=== PATIENT | male | born 1950 | race Caucasian/White ===

== ENCOUNTER → 2023-06-09 10:28 | Outpatient (REF) | payer MEDICARE, BC, SELFPAY | LOC: RAD 10:28 | PROVIDERS: ATTENDING PHYSICIAN Nurse Practitioner; FAMILY PHYSICIAN Registered Nurse | DX: K70.31 Alcoholic cirrhosis of liver with ascites (principal) | CPT/HCPCS: 76700 ==

== ENCOUNTER 2023-07-01 16:01 | Emergency (ER) | payer MEDICARE, BC, SELFPAY ==
[2023-07-01 16:13] VITALS: BP 121/65
[2023-07-01 16:34] LABS: % Basophils 0.5 % (0-2); % Eosinophils 6.1 % (0-6); % Immature Granulocytes 0.5 % (0-0.5); % Lymphocytes 11.8 % (20.5-51.1); % Monocytes 4.4 % (1.7-9.3); % Neutrophils 76.7 % (42.2-75.2); Absolute Basophils 0.1 10^3/uL (0-0.2); Absolute Eosinophils 0.7 10^3/uL (0-0.7); Absolute Immature Granulocytes 0.1 10^3/uL (0-0.05); Absolute Lymphocytes 1.4 10^3/uL (1.2-3.4); Absolute Monocytes 0.5 10^3/uL (0.1-0.6); Absolute Neutrophils 8.8 10^3/uL (1.4-6.5); Hematocrit 45.2 % (39.0-52.0); Hemoglobin 15.7 g/dL (13.0-18.0); Mean Corp Hgb Conc. 34.7 g/dL (33.0-37.0); Mean Corpuscular Volume 92.2 fL (80.0-94.0); Mean Platelet Volume 9.1 fL (7.4-10.4); Nucleated Red Blood Cells % 0 % (-); Platelet Count 207 10^3/uL (130-400); Red Cell Dist. Width 12.4 % (11.5-14.5); White Blood Cell Count 11.5 10^3/uL (4.8-10.8)
[2023-07-01 16:49] LABS: ALT (SGPT) 17 U/L (0-50); AST (SGOT) 28 U/L (17-59); Albumin 4.2 g/dl (3.5-5.0); Alkaline Phosphatase 70 U/L (38-126); Calcium 9.5 mg/dl (8.4-10.2); Carbon Dioxide 22 mmol/L (22-30); Chloride 106 mmol/L (98-107); Glucose 104 mg/dl (70-99); Lipase 62 U/L (23-300); Potassium 4.1 mmol/L (3.5-5.1); Sodium 135 mmol/L (135-145); Total Bilirubin 0.9 mg/dl (0.2-1.3); Total Protein 6.9 g/dl (6.3-8.2); eGFR > 60.00
[2023-07-01 17:00] LABS: Troponin I < 0.012 ng/ml
--- NOTE | 2023-07-01 17:45 | EDRN ---
[facility] in room w/pt.
[2023-07-01 17:50] VITALS: BP 120/82
[2023-07-01 17:53] LABS: Blood Urea Nitrogen 9 mg/dl (9-20)
[2023-07-01 18:00] VITALS: BP 119/71
[2023-07-01] MEDS: MAALOX 40 PO (18:14)
[2023-07-01] MEDS: PEPCID 20 MG IV (18:14)
--- NOTE | 2023-07-01 19:53 | ED.GENMED ---
History of Present Illness
General
Chief Complaint: Chest Problem
Source: patient, spouse and family
Exam Limitations: none
Time Seen by Provider: 07/01/23 17:35
Nursing documentation reviewed up to this point in time: agreed with
Travel History
Have you had any contact with someone who has COVID-19?: No
Do you have any symptoms of coronavirus? Fever > 100 degrees, chills, cough, shortness of breath, sore throat, loss of taste or smell, muscle aches, or headache?: No
History of Present Illness
History of Present Illness:
73-year-old male with past medical history of hypertension gallstones liver disease presenting to the emergency department today with concerns of burning to the central chest made worse specifically with swallowing and different foods also an itchy
rash to the left upper extremity starting yesterday. He claims that he does have a long history of GERD but this feels somewhat worse. Specifically worse with eating and drinking but improves when not eating and drinking. Denies shortness of
breath denies vomiting denies changes in bowel movements. Also noticed a itchy rash to the left upper extremity starting yesterday's gradually worsening today. Denies any known exposures.
Past History
Past History
ED Past Medical History: Cancer (Skin), GERD and Other (PE, Cirrhosis of the liver years ago, )
ED Past Surgical History: Orthopedic (Ravinder knee replacements Spinal fusion and laminectomy) and Other (MOHS surgery, Umbilical hernia, Angioplasty right leg with stent)
Social History
Tobacco: Non-smoker
Alcohol: Former
Personal: Single
Living: with family
Employment: Employed
Review of Systems
Review of Systems
Allergies reviewed?: Yes
All Other Systems: ROS reviewed and negative except as documented in HPI and ROS
Phy Exam
Physical Exam
Physical Exam:
GENERAL: Alert , in no apparent distress
EYE: pupils equal and reactive
NECK: Supple, no significant adenopathy.
ENT: o/p clr, mmm.
CARDIAC: Regular rate and rhythm .
LUNGS: Clear breath sounds bilaterally, no acute respiratory distress, no wheezes/rales/rhonchi
ABDOMEN: Soft, without focal tenderness, no r/g, no cvat
NEUROLOGICAL: Alert and oriented, no focal neuro deficits
SKIN: Left upper extremity in the bicep and area of a raised wheal roughly 10 cm in diameter total no pain seems to be specifically isolated to the superficial tissue of the arm. No deep swelling or warmth. Warm and dry, skin intact.
MUSCULOSKELETAL: No edema, well perfused.
PSYCH: Normal and appropriate interaction.
Course
Orders/Labs/Results
Orders:
Orders
07/01/23 16:03
EKG [Electrocardiogram (*1)] Urgent
Reason for Study: Chest Pain
EKG- Treatment ONCE
07/01/23 16:24
Complete Blood Count/With Diff Urgent
Comprehensive Metabolic Panel Urgent
Lipase Urgent
Troponin I Urgent
07/01/23 17:36
Chest [CR Chest - 2 Views ] Urgent
Comment:
Reason For Exam: cp
07/01/23 17:49
Famotidine [Pepcid] 20 mg IV NOW STA
Mag Hydrox/Al Hydrox/Simeth [Maalox] 30 ml Phenobarb/Hyoscy/Atropine/Scop [] 10 ml PO NOW
US Abdomen Limited Urgent
Reason For Exam: upper abd pain
07/01/23 18:08
Mag Hydrox/Al Hydrox/Simeth [Maalox] 30 ml .ROUTE .STK-MED ONE
Phenobarb/Hyoscy/Atropine/Scop [] 10 ml .ROUTE .STK-MED ONE
Abnormal Lab Results
07/01/23
16:24
WBC 11.5 H 10^3/uL
(4.8-10.8)
MCH 32.0 H pg
(27.0-31.0)
Abs Immat Gran (auto) 0.1 H 10^3/uL
(0-0.05)
Absolute Neuts (auto) 8.8 H 10^3/uL
(1.4-6.5)
Neutrophils % 76.7 H %
(42.2-75.2)
Lymphocytes % 11.8 L %
(20.5-51.1)
Eosinophils % 6.1 H %
(0-6)
Creatinine 0.6 L mg/dL
(0.7-1.3)
Glucose 104 H mg/dl
(70-99)
07/01/23 16:24
07/01/23 16:24
Vital Signs
Initial and Last Documented VS:
Initial Vital Signs
Temp Pulse Resp BP Pulse Ox
98.1 F 80 18 121/65 98
07/01/23 16:13 07/01/23 16:13 07/01/23 16:13 07/01/23 16:13 07/01/23 16:13
Last Documented Vital Signs
Temp Pulse Resp BP Pulse Ox
98.1 F 80 18 121/65 98
07/01/23 16:13 07/01/23 16:13 07/01/23 16:13 07/01/23 16:13 07/01/23 16:13
MDM/Problems Addressed
MDM/Problems Addressed:
73-year-old male presenting to the emergency department today with concerns of discomfort to the chest mainly after eating described as burning and achy discomfort some mild nausea no vomiting vital signs normal upon arrival EKG without ischemic
changes troponin negative normal LFTs normal bilirubin normal lipase ultrasound of the abdomen showed gallstones that he has had chronically but no pain to the right upper quadrant on exam. Chest x-ray without acute abnormalities. Symptoms seem to
be most consistent with likely GI pathology rather than cardiac. Patient had reassuring testing advised for close outpatient follow-up otherwise return precautions given. Patient was written for topical steroid for the rash of the arm and advised
to use antihistamines.
*Critical Care Note
Total Time (30-74mins, 75-104mins- exclusive of procedures): Not Applicable
ED Attending Note
-
Portions of this chart may have been created with voice recognition software.� Occasional wrong word or��sound alike� substitutions may have occurred due to the inherent limitations of voice recognition software.
Discharge Plan
Departure
Patient Disposition: Home (Routine Discharge)
Date of Disposition: 07/01/23
Time of Disposition: 19:56
Patient with high blood pressure during this ER visit?: No
Condition: Good
Covid-19: Not Applicable
Discharge Problem:
Chest pain, Acid reflux, Allergic dermatitis
Instructions: Chest Pain PCP Follow Up
Prescriptions:
New
sucralfate 100 mg/mL suspension
10 ml PO BID Qty: 200 0RF
famotidine 20 mg tablet
20 mg PO BID Qty: 14 0RF
triamcinolone acetonide 0.5 % ointment
1 applic topical BID Qty: 60 0RF
diphenhydramine HCl 25 mg tablet
25 mg PO HS PRN (Reason: allergy symptoms) Qty: 10 0RF
cetirizine [Zyrtec] 10 mg tablet
10 mg PO DAILY Qty: 10 0RF
No Action
cholecalciferol (vitamin D3) [Vitamin D3] 1,000 UNIT tablet
1,000 unit PO DAILY
spironolactone 100 MG tablet
100 mg PO DAILY
cyanocobalamin (vitamin B-12) 1,000 MCG tablet
1 tab PO DAILY
biotin 1 MG tablet
1 mg PO DAILY
nadolol 40 MG tablet
40 mg PO HS
milk thistle 150 mg Capsule
150 mg PO BID
ascorbic acid (vitamin C) [Vitamin C] 500 mg Tablet
500 mg PO DAILY
magnesium 250 mg Tablet
1,000 mg PO DAILY
PreserVision AREDS-2 250-90-40-1 mg Capsule
1 tab PO BID
garlic extract 400 mg Tablet
400 mg PO DAILY
vitamin B6-vitamin E-magnesium
500 mg PO DAILY
zinc
500 mg PO DAILY
omeprazole 40 mg Capsule,Delayed Release(Dr/Ec)
40 mg PO DAILY
oxymetazoline [Nasal [place] Sinus] 0.05 % [place],Non-Aerosol
1 spray INTRANASAL ONCE
clopidogrel 75 mg Tablet
75 mg PO DAILY Qty: 90 0RF
aspirin 81 mg Tablet,Chewable
81 mg PO DAILY Qty: 90 0RF
cephalexin 500 mg capsule
500 mg PO Q6H 10 Days Qty: 40 0RF
Referrals:
NONE,* [Family Provider] -
Activity Restrictions/Additional Instructions:
You came to the emergency department today with concerns of chest discomfort. You had a reassuring evaluation that did not show any emergent cardiac cause. This could be related to a GI problem. Please take the sucralfate as well as the
famotidine and continue your omeprazole to help with symptoms. For the allergic reaction to the left arm please take Benadryl in the and Zyrtec in the morning and also use the topical triamcinolone to help with symptoms. Please follow closely with
your GI doctor within 1 to 2 weeks for further assessment. Return to the emergency department for any worsening, new or concerning symptoms.
Interventions
Interventions:
*Risk Screen - Suicide Last Done: 07/01/23 17:52
*General Assessment Last Done: 07/01/23 17:52
*Neglect/Abuse Screening Last Done: 07/01/23 17:52
ED- Fall Risk Assessment Last Done: 07/01/23 17:52
*ED COVID-19 Vaccine History Last Done: 07/01/23 17:52
ED- Cardiac Assessment Last Done: 07/01/23 17:52
ED- Pulmonary Assessment Last Done: 07/01/23 17:52
Discharge Date and Time
Print Language: UZBEK
[2023-07-01 20:15] VITALS: BP 125/74
== END 2023-07-01 20:28 | disposition home or self-care (01) ==
LOC: EMR 16:01
PROVIDERS: Registered Nurse; EMERGENCY PHYSICIAN Emergency Medicine
DX: L23.9 Allergic contact dermatitis, unspecified cause (principal); R07.89 Other chest pain; K21.9 Gastro-esophageal reflux disease without esophagitis; I10 Essential (primary) hypertension; K74.60 Unspecified cirrhosis of liver; K80.20 Calculus of gallbladder without cholecystitis without obstruction; M19.90 Unspecified osteoarthritis, unspecified site; Z79.82 Long term (current) use of aspirin; Z96.653 Presence of artificial knee joint, bilateral; Z85.828 Personal history of other malignant neoplasm of skin; Z86.711 Personal history of pulmonary embolism; Z98.1 Arthrodesis status
CPT/HCPCS: 99284; 96374; 71046; 76705; 80053; 83690; 84484; 85025; 93005

== ENCOUNTER → 2023-07-06 07:33 | Outpatient (REF) | payer MEDICARE, BC, SELFPAY | LOC: RAD 07:33 | PROVIDERS: ATTENDING PHYSICIAN Surgery Vascular Surgery; FAMILY PHYSICIAN Registered Nurse | DX: I73.9 Peripheral vascular disease, unspecified (principal) | CPT/HCPCS: 93922; 93925 ==

== ENCOUNTER → 2023-07-18 08:34 | Outpatient (REF) | payer MEDICARE, BC, SELFPAY | LOC: RAD 08:34 | PROVIDERS: ATTENDING PHYSICIAN Surgery Vascular Surgery; FAMILY PHYSICIAN Registered Nurse | DX: I70.90 Unspecified atherosclerosis (principal); Z13.6 Encounter for screening for cardiovascular disorders; I77.1 Stricture of artery | CPT/HCPCS: 76770; 93880 ==

== ENCOUNTER → 2023-08-12 06:37 | Day surgery (SDC) | payer MEDICARE, BC, SELFPAY | LOC: GI 06:37 | PROVIDERS: ATTENDING PHYSICIAN Internal Medicine Gastroenterology | DX: Z12.11 Encounter for screening for malignant neoplasm of colon (principal); Z86.010 Personal history of colon polyps; K64.0 First degree hemorrhoids; D12.0 Benign neoplasm of cecum; D12.3 Benign neoplasm of transverse colon; D12.4 Benign neoplasm of descending colon; D12.7 Benign neoplasm of rectosigmoid junction; K63.5 Polyp of colon; R07.9 Chest pain, unspecified; R10.84 Generalized abdominal pain; K74.60 Unspecified cirrhosis of liver; K57.10 Diverticulosis of small intestine without perforation or abscess without bleeding; K22.89 Other specified disease of esophagus; K31.89 Other diseases of stomach and duodenum; R12 Heartburn; K29.50 Unspecified chronic gastritis without bleeding; L83 Acanthosis nigricans | CPT/HCPCS: 45385; 45380; 43239; 88305; 88342 ==

== ENCOUNTER → 2023-08-25 15:04 | Outpatient (REF) | payer MEDICARE, BC, SELFPAY ==
[2023-08-25 16:23] LABS: % Basophils 0.9 % (0-2); % Eosinophils 7.2 % (0-6); % Immature Granulocytes 0.1 % (0-0.5); % Lymphocytes 26.1 % (20.5-51.1); % Monocytes 9.2 % (1.7-9.3); % Neutrophils 56.5 % (42.2-75.2); Absolute Basophils 0.1 10^3/uL (0-0.2); Absolute Eosinophils 0.5 10^3/uL (0-0.7); Absolute Lymphocytes 1.8 10^3/uL (1.2-3.4); Absolute Monocytes 0.6 10^3/uL (0.1-0.6); Absolute Neutrophils 3.9 10^3/uL (1.4-6.5); Hematocrit 44.6 % (39.0-52.0); Hemoglobin 14.9 g/dL (13.0-18.0); Mean Corp Hgb Conc. 33.4 g/dL (33.0-37.0); Mean Corpuscular Hgb 31.5 pg (27.0-31.0); Mean Corpuscular Volume 94.3 fL (80.0-94.0); Mean Platelet Volume 9.5 fL (7.4-10.4); Nucleated Red Blood Cells % 0 % (-); Platelet Count 217 10^3/uL (130-400); Red Blood Cell Count 4.73 10^6/uL (4.70-6.10)
[2023-08-25 16:37] LABS: ALT (SGPT) 13 U/L (0-50); AST (SGOT) 23 U/L (17-59); Albumin 3.9 g/dl (3.5-5.0); Alkaline Phosphatase 80 U/L (38-126); Blood Urea Nitrogen 8 mg/dl (9-20); Calcium 9.3 mg/dl (8.4-10.2); Carbon Dioxide 26 mmol/L (22-30); Chloride 104 mmol/L (98-107); Glucose 87 mg/dl (70-99); Potassium 4.2 mmol/L (3.5-5.1); Sodium 138 mmol/L (135-145); Total Bilirubin 0.8 mg/dl (0.2-1.3); Total Protein 6.5 g/dl (6.3-8.2); eGFR > 60.00
== END ==
LOC: RAD 15:04
PROVIDERS: ATTENDING PHYSICIAN Registered Nurse
DX: M79.89 Other specified soft tissue disorders (principal); R60.0 Localized edema
CPT/HCPCS: 36415; 80053; 85025; 93971

== ENCOUNTER 2023-10-21 06:09 | Day surgery (SDC) | payer MEDICARE, BC, SELFPAY ==
[2023-10-10 07:12] VITALS: BMI 31.5
--- NOTE | 2023-10-10 14:07 | PTCARENOTE ---
Patients 7/8 EKG abnormal- reviewed by Dr. Foley- no additional interventions required
[2023-10-21] VITALS (12 sets, daily range): BP systolic 5–134; BP diastolic 55–79; BMI 31.5
[2023-10-21] MEDS: TYLENOL 1000 MG PO (06:44)
[2023-10-21] MEDS: NORMOSOL-R 1000 IV (06:45)
--- NOTE | 2023-10-21 07:02 | HP.FOC2 ---
Focused History & Physical
Chief Complaint
HPI:
Chief Complaint: Symptomatic cholelithiasis symptomatic cholelithiasis
HPI / Indication for Planned Procedure: Patient is a 73-year-old male recently seen in outpatient surgical evaluation secondary to a history of intermittent postprandial abdominal pain. Typically occurs within 30 minutes of eating lasting for 1-2
hrs then subsiding. known gallstones
Relevant Past Medical History: Hypertension and Other (ETOH cirrhosis - compensated; OA, h/o PE)
Relevant Social History: ETOH (former)
Relevant Family History: Negative
Relevant Past Surgical History: Positive for (b/l TKR; laminectomy, right popliteal stent)
Review of Systems
Review of Pertinent Systems: All Systems Negative
Medication
See Medication form for detailed medications: Yes
Medication List (including Herbals & OTC):
spironolactone 100 mg tablet 100 mg PO DAILY 10/23/20
nadolol 40 mg tablet 40 mg PO HS 10/29/20
milk thistle 150 mg capsule 150 mg PO BID 08/18/22
zinc 500 mg PO DAILY 08/18/22
aspirin 81 mg chewable tablet 81 mg PO DAILY #90 tabs 09/01/22
omeprazole 40 mg capsule,delayed release 40 mg PO DAILY 09/01/22
vitamin [id number] acid 1 tab PO PRN PRN supplement 10/19/23
Medications Reviewed: Yes
Allergies and Reactions
Patient has Allergies: No
Noted Allergies and Reactions:
Allergy/AdvReac Type Severity Reaction Status Date / Time
No Known Allergies Allergy Verified 10/21/23 06:26
Pertinent Physical Exam
All Other Systems: Negative
Head/Neck: Normal
Lungs: Normal
Heart: Normal
Abdomen: Normal
Extremities: Normal
Neurological: Normal
Diagnosis / Assessment
73 y/o male presending for schedule cholecystectomy for management of CCC/symptomatic cholelithiasis
Plan / Procedure
lap rodriguez
Anesthesia/Sedation to be done by Anesthesia Provider: Yes
--- NOTE | 2023-10-21 07:06 | W.SUR.PREOP ---
Pre-Operative Surgical Note
-
I have examined this patient prior to the performance of the scheduled procedure.
The patient's condition is unchanged from the time of the current History and
Physical and the patient is able to undergo the scheduled procedure.
--- NOTE | 2023-10-21 11:50 | W.IMMPOSTOP ---
Addendum entered and electronically signed by Dread Gabriel MD 10/25/23 11:09:
#[id number]
Original Note:
Surgical Immed Post Op Note
-
Primary Surgeon: Harvey
Assisting Surgeon: Luke De La O MD
Tyler Freitas PGY1
Pre-op Diagnosis: CCC; h/o etoh cirrhosis
Post-op Diagnosis: CCC; h/o etoh cirrhosis
Procedure Performed: lap rodriguez with IOC
Anesthesia Type: GETA + 0.25% Marcaine
Specimen / Cultures: GB
Estimated Blood Loss: 200mL
Complications: none immediate
Operative Findings: hepatomegaly with fibrosis c/w h/o etoh cirrhosis.
chronic GB wall thickening with large gallstones occupying lumen of GB; fibrotic tissue planes obscuring cystic triangle and increasing complexity of dissection. dome down cholecystectomy. unable to circumferentially isolate cystic duct but
biliary anatomy confirmed with IOC. cystic duct oversewn with interrupted 2-0 silk. after closure no active bile leak seen. increased operative blood loss d/t portal htn and GB wall diffuse oozing. 1 gm TXA administered.
Drain: 19 julio cesar to monitor for post op bile leak potential
[2023-10-21] MEDS: DILAUDID 0.25 MG IV (12:03)
[2023-10-21] MEDS: NSS 1000 IV ×2 (12:23→21:13)
--- NOTE | 2023-10-21 13:02 | PTCARENOTE ---
1245: Patient arrived to 2S. Full head to toe assessment completed. Lap sites on abdomen open to air and intact. R side FRANKLIN drain intact. IVF running per order. Call ryan within reach and bed in lowest position. Significant other at bedside.
--- NOTE | 2023-10-21 15:10 | CM ---
Addendum entered by Romy Hernandez RN 10/21/23 15:54:
Rhonda fax: [phone]
Original Note:
Reviewed the chart notes and spoke with the patient at the bedside. The patient resides with his significant other in a two story home with no steps to enter through garage. The patient reports no DME/VN/SNF. The patient confirmed his pharmacy of
choice is [facility]. The patient will be staying with his significant other's home. CM continues to be available to patient/family and is monitoring medical plan for needs at discharge.
Plan: Discharge to significant other's home at discharge. Rhonda VELEZ referral sent for FRANKLIN drain management.
[2023-10-21] MEDS: DILAUDID 0.5 MG IV ×2 (15:49→21:08)
[2023-10-21] MEDS: LOVENOX 40 MG SC (17:20)
[2023-10-21] MEDS: CORGARD 40 MG PO (21:07)
[2023-10-22] MEDS: DILAUDID 0.5 MG IV (03:14)
[2023-10-22 03:53] VITALS: BP 97/51
[2023-10-22 07:20] VITALS: BP 97/48
[2023-10-22 07:37] LABS: Hematocrit 41.3 % (39.0-52.0); Mean Corp Hgb Conc. 33.9 g/dL (33.0-37.0); Mean Corpuscular Hgb 31.2 pg (27.0-31.0); Mean Platelet Volume 9.6 fL (7.4-10.4); Platelet Count 150 10^3/uL (130-400); Red Blood Cell Count 4.49 10^6/uL (4.70-6.10); Red Cell Dist. Width 12.8 % (11.5-14.5); White Blood Cell Count 10.1 10^3/uL (4.8-10.8)
[2023-10-22 07:55] LABS: ALT (SGPT) 30 U/L (0-50); AST (SGOT) 42 U/L (17-59); Albumin 3.3 g/dl (3.5-5.0); Alkaline Phosphatase 69 U/L (38-126); Blood Urea Nitrogen 9 mg/dl (9-20); Calcium 8.5 mg/dl (8.4-10.2); Carbon Dioxide 23 mmol/L (22-30); Chloride 104 mmol/L (98-107); Estimated Creatinine Clearance > 125 ml/min; Glucose 101 mg/dl (70-99); Potassium 4.1 mmol/L (3.5-5.1); Sodium 136 mmol/L (135-145); Total Bilirubin 1.4 mg/dl (0.2-1.3); Total Protein 5.7 g/dl (6.3-8.2); eGFR > 60.00
[2023-10-22] MEDS: VITAMIN B1 100 MG PO (08:51)
[2023-10-22] MEDS: FOLVITE 1 MG PO (08:51)
[2023-10-22] MEDS: LOW STRENGTH ASPIRIN 81 MG PO (08:51)
[2023-10-22] MEDS: PROTONIX 40 MG PO (08:51)
--- NOTE | 2023-10-22 10:13 | W.PN.GS2 ---
Today's Communication / Plan
-
Dispo planning
Assessment / Plan
-
73 yo male with a h/o daily ETOH, cirrhosis and htn presenting for scheduled cholecystectomy. POD #1 lap rodriguez with ioc, complex case given portal htn and fibrotic tissue obscuring cystic triangle. FRANKLIN in place with nonbilious SSF noted. Labs stable
post op, slight rise in bilirubin.
Tolerating diet, but awaiting passage of flatus with distention noted
BP low normal this am, otherwise AFVSS. Suspect IV narcotic contributing to low bp
--Continue LFD
--Analgesics prn, change from IV to PO
--D/C IVF
--Continue FRANKLIN, will remain in place upon d/c. VNA arrangements made
--Tentative d/c today vs tomorrow pending diet tolerance over the course of the day
Subjective Data
-
Date of Service: October 22, 2023
Patient seen and examined at bedside with Dr. Ordaz. Denies n/v. Tolerating diet. Feels bloated, has not yet passed flatus. Soreness to RUQ but managable.
Objective Data
-
Intake and Output
10/21/23 10/22/23 10/23/23
06:59 06:59 06:59
Intake Total 3070 / 3070
Output Total 455 / 455 5 / 5
Balance 2615 / 2615 -5 / -5
Intake:
Oral fluids 1170 / 1170
IV fluids (Total) 1900 / 1900
Normosol 100 / 100
Output:
Drain Output (Total) 105 / 105 5 / 5
Right Abdomen Nadir-Larson 105 / 105 5 / 5
Urine, Voided 350 / 350
Other:
Number of approximated MODERATE 2
amounts of urine
Number of approximated LARGE 1
amounts of urine
Vital Signs
Temp Pulse Resp BP Pulse Ox
97.2 F 57 20 97/48 96
10/22/23 09:00 10/22/23 09:00 10/22/23 07:20 10/22/23 08:49 10/22/23 07:20
Lab Results
10/22/23 06:36
10/22/23 06:36
Calcium 8.5 mg/dl (8.4-10.2) 10/22/23 06:36
Total Bilirubin 1.4 mg/dl (0.2-1.3) H 10/22/23 06:36
AST 42 U/L (17-59) 10/22/23 06:36
ALT 30 U/L (0-50) 10/22/23 06:36
Alkaline Phosphatase 69 U/L (38-126) 10/22/23 06:36
Total Protein 5.7 g/dl (6.3-8.2) L 10/22/23 06:36
Albumin 3.3 g/dl (3.5-5.0) L 10/22/23 06:36
Physical Exam
-
NAD
ABD softly distended, NT, LOAD CHECKER
FRANKLIN with SSF (nonbilious)
Incisions with intact glue, no erythema
[2023-10-22 11:16] VITALS: BP 105/67
--- NOTE | 2023-10-22 11:19 | PTCARENOTE ---
Patient with concerns about FRANKLIN drain remaining in place for discharge. RN confirmed with Earnestine Abreu LEASE ADMINISTRATION SUPERVISOR that FRANKLIN is to stay in place. RN clarified with patient FRANKLIN drain is to stay in place and provided education. Patient refused teaching. Care
ongoing at this time.
[2023-10-22] MEDS: NSS IV (12:55)
--- NOTE | 2023-10-22 14:35 | CM ---
Patient has yael medically cleared for discharge to home with [facility] services. [facility] FAX # [phone]. Patient has arranged for transport home.
== END 2023-10-22 15:08 | disposition home or self-care (01) ==
LOC: SDS 06:09
PROVIDERS: ATTENDING PHYSICIAN Surgery
DX: K80.20 Calculus of gallbladder without cholecystitis without obstruction (principal); R16.0 Hepatomegaly, not elsewhere classified; K66.0 Peritoneal adhesions (postprocedural) (postinfection); Z87.19 Personal history of other diseases of the digestive system
CPT/HCPCS: 47563; 88304; 74300; 76000; 80053; 85027

== ENCOUNTER → 2024-01-13 10:37 | Outpatient (REF) | payer MEDICARE, BC, SELFPAY | LOC: HWRAD 10:37 | PROVIDERS: ATTENDING PHYSICIAN Nurse Practitioner; FAMILY PHYSICIAN Registered Nurse | DX: K70.31 Alcoholic cirrhosis of liver with ascites (principal); K21.9 Gastro-esophageal reflux disease without esophagitis; I85.00 Esophageal varices without bleeding | CPT/HCPCS: 76700 ==

== ENCOUNTER → 2024-01-19 08:07 | Outpatient (REF) | payer MEDICARE, BC, SELFPAY | LOC: HWRAD 08:07 | PROVIDERS: ATTENDING PHYSICIAN Surgery; FAMILY PHYSICIAN Registered Nurse | DX: Z90.49 Acquired absence of other specified parts of digestive tract (principal); R93.89 Abnormal findings on diagnostic imaging of other specified body structures | CPT/HCPCS: 74177; Q9967 ==

== ENCOUNTER → 2024-01-27 07:24 | Outpatient (REF) | payer MEDICARE, BC, SELFPAY | LOC: RAD 07:24 | PROVIDERS: ATTENDING PHYSICIAN Physician Assistant; FAMILY PHYSICIAN Registered Nurse; OTHER PHYSICIAN Internal Medicine Gastroenterology; REFERRING PHYSICIAN Surgery Vascular Surgery | DX: I73.9 Peripheral vascular disease, unspecified (principal); R60.0 Localized edema; I65.22 Occlusion and stenosis of left carotid artery | CPT/HCPCS: 93880; 93922; 93925 ==

== ENCOUNTER → 2024-01-30 07:38 | Outpatient (REF) | payer MEDICARE, BC, SELFPAY ==
[2024-01-30 08:10] LABS: % Basophils 1.1 % (0-2); % Eosinophils 5.8 % (0-6); % Immature Granulocytes 0.3 % (0-0.5); % Lymphocytes 22.9 % (20.5-51.1); % Monocytes 7.6 % (1.7-9.3); % Neutrophils 62.3 % (42.2-75.2); Absolute Basophils 0.1 10^3/uL (0-0.2); Absolute Eosinophils 0.4 10^3/uL (0-0.7); Absolute Lymphocytes 1.7 10^3/uL (1.2-3.4); Absolute Monocytes 0.6 10^3/uL (0.1-0.6); Absolute Neutrophils 4.5 10^3/uL (1.4-6.5); Hematocrit 43.6 % (39.0-52.0); Hemoglobin 14.9 g/dL (13.0-18.0); Mean Corp Hgb Conc. 34.2 g/dL (33.0-37.0); Mean Corpuscular Hgb 31.5 pg (27.0-31.0); Mean Corpuscular Volume 92.2 fL (80.0-94.0); Mean Platelet Volume 8.9 fL (7.4-10.4); Nucleated Red Blood Cells % 0 % (-); Platelet Count 212 10^3/uL (130-400); Red Blood Cell Count 4.73 10^6/uL (4.70-6.10); White Blood Cell Count 7.2 10^3/uL (4.8-10.8)
[2024-01-30 08:22] LABS: INR 0.98; PT 12.7 Sec (11.4-14.6)
[2024-01-30 08:55] VITALS: BP 137/93; BP_SYST 55
[2024-01-30] MEDS: STERILE WATER FOR INJECTION 20 ML IV (09:32)
[2024-01-30] MEDS: ROCEPHIN 2000 MG IV (09:32)
[2024-01-30 12:08] VITALS: BP 138/100
== END ==
LOC: RADI 07:38
PROVIDERS: ATTENDING PHYSICIAN Surgery; FAMILY PHYSICIAN Registered Nurse
DX: K66.8 Other specified disorders of peritoneum (principal); Z90.49 Acquired absence of other specified parts of digestive tract
CPT/HCPCS: 36415; 49406; 85025; 85610; 87015; 87070; 87205; 99152

== ENCOUNTER 2024-02-09 22:42 | Observation (INO) | payer MEDICARE, BC, SELFPAY ==
[2024-02-09 19:13] VITALS: BP 135/66
[2024-02-09 19:33] LABS: % Basophils 0.6 % (0-2); % Eosinophils 2.6 % (0-6); % Immature Granulocytes 0.3 % (0-0.5); % Lymphocytes 8.9 % (20.5-51.1); % Neutrophils 81.6 % (42.2-75.2); Absolute Basophils 0.1 10^3/uL (0-0.2); Absolute Eosinophils 0.3 10^3/uL (0-0.7); Absolute Lymphocytes 1.1 10^3/uL (1.2-3.4); Absolute Monocytes 0.7 10^3/uL (0.1-0.6); Hematocrit 39.6 % (39.0-52.0); Hemoglobin 13.9 g/dL (13.0-18.0); Mean Corp Hgb Conc. 35.1 g/dL (33.0-37.0); Mean Platelet Volume 8.9 fL (7.4-10.4); Nucleated Red Blood Cells % 0 % (-); Platelet Count 186 10^3/uL (130-400); Red Blood Cell Count 4.35 10^6/uL (4.70-6.10); Red Cell Dist. Width 12.8 % (11.5-14.5); White Blood Cell Count 12.3 10^3/uL (4.8-10.8)
[2024-02-09 19:44] VITALS: BP 134/66
[2024-02-09 19:48] VITALS: BMI 33.0
[2024-02-09 19:49] LABS: ALT (SGPT) 19 U/L (0-50); AST (SGOT) 25 U/L (17-59); Alkaline Phosphatase 61 U/L (38-126); Blood Urea Nitrogen 12 mg/dl (9-20); Calcium 9.5 mg/dl (8.4-10.2); Carbon Dioxide 25 mmol/L (22-30); Chloride 103 mmol/L (98-107); Glucose 146 mg/dl (70-99); Lipase 63 U/L (23-300); Potassium 4.6 mmol/L (3.5-5.1); Sodium 138 mmol/L (135-145); Total Bilirubin 0.9 mg/dl (0.2-1.3); Total Protein 6.4 g/dl (6.3-8.2); eGFR > 60.00
[2024-02-09 20:00] VITALS: BP 139/77
--- NOTE | 2024-02-09 20:23 | ED.GENMED ---
History of Present Illness
General
Chief Complaint: Post Operative Problem(s)
Source: patient and spouse
Exam Limitations: none
Time Seen by Provider: 02/09/24 19:46
Nursing documentation reviewed up to this point in time: agreed with
History of Present Illness
History of Present Illness:
Patient status post cholecystectomy in October 2023, who subsequently developed fluid collection around his surgical site, requiring FRANKLIN drain 2 weeks ago, presents to ED secondary to persistent right-sided abdominal discomfort with swelling sensation.
Denies fever or chills. Denies nausea or vomiting. Denies diarrhea. Patient reports normal bowel movements. Denies trauma. Denies chest pain. Denies shortness of breath. Denies coughing. Denies leg pain. Patient was evaluated by his
surgeon, Dr. Gabriel, 2 days ago, secondary to his symptoms. At that time, discussion was held, to potentially see a GI physician for endoscopic stent placement.
Past History
Past History
ED Past Medical History: Cancer (Skin), GERD and Other (PE, Cirrhosis of the liver years ago, )
ED Past Surgical History: Orthopedic (Ravinder knee replacements Spinal fusion and laminectomy) and Other (MOHS surgery, Umbilical hernia, Angioplasty right leg with stent)
Social History
Tobacco: Non-smoker
Alcohol: Former
Personal: Single
Living: with family
Employment: Employed
Review of Systems
Review of Systems
Allergies reviewed?: Yes
All Other Systems: ROS reviewed and negative except as documented in HPI and ROS
Constitutional: Reports no symptoms; Denies fever or chills
EENT: Reports no symptoms
Cardiac: Reports no symptoms
ABD/GI: Reports abdominal pain; Denies nausea, vomiting or diarrhea
Musculoskeletal: Reports no symptoms
Skin: Reports no symptoms
Neurological: Reports no symptoms
Phy Exam
Physical Exam
Physical Exam:
Physical Exam
General: mild distress, not acutely ill. afebrile
Head: nc/at. eomi
Neck: supple. no meningeal signs.
Heart: s1/s2 regular rate and rhythm, no murmur. equal radial pulses.
Lungs: no acute respiratory distress. clear bilaterally
Abdomen: normal bowel sounds. diffusely tender to palpation. FRANKLIN drain in place, and draining into bag
Neuro: alert and oriented. no focal neurological deficits
Skin: no rash
Psychiatric: well kept. interactive and cooperative
Extremities: no edema. no calf tenderness.
Course
Orders/Labs/Results
Orders:
Orders
02/09/24 Dinner
Regular
At Your Request: Full Participation
02/09/24 19:16
EKG [Electrocardiogram (*1)] Urgent
Reason for Study: Shortness of Breath
02/09/24 19:17
EKG- Treatment ONCE
Urinalysis Reflex To Culture Urgent
Date Specimen was Collected: 02/09/24
Time Specimen was Collected: 19:17
02/09/24 19:22
Complete Blood Count/With Diff Urgent
Comprehensive Metabolic Panel Urgent
Lipase Urgent
02/09/24 21:00
Ketorolac [Toradol] 15 mg IV NOW STA
02/09/24 22:05
Admit/Transfer Patient As Directed
Co-Sign Provider:
Level of Care: Observation services
Assign to:: Medical/Surgical
Physician / Group: dr paulino
Diagnosis: intractable right sided abd pain post percutaneous drain
PRN Pain Medication Management As Directed
May give lesser potent ordered pain med per pt: Yes
preference::
Protocol:: Medication orders for pain may be administered in a
manner that supports deferring to patient preference
when the pt is:
- Requesting an ordered lesser potent pain medication.
Least to most potent pain medications are defined
as: acetaminophen < NSAID < tramadol < opioids
(morphine, oxycodone, hydromorphone).
- Requesting a lesser dose of the same medication IF
ORDERED.
- Requesting a less intrusive route of administration
if both routes are prescribed by the provider (PO <
IV).
02/09/24 22:08
Code Status As Directed
Resuscitation Status: Full Code
02/09/24 23:01
Acetaminophen [Tylenol] 650 mg PO Q4HPRN PRN
Docusate Sodium [Colace] 100 mg PO BIDPRN PRN
HYDROmorphone [Dilaudid] 0.5 mg IV Q2HPRN PRN
Ketorolac [Toradol] 15 mg IV Q6HPRN PRN
Ondansetron Injectable [Zofran] 4 mg IV Q6HPRN PRN
02/09/24 23:01
Consult Notification Routine
Specialty to Notify: Gastroenterology
GASTROINTESTINAL CONSULT Routine
Consulting Provider: Idania Ibarra
Was physician already notified: No
Reason for consult: eval for endoscopic stent, hx fluid collection post rodriguez in october 2023
Activity As Directed
Activity Level: Out of Bed-Early Mobility
Intake/ Output As Directed
Frequency: Per unit guidelines
Vital Signs As Directed
Frequency: Per unit guidelines
DX Deep Vein Thrombosis Video Routine
02/09/24 23:09
Artificial Tears (Pf) [Refresh Eye Drops (Pf)] 1 drops BOTH EYES Q4HPRN PRN
02/09/24 23:15
Nadolol [Corgard] 40 mg PO HS
02/10/24 Breakfast
NPO
Allow oral meds: Yes
Allow clear liquids: No
NPO with Ice Chips: Yes
Complete Blood Count/With Diff IN AM
Comprehensive Metabolic Panel IN AM
02/10/24 08:00
Aspirin Chewable [Low Strength Aspirin] 81 mg PO DAILY
Pantoprazole [Protonix] 40 mg PO DAILY
Pyridoxine [Vitamin B-6] 100 mg PO DAILY
Spironolactone [Aldactone] 100 mg PO DAILY
Zinc 50mg (Zinc Sulfate 220mg) [Zinc] 50 mg PO DAILY
02/10/24 18:00
Enoxaparin Sodium [Lovenox] 40 mg SC QPM
Abnormal Lab Results
02/09/24
19:22
WBC 12.3 H 10^3/uL
(4.8-10.8)
RBC 4.35 L 10^6/uL
(4.70-6.10)
MCH 32.0 H pg
(27.0-31.0)
Absolute Neuts (auto) 10.0 H 10^3/uL
(1.4-6.5)
Absolute Lymphs (auto) 1.1 L 10^3/uL
(1.2-3.4)
Absolute Monos (auto) 0.7 H 10^3/uL
(0.1-0.6)
Neutrophils % 81.6 H %
(42.2-75.2)
Lymphocytes % 8.9 L %
(20.5-51.1)
Glucose 146 H mg/dl
(70-99)
02/09/24 19:22
02/09/24 19:22
Vital Signs
Initial and Last Documented VS:
Initial Vital Signs
Temp Pulse Resp BP Pulse Ox
98.7 F 85 17 135/66 97
02/09/24 19:13 02/09/24 19:13 02/09/24 19:13 02/09/24 19:13 02/09/24 19:13
Last Documented Vital Signs
Temp Pulse Resp BP Pulse Ox
97.6 F 66 18 157/74 97
02/09/24 23:05 02/09/24 23:05 02/09/24 23:05 02/09/24 23:05 02/09/24 23:05
MDM/Problems Addressed
MDM/Problems Addressed:
Discussed with on-call surgeon, Dr. Paulino. Does not recommend any imaging studies at this time, nor IV antibiotics, as patient is afebrile. However, in light of patient's ongoing symptoms, does recommend admission to the hospital, for pain
control and further evaluation, including potential imaging studies versus GI intervention, i.e. stent placement.
*Critical Care Note
Total Time (30-74mins, 75-104mins- exclusive of procedures): Not Applicable
ED Attending Note
-
Portions of this chart may have been created with voice recognition software.� Occasional wrong word or��sound alike� substitutions may have occurred due to the inherent limitations of voice recognition software.
Discharge Plan
Departure
Patient Disposition: Admit
Date of Disposition: 02/09/24
Time of Disposition: 21:08
Admit to: Med/Surg
Presentation/result/management discussed w/ accepting MD/DO:
Discharge Problem:
Abdominal pain
Interventions
Interventions:
*Risk Screen - Suicide Last Done: 02/09/24 19:10
*General Assessment Last Done: 02/09/24 19:13
*Neglect/Abuse Screening Last Done: 02/09/24 22:58
ED- Fall Risk Assessment Last Done: 02/09/24 19:49
*ED COVID-19 Vaccine History Last Done: 02/09/24 22:58
*Nursing Disposition Last Done: 02/09/24 22:58
ED-Skin Assessment Last Done: 02/09/24 19:49
Discharge Date and Time
Discharge Date/Time: 02/09/24 22:58
[2024-02-09 21:00] VITALS: BP 143/79
[2024-02-09] MEDS: TORADOL 15 MG IV ×2 (21:20→23:48)
--- NOTE | 2024-02-09 22:21 | HPS.HSE ---
Family Physician
<EAGLE Bhat - Last Filed: 02/09/24 22:47>
-
Family Physician: EAGLE Ledesma
Chief Complaint
<EAGLE Bhat - Last Filed: 02/09/24 22:47>
-
ongoing right quadrant abd pain post perc drain placement 01/30/24
History of Present Illness
Patient is a 74 yo male hx of etoh cirrhosis, gerd,PAD,PE (2009),htn status post cholecystectomy with IOC (given portal htn and fibrotic tissue obscuring cystic triangle) in October 2023, who subsequently developed fluid collection around his surgical
site, requiring FRANKLIN drain 2 weeks ago, presents to ED secondary to persistent right-sided abdominal discomfort with swelling sensation. Denies fever or chills. But did say he felt 'flush' at times. No fever at home. Denies nausea or vomiting.
Denies diarrhea. Patient reports normal bowel movements. Denies trauma. Denies chest pain. Denies shortness of breath. Denies coughing. Denies leg pain. Patient was evaluated by his surgeon, Dr. Gabriel, 2 days ago, secondary to his symptoms.
At that time, discussion was held, to potentially see a GI physician for endoscopic stent placement. Pt states he tried to call Dr chester's office to find out when stent possibly could be placed and was told (4-6 weeks). PT states pain is usually
worse at night interfering with his sleep. Pt states he usually drains about ' an ounce' from perc drain. Usually it is a brown yellow color and tonight more greenish. Also states lower ext with more edema than usual last couple days. Slight redness
to right so - has area biopsied from dermatology last week.
Medical History
<EAGLE Bhat - Last Filed: 02/09/24 22:47>
Past Medical History
Past Medical History: Reports Other (PAD)
Additional Past Medical History:
PAD
HTN
GERD
alcoholic cirrhosis
skin cancer
Past Surgical History: Reports Other
Additional Past Surgical History:
october 2023 lap rodriguez (complicated)
JAN 2024 fluid collection RUQ - perc drain placed 01/30/24
Bilat tkr
MOHS
umbical hernia repair
lumbar lami/fusion
RLE angioplasty with stent
Social History
Tobacco: Non-smoker
Alcohol: Former (quit october 2023)
Drug: None
Personal: Single
Living: With Family
Employment: Employed
Family History
Family History: Not pertinent
Allergies / Home Medications
Allergies reflects when Allergies were last updated in [facility].
Home Medications with original date entered in [facility]
Allergy/Medication List:
Allergies
Allergy/AdvReac Type Severity Reaction Status Date / Time
No Known Allergies Allergy Verified 01/27/24 09:20
Home Medications
spironolactone 100 mg tablet 100 mg PO DAILY Fluid Retention/Swelling 10/23/20
nadolol 40 mg tablet 40 mg PO HS Heart Disease/Condition 10/29/20
milk thistle 150 mg capsule 150 mg PO DAILY 08/18/22
aspirin 81 mg chewable tablet 81 mg PO DAILY #90 tabs 09/01/22
omeprazole 40 mg capsule,delayed release 40 mg PO DAILY Gastrointestinal Issue 09/01/22
biotin 1 mg tablet 1 mg PO DAILY 02/09/24
cyanocobalamin (vitamin B-12) 1,000 mcg tablet 1,000 mcg PO DAILY 02/09/24
fluticasone propionate 50 mcg/actuation nasal spray,suspension 1 spray intranasal DAILYPRN PRN congestion 02/09/24
peg 400-propylene glycol (PF) 0.4 %-0.3 % eye drops in a dropperette (Systane (PF)) 1 drp BOTH EYES Q4HPRN PRN dry eyes 02/09/24
pyridoxine (vitamin B6) 100 mg tablet 100 mg PO DAILY 02/09/24
sildenafil 100 mg tablet 100 mg PO DAILYPRN PRN ed 02/09/24
zinc sulfate 50 mg zinc (220 mg) tablet 50 mg PO DAILY 02/09/24
Review of Systems
<EAGLE Bhat - Last Filed: 02/09/24 22:47>
-
History Source: Patient
A 12 point ROS was completed and negative except as noted: Yes
Constitutional: Reports Sleep Disturbance (due to pain Right quadrant especially at hs)
EENT: Reports No Symptoms
Respiratory: Reports No Symptoms
Cardiac: Reports Other (bilat lower ext edema - worse than usual)
Abdomen/GI: Reports Abdominal Pain (AT drain site and also whole right quadrant.) and Other (feels bloated)
: Reports No Symptoms
Musculoskeletal: Reports No Symptoms
Skin: Reports No Symptoms
Neurological: Reports No Symptoms
Endocrine: Reports No Symptoms
Hematologic/Lymphatic: Reports No Symptoms
Psych: Reports No Symptoms
Physical Exam
<EAGLE Bhat - Last Filed: 02/09/24 22:47>
Vital Signs
Vital Signs
Temp Pulse Resp BP Pulse Ox
98.7 F 64 20 143/79 98
02/09/24 19:13 02/09/24 21:45 02/09/24 22:00 02/09/24 21:00 02/09/24 21:15
Physical Exam
General: Well Developed, Well Nourished, No Apparent Distress and Comfortable (min pain currently after toradol)
HEENT: NormoCephalic, Anicteric, Moist mucous membranes and Good Dentition
Respiratory: Clear and Non Labored Respirations
Cardiac: S1/S2, Regular Rhythm and Peripheral Edema (+1 edema BLE)
Breast: Deferred by me
GI: Soft, Normal Bowel Sounds, Tender (RUQ and RLQ) and Distended (mildly)
Rectal: Deferred by Provider
Genito-urinary: Deferred by me
Musculoskeletal: No Clubbing and No Cyanosis
Skin: Other (right so with erythema. not warm to touch. Post biopsy last week from dermatology. Scab present)
Neuro: Awake, Alert, Oriented, AO x 3, No Motor Deficits and DTR's Intact & Symmetrical
Hematologic/Lymphatic: No Lymphadenopathy
Psych: Calm
Laboratory Results
<EAGLE Bhat - Last Filed: 02/09/24 22:47>
-
02/09/24 19:22
02/09/24 19:22
Laboratory Results
Total Bilirubin 0.9 mg/dl (0.2-1.3) 02/09/24 19:22
AST 25 U/L (17-59) 02/09/24 19:22
ALT 19 U/L (0-50) 02/09/24 19:22
Alkaline Phosphatase 61 U/L (38-126) 02/09/24 19:22
Lipase 63 U/L (23-300) 02/09/24 19:22
Impression/Plan
<EAGLE Bhat - Last Filed: 02/09/24 22:47>
-
IMPRESSION:
intractable pain post perc drain placement 01/30/24
PLAN:
Admit to service of Dr Paulino
Med surg obs
#intractable pain right quad post perc drain
- consult GI for eval of endoscopic stent
-NPO x meds after mid
- I+O of perc drain
-WBC 12.3/ neutrophils 81.6--> repeat in am. Hold off on abx for now
-may need IR consult for tube check?
-pain control: tylenol, toradol, dilaudid
#HTN
-nadolol
#compensated cirrhosis
-cont spironolactone
#GERD
-cont omeprazole
-further recommendations per general surgery
DVT proph: lovenox
full code
<Figueroa Hill MD - Last Filed: 02/10/24 10:04>
-
IMPRESSION:
intractable pain post perc drain placement 01/30/24
PLAN:
Admit to service of Dr Paulino
Med surg obs
#intractable pain right quad post perc drain
- consult GI for eval of endoscopic stent
-NPO x meds after mid
- I+O of perc drain
-WBC 12.3/ neutrophils 81.6--> repeat in am. Hold off on abx for now
-may need IR consult for tube check?
-pain control: tylenol, toradol, dilaudid
#HTN
-nadolol
#compensated cirrhosis
-cont spironolactone
#GERD
-cont omeprazole
-further recommendations per general surgery
DVT proph: lovenox
full code
I saw and examined the patient independently.
The Rodding Anode Worker's note was reviewed and I agree with the note, assessment and plan except where noted below.
Comment: This is a 74-year-old male with a history of alcoholic cirrhosis, varices and ascites status post a subtotal cholecystectomy 10/21/2023 with suture ligation of the cystic duct that initially did well however subsequently developed a delayed
bile leak requiring an IR percutaneous drain which was placed on 01/30/2024 which has been putting out 10 to 20 cc of bile daily since placement. He presented to our hospital yesterday for abdominal pain, distention and edema. His exam is fairly
benign, the IR drain is putting out green bile, he does have some tenderness around the drain site but his exam, blood work are all reassuring.
GI consulted for possible ERCP stent. Ultrasound ordered.
May plan for CT scan abdomen pelvis with IV contrast as we have no post procedural imaging.
N.p.o. for now, will resume diet if no procedure planned today.
Will hold off on antibiotics as there is no sign of infection at this time.
Continue drain to gravity bag, flush with 10 cc daily
Will continue to trend CBC and CMP daily.
All questions answered, patient agreeable plan of care above.
I spent 75 minutes in total for the care of this patient today including direct patient care and counseling, reviewing labs, imaging, coordination of care, as well as documentation.
--- NOTE | 2024-02-09 23:00 | PTCARENOTE ---
Pt arrived via ED stretcher. was able to ambulate to bed. VSS. AAOX3. complains 6/10 pain (see MAR). oriented to room and call ryan. bed in lowest position and locked. care is ongoing.
[2024-02-09 23:05] VITALS: BP 157/74
[2024-02-09] MEDS: CORGARD 40 MG PO (23:34)
[2024-02-09 23:39] VITALS: BMI 32.1
[2024-02-10 05:37] LABS: % Basophils 0.7 % (0-2); % Eosinophils 3.4 % (0-6); % Immature Granulocytes 0.3 % (0-0.5); % Lymphocytes 11.2 % (20.5-51.1); % Monocytes 8.5 % (1.7-9.3); % Neutrophils 75.9 % (42.2-75.2); Absolute Basophils 0.1 10^3/uL (0-0.2); Absolute Eosinophils 0.3 10^3/uL (0-0.7); Absolute Lymphocytes 1.1 10^3/uL (1.2-3.4); Absolute Monocytes 0.8 10^3/uL (0.1-0.6); Absolute Neutrophils 7.4 10^3/uL (1.4-6.5); Hematocrit 41.3 % (39.0-52.0); Mean Corp Hgb Conc. 33.9 g/dL (33.0-37.0); Mean Corpuscular Hgb 31.7 pg (27.0-31.0); Mean Corpuscular Volume 93.4 fL (80.0-94.0); Mean Platelet Volume 9.3 fL (7.4-10.4); Nucleated Red Blood Cells % 0 % (-); Platelet Count 178 10^3/uL (130-400); Red Blood Cell Count 4.42 10^6/uL (4.70-6.10); Red Cell Dist. Width 12.8 % (11.5-14.5); White Blood Cell Count 9.8 10^3/uL (4.8-10.8)
[2024-02-10] MEDS: TORADOL 15 MG IV (06:00)
[2024-02-10 06:11] LABS: ALT (SGPT) 17 U/L (0-50); AST (SGOT) 22 U/L (17-59); Albumin 3.8 g/dl (3.5-5.0); Alkaline Phosphatase 57 U/L (38-126); Blood Urea Nitrogen 12 mg/dl (9-20); Calcium 9.1 mg/dl (8.4-10.2); Carbon Dioxide 26 mmol/L (22-30); Chloride 104 mmol/L (98-107); Estimated Creatinine Clearance 119 ml/min; Glucose 103 mg/dl (70-99); Potassium 4.3 mmol/L (3.5-5.1); Sodium 141 mmol/L (135-145); Total Bilirubin 1.8 mg/dl (0.2-1.3); Total Protein 6.4 g/dl (6.3-8.2); eGFR > 60.00
[2024-02-10 06:29] LABS: Urine Albumin Negative (Neg - Trace); Urine Bilirubin Negative (Negative); Urine Character Clear (Clear); Urine Color Amber; Urine Glucose Negative (Negative); Urine Ketone Negative (Negative); Urine Leukocyte Negative (Negative); Urine Nitrite Negative (Negative); Urine Occult Blood Negative (Negative); Urine Specific Gravity 1.015 (<1.030); Urine Urobilinogen Negative (Neg - 1+)
--- NOTE | 2024-02-10 06:49 | CON.GI ---
Addendum entered and electronically signed by Idania Ibarra DO 02/10/24 12:09:
I saw and examined the patient.
The FOLDER MACHINE OPERATOR or PA's note was reviewed and I agree with the note.
Comment: Patient seen and examined at the bedside. He appears nontoxic and in no acute distress but complains of ongoing discomfort, unable to wait for an outpatient procedure with Dr. Brito. Unfortunately, Dr. Brito is off today, unable to complete his
procedure. We were able to schedule an outpatient appointment next with Dr. Brito, for biliary stent placement. Patient is agreeable to this plan and wishes to be discharged home today. He will come to GI office following discharge for
procedure instructions.
GI will sign off. Please call with questions.
Original Note:
Consultation
-
Date/Time Consultation Requested: 02/09/24 2300
Date/Time Consultation Performed: 02/10/24 0700
Requesting Provider: EAGLE Escalona
Performing Provider: EAGLE Davey, Natacha Ibarra DO
Reason for Consultation: abdominal pain
Medical History
Chief Complaint / HPI
Chief Complaint: right upper quadrant pain
History of Present Illness:
Pt is a 74-year-old male with past medical history of alcoholic cirrhosis with history of remote varices and ascites with last paracentesis in 2014 with history of iron overload, last iron studies within normal limits. He has followed up with
[facility] as he is C2 82Y heterozygous. Her recommendation is to have donation to [facility] once a year at this point Which he has not recently needed. . He quit drinking alcohol completely in September and has been followed in GI office for chronic
liver disease. . He is continuing on nadolol 40 mg daily as well as spironolactone 100 mg daily. He had a cholecystectomy with Dr. Gabriel in October with [facility], complex case given portal htn and fibrotic tissue obscuring cystic triangle . On routine
ultrasound for HCC surveillance and some RUQ pain it was noted that he had a biloma within the gallbladder fossa. This was confirmed on CT of the abdomen and pelvis. This is measuring up to 5.7 cm. Pt was seen by IR for drainage and with continue
pain saw Dr. Gabriel this week with recommended.GI evaluation for internalizing drain and stenting. Patient initially was set being set up for outpatient procedure but continued with right upper quadrant pain and now presents [facility] for
evaluation. On admission he is noted with a mild leukocytosis with a white count of 12,300 stable hemoglobin 13.9 LFTs normal on admission and last INR of 0.98 on 01/29.
At this time patient admits to occasional GERD he does take omeprazole 20 mg daily he does have some constant right upper quadrant pain he did require pain medication overnight and does not feel that he can wait 3 to 4 weeks for further
intervention. He also does complain of some abdominal distention along with lower extremity edema. He relates several weeks ago he did restart spironolactone 100 mg daily and last imaging with a CAT scan in mid January did not show significant
ascites. He otherwise denies odynophagia , nausea, vomiting, diarrhea, constipation, or rectal bleeding.
Past Medical History
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
malnutrition, colon polyps, covid infection 2022 )
Past Surgical History: Cholecystectomy, Orthopedic (lumbar lami for lumbar stenosis, lumbar fusion,knee replacement ) and Other (umbilical hernia repair, cataract surgery, popliteal stent)
Social History
Tobacco: Non-Smoker
Alcohol: Former (Quit September 2023 )
Drug: None
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
Living: With Family
Employment: Retired
Family History
Family History: Other (no family hx GI malignancies )
Allergies / Home Medications
Allergy/AdvReac Type Severity Reaction Status Date / Time
No Known Allergies Allergy Verified 01/27/24 09:20
�Medication �Instructions �Recorded
spironolactone 100 mg tablet 100 mg PO DAILY Fluid 10/23/20
Retention/Swelling
nadolol 40 mg tablet 40 mg PO HS Heart Disease/Condition 10/29/20
milk thistle 150 mg capsule 150 mg PO DAILY 08/18/22
aspirin 81 mg chewable tablet 81 mg PO DAILY #90 tabs 09/01/22
omeprazole 40 mg capsule,delayed 40 mg PO DAILY Gastrointestinal 09/01/22
release Issue
biotin 1 mg tablet 1 mg PO DAILY 02/09/24
cyanocobalamin (vitamin B-12) 1,000 mcg PO DAILY 02/09/24
1,000 mcg tablet
fluticasone propionate 50 1 spray intranasal DAILYPRN PRN 02/09/24
mcg/actuation nasal congestion
spray,suspension
peg 400-propylene glycol (PF) 0.4 1 drp BOTH EYES Q4HPRN PRN dry eyes 02/09/24
%-0.3 % eye drops in a dropperette
(Systane (PF))
pyridoxine (vitamin B6) 100 mg 100 mg PO DAILY 02/09/24
tablet
sildenafil 100 mg tablet 100 mg PO DAILYPRN PRN ed 02/09/24
zinc sulfate 50 mg zinc (220 mg) 50 mg PO DAILY 02/09/24
tablet
Review of Systems
-
History Source: Patient
Constitutional: Reports Weight Gain and Chills
EENT: Reports No Symptoms
Respiratory: Reports No Symptoms
Abdomen/GI: Reports Abdominal Pain and Other (abd distention)
: Reports No Symptoms
Musculoskeletal: Reports No Symptoms
Skin: Reports No Symptoms
Neurological: Reports Weakness
Endocrine: Reports No Symptoms
Hematologic/Lymphatic: Reports No Symptoms
Vital Signs
Temp Pulse Resp BP Pulse Ox
97.6 F 66 18 157/74 96
02/09/24 23:05 02/09/24 23:05 02/09/24 23:05 02/09/24 23:05 02/09/24 23:30
Physical Exam
Exam
General: Well Developed, Well Nourished and No Apparent Distress
HEENT: Normocephalic and Anicteric
Respiratory: Clear
Cardiac: Regular Rhythm
GI: Soft, Tender (RUQ with drain in place and bilious drainage) and Distended
Musculoskeletal: No Clubbing, No Cyanosis and Edema
Skin: Warm and Dry
Neuro: Awake, Alert and AO x 3
Psych: Calm
Results
WBC 9.8 10^3/uL (4.8-10.8) 02/10/24 04:33
Hgb 14.0 g/dL (13.0-18.0) 02/10/24 04:33
Hct 41.3 % (39.0-52.0) 02/10/24 04:33
MCV 93.4 fL (80.0-94.0) 02/10/24 04:33
Plt Count 178 10^3/uL (130-400) 02/10/24 04:33
Absolute Neuts (auto) 7.4 10^3/uL (1.4-6.5) H 02/10/24 04:33
Sodium 141 mmol/L (135-145) 02/10/24 04:33
Potassium 4.3 mmol/L (3.5-5.1) 02/10/24 04:33
Chloride 104 mmol/L (98-107) 02/10/24 04:33
Carbon Dioxide 26 mmol/L (22-30) 02/10/24 04:33
BUN 12 mg/dl (9-20) 02/10/24 04:33
Creatinine 0.7 mg/dL (0.7-1.3) 02/10/24 04:33
Calcium 9.1 mg/dl (8.4-10.2) 02/10/24 04:33
Total Bilirubin 1.8 mg/dl (0.2-1.3) H 02/10/24 04:33
AST 22 U/L (17-59) 02/10/24 04:33
ALT 17 U/L (0-50) 02/10/24 04:33
Alkaline Phosphatase 57 U/L (38-126) 02/10/24 04:33
Lipase 63 U/L (23-300) 02/09/24 19:22
Diagnostic Image Results:
ior GI workup:
01/19/2024 CT abdomen pelvis with IV and oral contrast: Thin-walled ovoid fluid collection in the gallbladder fossa measuring up to 5.7 cm. No surrounding inflammations finding likely represent postoperative seroma or biloma
01/18/2024 labs: Sodium 139, potassium 4.6, BUN 9, creatinine 0.79, total bilirubin 0.5, AST 18, ALT 16, alk phos 76, glucose 125, alpha-fetoprotein 2.2, WBC 7.3, hemoglobin 14.4, hematocrit 44.2, platelets 216, INR 1.0, PT 10.8
01/13/2024 ultrasound abdomen: Complex fluid collection within the gallbladder fossa, which may represent postoperative fluid, biloma or abscess. No biliary ductal dilatation appreciated.
08/12/2023 EGD ([facility]) normal Esophagus mucosal nodule found the esophagus. Erythematous mucosa in stomach. Normal examined duodenum. Duodenal diverticulum. Repeat EGD 2 years for surveillance history of cirrhosis.
08/12/2023 [place] ([facility]): Examined portion ileum normal. 3 (1-2 mm) polyps at the rectosigmoid junction, in the descending and at the hepatic flexure (tubular adenomas) removed. Multiple diminutive polyps in the sigmoid colon. (Hyperplastic) one 3
mm polyp in the cecum (tubular adenoma) internal hemorrhoids.
08/15/2023 labs: BUN 6, creatinine 0.69, sodium 143, potassium 4.6, albumin 3.8, bilirubin 0.5, AST 17, ALT 9, alk phos 72, WBC 5.5, hemoglobin 14.9, hematocrit 45.3, platelets 191, celiac panel negative, iron 78, iron saturation 21, TIBC 379,
ferritin 47
11/2022 Labs: WBC 5.4, hemoglobin 13.2, hematocrit 39.7, platelets 223, sodium 139, potassium 4.4, BUN 10, creatinine 0.67, glucose 100, total bilirubin 0.8, AST 18, ALT 14, alk phos 151, albumin 4.1
08/2022 Labs: Alpha-fetoprotein 2.0, ammonia 60, PT 13.6, INR 1.02
06/2022 MRI/MRCP at [place] with findings of chronic liver disease without ascites or liver lesions. He had gallstones.
09/[address] Newell no varices, regular Zline, gastric erythema, normal duodenum. Recall 2-3yrs for FU variceal screening, sooner if decompensates
05/2021 Abd US gallstones with mild dilation of CBD 8mm, no nodularity to liver.
05/2020 EGD - Two columns of Grade I EV and one column of G2 EV. Moderate PHG. Bx negative for HP. Recall 1yr.
06/2020 Abd US no sonographic evidence for abdominal ascites
06/2020- DEXA Bone mineral density within normal limits
Previous work-up negative for viral hepatitis, autoimmune liver disease, celiac disease, with normal ceruloplasmin and A1-AT. 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
07/2014 Colonoscopy-Dr. Perez. fair prep. 5 polyps resected. Three Tubular Adenomas. Recall 5yrs
05/2014- EGD Grade II EV. PHG. Gastritis.
Assessment / Plan
-
Pt is a 74-year-old male with past medical history of alcoholic cirrhosis with history of remote varices and ascites with last paracentesis in 2014 with history of iron overload, last iron studies within normal limits. He has followed up with
Luz Maria as he is C2 82Y heterozygous. Her recommendation is to have donation to [facility] once a year at this point Which he has not recently needed. . He quit drinking alcohol completely in September and has been followed in GI office for chronic
liver disease. . He is continuing on nadolol 40 mg daily as well as spironolactone 100 mg daily. He had a cholecystectomy with Dr. Gabriel in October with ioc, complex case given portal htn and fibrotic tissue obscuring cystic triangle . On routine
ultrasound for HCC surveillance and some RUQ pain it was noted that he had a biloma within the gallbladder fossa. This was confirmed on CT of the abdomen and pelvis. This is measuring up to 5.7 cm. Pt was seen by IR for drainage and with continue
pain saw Dr. Gabriel this week with recommended.GI evaluation for internalizing drain and stenting. Patient initially was set being set up for outpatient procedure but continued with right upper quadrant pain and now presents [facility] for
evaluation. On admission he is noted with a mild leukocytosis with a white count of 12,300 stable hemoglobin 13.9 LFTs normal on admission and last INR of 0.98 on 01/29.
-RUQ pain
-abdominal distention
-leukocytosis - resolved
-s/p complicated rodriguez October 2023
-biloma s/p IR drainage with persistent leak
-abdominal distention/ascites
-cirrhosis with prior hx EV (due screening 09/2025 on chronic Nadolol), ascites controlled on diuretics(Aldactone 10mg daily)
- iron overload with [id number] heterozygote with therapeutic phlebotomy
-PE
-PAD
- colon polyps
PLAN:
Reviewed imaging and concern for persistent bile leak and biloma
will review if any MD avaliable for ERCP today- Dr. Brito if off today
cont NPO til confirmed for procedure
pt on ASA and Lovenox SQ
with some LE edema and abdominal distention will check limited ultrasound to confirm no ascites
mild Leukocytosis on admission now improved off antibiotics
LFT's only mild elevated bili
will follow
I attempted to call pt with update--- he is in US and updated nursing staff
-
-
-
Thank you for consultation and allowing me to participate in the patient's care. Please call the induction coordination engineer GI physician during the after hours with any questions or concerns.
[2024-02-10 06:51] VITALS: BP 109/49
[2024-02-10] MEDS: ZINC 50 MG PO (08:20)
[2024-02-10] MEDS: LOW STRENGTH ASPIRIN 81 MG PO (08:20)
[2024-02-10] MEDS: VITAMIN B-6 100 MG PO (08:20)
[2024-02-10] MEDS: ALDACTONE 100 MG PO (08:20)
[2024-02-10] MEDS: PROTONIX 40 MG PO (08:20)
[2024-02-10 08:37] LABS: Direct Bilirubin 0.2 mg/dl (0.0-0.4)
--- NOTE | 2024-02-10 10:42 | W.PN.UPDATE ---
Update Note
Progress Note Update
reviewed with patient US no ascites. No tap needed. Unfortunately no ERCP availably today. I have arrange with office for ERCP next with Dr. Brito. Pt will go to office for instruction after discharge.
[2024-02-10 11:11] VITALS: BP 146/80
--- NOTE | 2024-02-10 11:22 | CM ---
Met with patient at bedside; initial assessment completed
PEREZ form explained; form signed @ [id number]
Pharmacy verified: [facility] @ [address]
Patient lives w/ in a one story home; 2 steps to enter; bathroom has walk-in stall shower, seat and grab bar
PLOF: reported he was independent with ADLs; ambulates with a walking cane PRN; drives; retired
No recent SNF or Home Health utilization
will transport home
Plan: discharge to home today; no needs; will have outpatient ERCP
--- NOTE | 2024-02-10 11:49 | W.DCSUMMARY ---
Discharge Summary
Discharge Data
Date of Admission: 02/09/24
Date of Discharge: 02/10/24
-
Pending Results: No
Hospital Course
Mr Leonard is a 74 yo male who underwent laparoscopic cholecystectomy on October 21, 2023 complicated by fibrotic tissue obscuring the cystic triangle who subsequently developed a biloma at the surgical site and was being followed as an outpatient with
Dr. Gabriel. Outpatient percutaneous drain placement of the perihepatic fluid collection was performed in IR on 01/30/24 with plan for outpatient evaluation with gastroenterology for ERCP and stenting. In the interim, he presented through the ED
with ongoing discomfort at drain site. He had mild leukocytosis on presentation which resolved off antibiotics. Bilirubin is mildly elevated with nonpurulent bilious drainage noted from perihepatic drain as expected. He was seen and evaluated by
gastroenterology during his course of stay with outpatient ERCP arranged in 6 days. Pain was well controlled without need for narcotics and he was tolerating diet without increased pain. He was discharged to home with plan for outpatient ERCP and
follow up laboratory studies as well as continued surgical follow up.
Discharge Plan
-
Patient Disposition: Home (Routine Discharge)
Discharge Diagnosis/Procedures: Right upper quadrant pain, biloma
Condition: Good
Diet: Low Fat
Activity: No strenuous activity
Additional Activity: Call the office or present to the ER if your drain becomes dislodged
Bathing Restrictions: OK to Shower
Blood Work: Please have a CMP checked in one week
Wound Care: Ok to shower and change the dressing over your drain with a dry gauze sponge. Change daily and as needed for drainage. Keep track of the amount of drainage you are having form your drain for your follow up appointment with your surgeon.
Activity Restrictions/Additional Instructions:
Follow the directions previously provided for drain care by the interventional radiologist. Call your surgeon if you develop a fever or worsening pain.
Follow up with gastroenterology for ERCP procedure this coming 02/16/24
Instructions: How to Keep Track of Your Drainage
Referrals:
Hernesto Brito MD [Active] - 02/16/24 (Stop at the GI office for instructions)
Dread Gabriel MD [Active] - in one to two weeks
Surinder Cornelius CRNP [Family Provider] -
Prescriptions:
New
acetaminophen [acetaminophen] 325 mg tablet
650 mg PO Q4HPRN PRN (Reason: mild pain) Qty: 1 0RF
ibuprofen 200 mg tablet
400 - 600 mg PO Q6HPRN PRN (Reason: moderate pain) Qty: 1 0RF
Continued
spironolactone 100 MG tablet
100 mg PO DAILY
nadolol 40 MG tablet
40 mg PO HS
milk thistle 150 mg Capsule
150 mg PO DAILY
omeprazole 40 mg Capsule,Delayed Release(Dr/Ec)
40 mg PO DAILY
aspirin 81 mg Tablet,Chewable
81 mg PO DAILY Qty: 90 0RF
cyanocobalamin (vitamin B-12) 1,000 mcg Tablet
1,000 mcg PO DAILY
sildenafil 100 mg Tablet
100 mg PO DAILYPRN PRN (Reason: ed)
zinc sulfate 50 mg zinc (220 mg) Tablet
50 mg PO DAILY
pyridoxine (vitamin B6) 100 mg Tablet
100 mg PO DAILY
fluticasone propionate 50 mcg/actuation [place],Suspension
1 spray INTRANASAL DAILYPRN PRN (Reason: congestion)
biotin 1 mg Tablet
1 mg PO DAILY
Systane (PF) 0.4-0.3 % Dropperette
1 drp BOTH EYES Q4HPRN PRN (Reason: dry eyes)
Discharge Orders:
Discharge Patient (As Directed); Ordered 02/10/24
Ordered By: Earnestine Abreu
Discharge Date and Time
Discharge Date/Time: 02/10/24 11:22
Print Language: EGYPTIAN
== END 2024-02-10 11:22 | disposition home or self-care (01) ==
LOC: 2 SOUTH 22:42
PROVIDERS: Emergency Medicine; Nurse Practitioner Family; ADMITTING PHYSICIAN Surgery; CONSULT PHYSICIAN Internal Medicine; EMERGENCY PHYSICIAN Emergency Medicine; FAMILY PHYSICIAN Registered Nurse
DX: R10.11 Right upper quadrant pain (principal); K70.31 Alcoholic cirrhosis of liver with ascites; K21.9 Gastro-esophageal reflux disease without esophagitis; R06.02 Shortness of breath; R73.01 Impaired fasting glucose; R14.0 Abdominal distension (gaseous); E78.00 Pure hypercholesterolemia, unspecified; R60.0 Localized edema; D72.829 Elevated white blood cell count, unspecified; R94.31 Abnormal electrocardiogram [ECG] [EKG]; I10 Essential (primary) hypertension; K76.6 Portal hypertension; I73.9 Peripheral vascular disease, unspecified; Z90.49 Acquired absence of other specified parts of digestive tract; Z98.1 Arthrodesis status; Z96.653 Presence of artificial knee joint, bilateral; Z85.828 Personal history of other malignant neoplasm of skin; Z79.82 Long term (current) use of aspirin; Z86.711 Personal history of pulmonary embolism; Z86.16 Personal history of COVID-19; Z86.0100 Personal history of colon polyps, unspecified
CPT/HCPCS: 76705; 80053; 81003; 82248; 83690; 85025; 93005; 96374; 99284

== ENCOUNTER 2024-02-16 06:32 | Day surgery (SDC) | payer MEDICARE, BC, SELFPAY ==
[2024-02-16] VITALS (8 sets, daily range): BP systolic 16–175; BP diastolic 67–90; BMI 31.2
== END 2024-02-16 12:54 | disposition home or self-care (01) ==
LOC: GI 06:32
PROVIDERS: ATTENDING PHYSICIAN Internal Medicine Gastroenterology
DX: K83.8 Other specified diseases of biliary tract (principal); K83.9 Disease of biliary tract, unspecified
CPT/HCPCS: 43274; 74330; 76000; C1769; C2625

== ENCOUNTER 2024-02-17 02:16 | Inpatient (IN) | payer MEDICARE, BC, SELFPAY ==
[2024-02-16 19:47] VITALS: BP 123/66
[2024-02-16 22:39] LABS: % Basophils 0.3 % (0-2); % Eosinophils 0.2 % (0-6); % Immature Granulocytes 0.6 % (0-0.5); % Monocytes 7.1 % (1.7-9.3); % Neutrophils 87.8 % (42.2-75.2); Absolute Basophils 0.1 10^3/uL (0-0.2); Absolute Immature Granulocytes 0.1 10^3/uL (0-0.05); Absolute Lymphocytes 0.6 10^3/uL (1.2-3.4); Absolute Monocytes 1.1 10^3/uL (0.1-0.6); Absolute Neutrophils 14.2 10^3/uL (1.4-6.5); Hematocrit 40.6 % (39.0-52.0); Hemoglobin 14.5 g/dL (13.0-18.0); Mean Corp Hgb Conc. 35.7 g/dL (33.0-37.0); Mean Corpuscular Hgb 31.4 pg (27.0-31.0); Mean Corpuscular Volume 87.9 fL (80.0-94.0); Mean Platelet Volume 8.7 fL (7.4-10.4); Nucleated Red Blood Cells % 0 % (-); Platelet Count 200 10^3/uL (130-400); Red Blood Cell Count 4.62 10^6/uL (4.70-6.10); Red Cell Dist. Width 12.3 % (11.5-14.5); White Blood Cell Count 16.2 10^3/uL (4.8-10.8)
[2024-02-16 22:41] VITALS: BMI 31.8
[2024-02-16 22:42] VITALS: BP 119/62
[2024-02-16 22:52] LABS: Lactic Acid 1.2 mmol/L (0.7-2.0)
[2024-02-16] MEDS: DILAUDID 0.25 MG IV (22:53)
[2024-02-16 23:00] VITALS: BP 130/66
[2024-02-16 23:14] LABS: COVID-19 Antigen Negative (Negative)
[2024-02-16 23:27] LABS: ALT (SGPT) 22 U/L (0-50); AST (SGOT) 31 U/L (17-59); Alkaline Phosphatase 65 U/L (38-126); Blood Urea Nitrogen 17 mg/dl (9-20); Calcium 9.2 mg/dl (8.4-10.2); Carbon Dioxide 22 mmol/L (22-30); Chloride 104 mmol/L (98-107); Estimated Creatinine Clearance 118 ml/min; Glucose 120 mg/dl (70-99); Potassium 4.4 mmol/L (3.5-5.1); Sodium 140 mmol/L (135-145); Total Bilirubin 1.7 mg/dl (0.2-1.3); Total Protein 6.6 g/dl (6.3-8.2); eGFR > 60.00
[2024-02-16 23:33] LABS: Lipase 143 U/L (23-300)
--- NOTE | 2024-02-16 23:46 | ED.GENMED ---
History of Present Illness
<Bud Rice PA-C - Last Filed: 02/17/24 00:00>
General
Chief Complaint: Post Operative Problem(s)
Time Seen by Provider: 02/16/24 21:56
History of Present Illness
History of Present Illness:
74-year-old male presents to the emergency department for evaluation of fever and chills as well as general malaise beginning shortly after returning home from an endoscopy/ERCP and biliary stent performed today. Patient had a complicated
cholecystectomy in October with a resultant biloma and percutaneous drain that is still in place. Patient was admitted overnight approximately 1 week ago due to concern for possible biliary infection, was seen to have nonpurulent biliary drainage and
outpatient ERCP was then arranged. Procedure was performed today with a plastic stent to the common bile duct and a biliary sphincterotomy was performed. He feels profoundly weak and cannot stand under his own power. Tmax at home was 100
Fahrenheit and Tylenol was administered prior to arrival in the ER today. He does report mild upper abdominal pain as well
Past History
<Bud Rice PA-C - Last Filed: 02/17/24 00:00>
Past History
ED Past Medical History: Cancer (Skin), GERD and Other (PE, Cirrhosis of the liver years ago, )
ED Past Surgical History: Orthopedic (Ravinder knee replacements Spinal fusion and laminectomy) and Other (MOHS surgery, Umbilical hernia, Angioplasty right leg with stent)
Social History
Tobacco: Non-smoker
Alcohol: Former
Personal: Single
Living: with family
Employment: Employed
Review of Systems
<Bud Rice PA-C - Last Filed: 02/17/24 00:00>
Review of Systems
Allergies reviewed?: Yes
All Other Systems: ROS reviewed and negative except as documented in HPI and ROS
Phy Exam
<Bud Rice PA-C - Last Filed: 02/17/24 00:00>
Physical Exam
Physical Exam:
GEN: Well appearing, NAD, WDWN
Eyes: PERRLA, EOMs intact, no scleral icterus
HENT: NCAT, oral mucosa moist, no JVD, no cervical adenopathy.
Lungs: CTAB, no wheezes, rales, rhonchi, normal chest wall excursion
Cardiac: RRR, no M/R/G, no peripheral edema. Radial pulses 2+ bilat
Abdomen: Mild upper abdominal tenderness, no rigidity. Biliary drain in the right lateral abdominal wall, site is clean and dry with nonpurulent bilious fluid in the tubing
Neuro: AO x 3
MSK: No gross deformity or ecchymosis. No edema. No digital clubbing
Skin: No rashes, petechiae. Normal color, no pallor or jaundice.
Psych: Calm, cooperative, proper hygiene
Course
<Bud Rice PA-C - Last Filed: 02/17/24 00:00>
Orders/Labs/Results
Orders:
Orders
02/16/24 22:27
Complete Blood Count/With Diff Urgent
Lactic Acid Q4H
Comment: CANCEL 2nd LACTIC ACID IF 1st LACTIC ACID IS LESS THAN 2
Blood Culture Q30M
LUIS ALFREDO Source: Blood/Venous
Specimen Description:
Influenza A+B Rapid Molecular Urgent
LUIS ALFREDO Source: Nasal Swab
Specimen Description:
02/16/24 22:30
Blood Culture Q30M
LUIS ALFREDO Source: Blood/Venous
Specimen Description:
02/16/24 22:44
COVID-19 Antigen Urgent
Source: Nasal Swab
02/16/24 22:49
HYDROmorphone [Dilaudid] 0.25 mg IV NOW STA
02/16/24 22:59
CMP [Comprehensive Metabolic Panel] Urgent
Lipase Urgent
Comment: ADD ON
02/16/24 23:17
Add On- LAB Urgent
Tests Added?: lipase
02/16/24 23:41
Urinalysis Reflex To Culture Urgent
02/16/24 23:55
Piperacillin/Tazo 3.375 Gram [Zosyn] 3.375 gram in 50 ml IV NOW
02/16/24 23:56
0.9% Sodium Chloride 1000 ml [Nss] 1,000 ml IV BOLUS
02/17/24 00:45
CT Abd/Pel (IV only)-DH only Urgent
Reason For Exam: upper abd pain, s/p ERCP
Abnormal Lab Results
02/16/24 02/16/24
22:27 22:59
WBC 16.2 H 10^3/uL
(4.8-10.8)
RBC 4.62 L 10^6/uL
(4.70-6.10)
MCH 31.4 H pg
(27.0-31.0)
Abs Immat Gran (auto) 0.1 H 10^3/uL
(0-0.05)
Absolute Neuts (auto) 14.2 H 10^3/uL
(1.4-6.5)
Absolute Lymphs (auto) 0.6 L 10^3/uL
(1.2-3.4)
Absolute Monos (auto) 1.1 H 10^3/uL
(0.1-0.6)
Immature Gran % 0.6 H %
(0-0.5)
Neutrophils % 87.8 H %
(42.2-75.2)
Lymphocytes % 4.0 L %
(20.5-51.1)
Glucose 120 H mg/dl
(70-99)
Total Bilirubin 1.7 H mg/dl
(0.2-1.3)
02/16/24 22:27
02/16/24 22:59
Vital Signs
Initial and Last Documented VS:
Initial Vital Signs
Temp Pulse Resp BP Pulse Ox
97.8 F 82 16 123/66 97
02/16/24 19:47 02/16/24 19:47 02/16/24 19:47 02/16/24 19:47 02/16/24 19:47
Last Documented Vital Signs
Temp Pulse Resp BP Pulse Ox
99.4 F 82 16 129/72 95
02/16/24 22:44 02/16/24 19:47 02/16/24 19:47 02/17/24 00:00 02/17/24 00:01
<Marcos Leggett, DO - Last Filed: 02/17/24 01:19>
Orders/Labs/Results
Orders:
Orders
02/16/24 22:27
Complete Blood Count/With Diff Urgent
Lactic Acid Q4H
Comment: CANCEL 2nd LACTIC ACID IF 1st LACTIC ACID IS LESS THAN 2
Blood Culture Q30M
LUIS ALFREDO Source: Blood/Venous
Specimen Description:
Influenza A+B Rapid Molecular Urgent
LUIS ALFREDO Source: Nasal Swab
Specimen Description:
02/16/24 22:30
Blood Culture Q30M
LUIS ALFREDO Source: Blood/Venous
Specimen Description:
02/16/24 22:44
COVID-19 Antigen Urgent
Source: Nasal Swab
02/16/24 22:49
HYDROmorphone [Dilaudid] 0.25 mg IV NOW STA
02/16/24 22:59
CMP [Comprehensive Metabolic Panel] Urgent
Lipase Urgent
Comment: ADD ON
02/16/24 23:17
Add On- LAB Urgent
Tests Added?: lipase
02/16/24 23:41
Urinalysis Reflex To Culture Urgent
02/16/24 23:55
Piperacillin/Tazo 3.375 Gram [Zosyn] 3.375 gram in 50 ml IV NOW
02/16/24 23:56
0.9% Sodium Chloride 1000 ml [Nss] 1,000 ml IV BOLUS
02/17/24 00:45
CT Abd/Pel (IV only)-DH only Urgent
Reason For Exam: upper abd pain, s/p ERCP
Abnormal Lab Results
02/16/24 02/16/24
22:27 22:59
WBC 16.2 H 10^3/uL
(4.8-10.8)
RBC 4.62 L 10^6/uL
(4.70-6.10)
MCH 31.4 H pg
(27.0-31.0)
Abs Immat Gran (auto) 0.1 H 10^3/uL
(0-0.05)
Absolute Neuts (auto) 14.2 H 10^3/uL
(1.4-6.5)
Absolute Lymphs (auto) 0.6 L 10^3/uL
(1.2-3.4)
Absolute Monos (auto) 1.1 H 10^3/uL
(0.1-0.6)
Immature Gran % 0.6 H %
(0-0.5)
Neutrophils % 87.8 H %
(42.2-75.2)
Lymphocytes % 4.0 L %
(20.5-51.1)
Glucose 120 H mg/dl
(70-99)
Total Bilirubin 1.7 H mg/dl
(0.2-1.3)
02/16/24 22:27
02/16/24 22:59
Vital Signs
Initial and Last Documented VS:
Initial Vital Signs
Temp Pulse Resp BP Pulse Ox
97.8 F 82 16 123/66 97
02/16/24 19:47 02/16/24 19:47 02/16/24 19:47 02/16/24 19:47 02/16/24 19:47
Last Documented Vital Signs
Temp Pulse Resp BP Pulse Ox
99.4 F 82 16 129/72 95
02/16/24 22:44 02/16/24 19:47 02/16/24 19:47 02/17/24 00:00 02/17/24 00:01
<Bud Rice PA-C - Last Filed: 02/17/24 00:00>
MDM/Problems Addressed
MDM/Problems Addressed:
74-year-old male presents with fever developing after having ERCP performed today. He has noted to be afebrile here however with acetaminophen on board, does have significant leukocytosis however liver enzymes and lipase are within normal limits.
Urinalysis pending, CT pending for further evaluation of postprocedural complications. Ultimately given risk of ascending cholangitis feel this patient would be best suited to be admitted for IV antibiotics and further assessment. Signed out to
Dr. Leggett pending further workup
<Marcos Leggett DO - Last Filed: 02/17/24 01:19>
*Critical Care Note
Total Time (30-74mins, 75-104mins- exclusive of procedures): Not Applicable
ED Attending Note
<Bud Rice PA-C - Last Filed: 02/17/24 00:00>
-
Portions of this chart may have been created with voice recognition software.� Occasional wrong word or��sound alike� substitutions may have occurred due to the inherent limitations of voice recognition software.
<Marcos Leggett DO - Last Filed: 02/17/24 01:19>
ED Attending Note
Patient seen and examined by attending physician: Yes
I performed the substantive portion of visit, reviewed & personally made and approve the management plan that is documented in note by myself or ABBEY.: Yes
ED Attending Note:
Seen with PA examined independently 74-year-old male status post ERCP with stenting earlier today went home had fever chills felt ill labs are noted leukocytosis, LFTs are okay lipase okay CT noted report pending antibiotics have been ordered will
be admitted concern for bacteremia
Discharge Plan
Departure
Patient Disposition: Admit
Date of Disposition: 02/17/24
Time of Disposition: 01:18
Admit to: Med/Surg
Presentation/result/management discussed w/ accepting MD/DO: Hospitalist
Patient with high blood pressure during this ER visit?: No
Condition: Fair
Discharge Problem:
Bacteremia
Prescriptions:
No Action
spironolactone 100 MG tablet
100 mg PO DAILY
nadolol 40 MG tablet
40 mg PO HS
milk thistle 150 mg Capsule
150 mg PO DAILY
omeprazole 40 mg Capsule,Delayed Release(Dr/Ec)
40 mg PO DAILY
aspirin 81 mg Tablet,Chewable
81 mg PO DAILY Qty: 90 0RF
cyanocobalamin (vitamin B-12) 1,000 mcg Tablet
1,000 mcg PO DAILY
sildenafil 100 mg Tablet
100 mg PO DAILYPRN PRN (Reason: ed)
zinc sulfate 50 mg zinc (220 mg) Tablet
50 mg PO DAILY
pyridoxine (vitamin B6) 100 mg Tablet
100 mg PO DAILY
fluticasone propionate 50 mcg/actuation [place],Suspension
1 spray INTRANASAL DAILYPRN PRN (Reason: congestion)
biotin 1 mg Tablet
1 mg PO DAILY
Systane (PF) 0.4-0.3 % Dropperette
1 drp BOTH EYES Q4HPRN PRN (Reason: dry eyes)
acetaminophen [acetaminophen] 325 mg tablet
650 mg PO Q4HPRN PRN (Reason: mild pain) Qty: 1 0RF
ibuprofen 200 mg tablet
400 - 600 mg PO Q6HPRN PRN (Reason: moderate pain) Qty: 1 0RF
Referrals:
Surinder Cornelius CRNP [Family Provider] -
Interventions
Interventions:
*Risk Screen - Suicide Last Done: 02/16/24 19:47
*General Assessment Last Done: 02/16/24 19:47
*Neglect/Abuse Screening Last Done: 02/16/24 19:47
*ED COVID-19 Vaccine History Last Done: 02/16/24 19:47
ED-Skin Assessment Last Done: 02/16/24 22:42
Discharge Date and Time
Print Language: YI
[2024-02-17] VITALS (9 sets, daily range): BP systolic 108–129; BP diastolic 57–75; BMI 31.0
[2024-02-17] MEDS: ZOSYN 50 IV ×5 (00:07→23:16)
[2024-02-17] MEDS: NSS 1000 IV (00:08)
--- NOTE | 2024-02-17 02:05 | HPS.HSE ---
Family Physician
-
Family Physician: EAGLE Ledesma
Chief Complaint
-
Abd Pain / Chills
History of Present Illness
Patient is a 74y M with PMH significant for cirrhosis, ASCVD / PAD and complicated cholecystectomy in October 2023 who presents to ED complaining of abdominal pain and shaking chills this evening. Patient initially underwent lap rodriguez in October 2023.
This was complicated due to marked chronic inflammation / scarring as noted during the original surgery. Patient developed bile leak post-op requiring placement of RUQ drain. He complained of worsening abdominal discomfort and ongoing FRANKLIN drainage
and was evaluated by GI for possible ERCP / biliary stenting.
He was seen here at on 02/15 for this procedure. ERCP was performed with placement of plastic biliary stent.
Patient returned home after the procedure and noted that he was 'out of it'. He then began to develop shaking chills and could not get warm. He denies any prior symptoms / issues following surgeries or anesthesia in the past.
Patient states that he checked his temperature at home and it was 'over 100 twice'. He presented to the ED for further evaluation.
This evening, patient complains of diffuse abdominal pain. He has nausea but has had no emesis, diarrhea, etc.
Medical History
Past Medical History
Past Medical History: Reports Other
Additional Past Medical History:
ASCVD / PAD
Cirrhosis
GERD
History of PE
Skin Cancer
Past Surgical History: Reports Other
Additional Past Surgical History:
ERCP with Biliary Stent (02/16/24)
Biliary Drain Placement (01/2024)
Lap Rodriguez (10/2023)
Bilateral TKA
Umbilical Herniorrhaphy
Lumbar Laminectomy / Fusion
RLE Popliteal Stent
Social History
Tobacco: Non-smoker
Alcohol: Former (Quit drinking in August 2023. History of significant alcohol intake prior to this.)
Drug: None
Family History
Family History: Not pertinent
Allergies / Home Medications
Allergies reflects when Allergies were last updated in [facility].
Home Medications with original date entered in [facility]
Allergy/Medication List:
Allergies
Allergy/AdvReac Type Severity Reaction Status Date / Time
No Known Allergies Allergy Verified 02/16/24 07:42
Home Medications
spironolactone 100 mg tablet 100 mg PO DAILY Fluid Retention/Swelling 10/23/20
nadolol 40 mg tablet 40 mg PO HS Heart Disease/Condition 10/29/20
milk thistle 150 mg capsule 150 mg PO DAILY 08/18/22
aspirin 81 mg chewable tablet 81 mg PO DAILY #90 tabs 09/01/22
omeprazole 40 mg capsule,delayed release 40 mg PO DAILY Gastrointestinal Issue 09/01/22
biotin 1 mg tablet 1 mg PO DAILY Supplement 02/09/24
cyanocobalamin (vitamin B-12) 1,000 mcg tablet 1,000 mcg PO DAILY Supplement 02/09/24
fluticasone propionate 50 mcg/actuation nasal spray,suspension 1 spray intranasal DAILYPRN PRN congestion 02/09/24
peg 400-propylene glycol (PF) 0.4 %-0.3 % eye drops in a dropperette (Systane (PF)) 1 drp BOTH EYES Q4HPRN PRN dry eyes 02/09/24
pyridoxine (vitamin B6) 100 mg tablet 100 mg PO DAILY Supplement 02/09/24
sildenafil 100 mg tablet 100 mg PO DAILYPRN PRN ed 02/09/24
zinc sulfate 50 mg zinc (220 mg) tablet 50 mg PO DAILY Supplement 02/09/24
acetaminophen 325 mg tablet 650 mg (2 x 325 mg) PO Q4HPRN PRN mild pain #1 tab 02/10/24
ibuprofen 200 mg tablet 400 - 600 mg (2 - 3 x 200 mg) PO Q6HPRN PRN moderate pain #1 tab 02/10/24
Review of Systems
-
History Source: Patient
A 12 point ROS was completed and negative except as noted: Yes
Constitutional: Reports Fever, Fatigue and Chills
EENT: Denies Sore Throat
Respiratory: Denies Cough or Trouble Breathing
Cardiac: Denies Chest Pain or Palpitations
Abdomen/GI: Reports Abdominal Pain and Nausea; Denies Vomiting, Diarrhea, Constipated, Bloody Stools or Black Stools
: Denies Dysuria, Frequency or Flank Pain
Musculoskeletal: Denies Joint Pain or Edema
Neurological: Reports Dizzy; Denies Headache
Psych: Denies Depression or Anxiety
Physical Exam
Vital Signs
Vital Signs
Temp Pulse Resp BP Pulse Ox
99.4 F 82 16 108/66 98
02/16/24 22:44 02/16/24 19:47 02/16/24 19:47 02/17/24 02:00 02/17/24 02:00
Physical Exam
General: Other (74y M in no acute distress.)
HEENT: PERRLA and Other (Dry MM.)
Respiratory: Clear; No Wheezes, Rales or Rhonchi
Cardiac: S1/S2 and Regular Rhythm; No Murmur
GI: Other (Diffusely tender. Pos BS. )
Musculoskeletal: No Clubbing, No Cyanosis and Other (Trace - 1+ edema bilateral LEs.)
Neuro: AO x 3
Laboratory Results
-
02/16/24 22:27
02/16/24 22:59
Laboratory Results
Lactic Acid 1.2 mmol/L (0.7-2.0) 02/16/24 22:27
Total Bilirubin 1.7 mg/dl (0.2-1.3) H 02/16/24 22:59
AST 31 U/L (17-59) 02/16/24 22:59
ALT 22 U/L (0-50) 02/16/24 22:59
Alkaline Phosphatase 65 U/L (38-126) 02/16/24 22:59
Lipase 143 U/L (23-300) 02/16/24 22:59
Impression/Plan
-
A/P: Patient is a 74y M with PMH significant for cirrhosis, ASCVD / PAD and complicated cholecystectomy with bile leak in October 2023 who presents to ED for evaluation of fevers / chills s/p ERCP today.
Fevers / Chills
s/p ERCP with Biliary Stenting
s/p Biliary Drain Placement (01/2024)
s/p Complicated Lap Rodriguez (10/2023)
- Admit for further evaluation and treatment.
- Temp 99.4 here after Tylenol prior to presentation.
- New leukocytosis, chills, nausea and malaise after procedure earlier today.
- Continue IV Zosyn for now.
- GI / Surgery evaluations.
- Monitor RUQ drain output.
- CT scan done in the ED this evening with ? stent migration.
- ? Peripancreatic inflammation as well - though lipase in the ED is unremarkable.
ASCVD / PAD
- Stable. Continue ASA uninterrupted.
Cirrhosis
- Stable. Hold diuretic acutely.
- Follow I/Os, daily weights, exam, etc.
- Continue nadolol.
? Hemorrhagic Cystitis
- Hemorrhage within bladder appreciated on this evening's CT scan.
- Patient with no urinary complaints.
- On IV Zosyn for now as noted above.
- Bladder scan protocol to rule out retention due to bleeding / clots.
- Follow-up UA results / symptoms / etc.
GERD
- Stable. Continue PPI.
DVT Prophylaxis: Lovenox
Code Status: Full
[2024-02-17] MEDS: LR 1000 IV ×2 (04:58→17:14)
--- NOTE | 2024-02-17 06:14 | PTCARENOTE ---
Patient arrived from the ED via stretcher at approximately 0415. Patient ambulated from stretcher to bed x1 assist. Patient AAOx3, drowsy. VSS as documented. Assessment as documented. Patient oriented to room, bed in lowest position. Call ryan
within reach.
--- NOTE | 2024-02-17 06:46 | CON.GI ---
Addendum entered and electronically signed by Gin St DO 02/17/24 16:56:
Patient seen and examined independently of EAGLE. I agree with her note with my additions below
Mark is a 74-year-old male with history of alcoholic cirrhosis with a history of remote varices and ascites with last paracentesis in [address] Loera for hemochromatosis who is status post cholecystectomy in October found to have a
delayed cystic duct stump leak and biloma status post IR drainage with percutaneous drain on 01/30/2024. Briefly admitted for pain control then underwent ERCP yesterday 02/16/2024. During the study bile leak was identified and stent was placed
into the CBD. He was discharged home but over the course of the evening developed chills and some discomfort around the drain site and came back to the hospital.He is afebrile, mild leukocytosis of 15,000 blood culture obtained yesterday. Blood
cultures yesterday grew Klebsiella oxytoca. And so far are pending for today. His vital signs are stable normotensive not tachycardic.
CT imaging without oral contrast was questioning if there was a contained perforation however there is no free air and is clinically stable. He needs to maintain his IR drain for another week according to Dr. Gabriel who saw him today. Dr. Brito
will see him in 4 weeks outpatient.
Because of the small questionable abscess outside of the duodenum he is on antibiotics
He is n.p.o. except ice chips will monitor and check labs in the morning
Original Note:
Consultation
-
Date/Time Consultation Requested: 02/17/24 0415
Date/Time Consultation Performed: 02/17/24 0645
Requesting Provider: Mukund Giron DO
Performing Provider: EAGLE Davey, Gin St DO
Reason for Consultation: s/p ERCP leukocytosis, chills
Medical History
Chief Complaint / HPI
Chief Complaint: abdominal pain, chills
History of Present Illness:
Pt is a 74-year-old male with past medical history of alcoholic cirrhosis with history of remote varices and ascites with last paracentesis in 2014 with history of iron overload, last iron studies within normal limits. He has followed up with "Benjie"Luz Maria as he is C2 83Y heterozygous. Her recommendation is to have donation to the [facility] once a year at this point Which he has not recently needed. . He quit drinking alcohol completely in September and has been followed in GI office for chronic
liver disease. . He is continuing on nadolol 40 mg daily as well as spironolactone 100 mg daily. He had a cholecystectomy with Dr. Gabriel in October with ioc, complex case given portal htn and fibrotic tissue obscuring cystic triangle . On routine
ultrasound for HCC surveillance and some RUQ pain it was noted that he had a biloma within the gallbladder fossa. This was confirmed on CT of the abdomen and pelvis. This is measuring up to 5.7 cm. Pt was seen by IR for drainage and with continue
pain saw Dr. Gabriel last week with recommended.GI evaluation for internalizing drain and stenting. He was admitted last week but no ERCP availability and patient was set up for ERCP and stenting 02/15. He completed ERCP with noted papilla in
diverticulum, bile leak found, biliary sphincterotomy completed and stent placed in CBD. On return home noted feeling out of it with shaking chills. On return noted with WBC 16,200 without fever. LFT's with bili 1.7 otherwise normal with normal
lipase. Ct on admission with concern for acute perforated duodenal diverticulum with small periduodenal diverticular abscess. Stent in place without obstruction.
At this time patient admits to stable GERD he does take omeprazole 20 mg daily. He also does complain of some abdominal distention along with diffuse abdominal pain which is unchanged from prior procedure. Worse with palpation. Unsure if
anything makes it better. He relates several weeks ago he did restart spironolactone 100 mg daily and last imaging with a CAT scan in mid January and Us last week did not show significant ascites. He otherwise denies odynophagia , nausea,
vomiting, diarrhea, constipation, or rectal bleeding. + 10 lbs wt loss in last week without change in diet.
Past Medical History
Past Medical History: Cancer (basal cell with prior mohs surgery), GERD, HTN, Hypercholesterolemia and Other (impaired fasting glucose, ETOH cirrhosis with ascites, EV, iron overload with [id number] heterozygote with therapeutic phelbotomy, PE,PAD,
malnutrition, colon polyps, covid infection 2022 )
Past Surgical History: Cholecystectomy, Orthopedic (lumbar lami for lumbar stenosis, lumbar fusion,knee replacement ) and Other (umbilical hernia repair, cataract surgery, popliteal stent)
Social History
Tobacco: Non-Smoker
Alcohol: Former (Quit September 2023 )
Drug: None
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
Living: With Family
Employment: Retired
Family History
Family History: Other (no family hx GI malignancies )
Allergies / Home Medications
Allergy/AdvReac Type Severity Reaction Status Date / Time
No Known Allergies Allergy Verified 02/16/24 07:42
�Medication �Instructions �Recorded
spironolactone 100 mg tablet 100 mg PO DAILY Fluid 10/23/20
Retention/Swelling
nadolol 40 mg tablet 40 mg PO HS Heart Disease/Condition 10/29/20
milk thistle 150 mg capsule 150 mg PO DAILY 08/18/22
aspirin 81 mg chewable tablet 81 mg PO DAILY #90 tabs 09/01/22
omeprazole 40 mg capsule,delayed 40 mg PO DAILY Gastrointestinal 09/01/22
release Issue
biotin 1 mg tablet 1 mg PO DAILY Supplement 02/09/24
cyanocobalamin (vitamin B-12) 1,000 mcg PO DAILY Supplement 02/09/24
1,000 mcg tablet
fluticasone propionate 50 1 spray intranasal DAILYPRN PRN 02/09/24
mcg/actuation nasal congestion
spray,suspension
peg 400-propylene glycol (PF) 0.4 1 drp BOTH EYES Q4HPRN PRN dry eyes 02/09/24
%-0.3 % eye drops in a dropperette
(Systane (PF))
pyridoxine (vitamin B6) 100 mg 100 mg PO DAILY Supplement 02/09/24
tablet
sildenafil 100 mg tablet 100 mg PO DAILYPRN PRN ed 02/09/24
zinc sulfate 50 mg zinc (220 mg) 50 mg PO DAILY Supplement 02/09/24
tablet
acetaminophen 325 mg tablet 650 mg (2 x 325 mg) PO Q4HPRN PRN 02/10/24
mild pain #1 tab
ibuprofen 200 mg tablet 400 - 600 mg (2 - 3 x 200 mg) PO 02/10/24
Q6HPRN PRN moderate pain #1 tab
Review of Systems
-
History Source: Patient
Constitutional: Reports Weight Loss
EENT: Reports No Symptoms
Respiratory: Reports No Symptoms
Cardiac: Reports No Symptoms
Abdomen/GI: Reports Abdominal Pain and Other (drain with no drainage )
: Reports No Symptoms
Musculoskeletal: Reports No Symptoms
Skin: Reports No Symptoms
Neurological: Reports Weakness
Endocrine: Reports No Symptoms
Hematologic/Lymphatic: Reports No Symptoms
Vital Signs
Temp Pulse Resp BP Pulse Ox
98.1 F 70 19 120/66 98
02/17/24 04:28 02/17/24 04:28 02/17/24 04:28 02/17/24 04:28 02/17/24 04:28
Physical Exam
Exam
General: Well Developed, Well Nourished and No Apparent Distress
HEENT: Normocephalic and Anicteric
Respiratory: Clear
Cardiac: Regular Rhythm
GI: Soft, Tender (mild diffuse no rebound or guarding ) and Distended
Musculoskeletal: No Clubbing and No Cyanosis
Skin: Warm and Dry
Neuro: Awake, Alert and AO x 3
Psych: Calm
Results
WBC 16.2 10^3/uL (4.8-10.8) H 02/16/24 22:27
Hgb 14.5 g/dL (13.0-18.0) 02/16/24 22:27
Hct 40.6 % (39.0-52.0) 02/16/24 22:
MCV 87.9 fL (80.0-94.0) 02/16/24 22:
Plt Count 200 10^3/uL (130-400) 02/16/24 22:27
Absolute Neuts (auto) 14.2 10^3/uL (1.4-6.5) H 02/16/24 22:27
Sodium 140 mmol/L (135-145) 02/16/24 22:59
Potassium 4.4 mmol/L (3.5-5.1) 02/16/24 22:59
Chloride 104 mmol/L (98-107) 02/16/24 22:59
Carbon Dioxide 22 mmol/L (22-30) 02/16/24 22:59
BUN 17 mg/dl (9-20) 02/16/24 22:59
Creatinine 0.7 mg/dL (0.7-1.3) 02/16/24 22:59
Calcium 9.2 mg/dl (8.4-10.2) 02/16/24 22:59
Total Bilirubin 1.7 mg/dl (0.2-1.3) H 02/16/24 22:59
AST 31 U/L (17-59) 02/16/24 22:59
ALT 22 U/L (0-50) 02/16/24 22:59
Alkaline Phosphatase 65 U/L (38-126) 02/16/24 22:59
Lipase 143 U/L (23-300) 02/16/24 22:59
Diagnostic Image Results:
02/16/24- CT A/p
1. ACUTE PERFORATED DUODENAL DIVERTICULUM along the medial wall of the 2nd portion of the duodenum with moderate surrounding edema and inflammation extending into the pancreatic head.
2. Small 1.6 cm periduodenal/peridiverticular abscess.
3. Plastic biliary stent in place without evidence for obstruction.
4. Percutaneous drain in the right subhepatic space at the site of previous cholecystectomy.
5. Mild splenomegaly.
6. Mild urinary bladder wall thickening and trabeculation suggesting chronic outlet obstruction.
7. Severe calcific atherosclerotic plaque in the coronary arteries.
8. Severe discogenic degenerative disease at L2/L3 and L3/L4.
9. Previous circumferential spinal fusion and posterior decompression at L4/L5 and L5/S1.
02/10/24- US abdomen limited No ascites is identified sonographically.
03/01 per drainage- 35 ml drainage sent to micro
01/19/2024 CT abdomen pelvis with IV and oral contrast: Thin-walled ovoid fluid collection in the gallbladder fossa measuring up to 5.7 cm. No surrounding inflammations finding likely represent postoperative seroma or biloma
01/18/2024 labs: Sodium 139, potassium 4.6, BUN 9, creatinine 0.79, total bilirubin 0.5, AST 18, ALT 16, alk phos 76, glucose 125, alpha-fetoprotein 2.2, WBC 7.3, hemoglobin 14.4, hematocrit 44.2, platelets 216, INR 1.0, PT 10.8
01/13/2024 ultrasound abdomen: Complex fluid collection within the gallbladder fossa, which may represent postoperative fluid, biloma or abscess. No biliary ductal dilatation appreciated.
08/12/2023 EGD ([facility]) normal Esophagus mucosal nodule found the esophagus. Erythematous mucosa in stomach. Normal examined duodenum. Duodenal diverticulum. Repeat EGD 2 years for surveillance history of cirrhosis.
08/12/2023 [facility] ([facility]): Examined portion ileum normal. 3 (1-2 mm) polyps at the rectosigmoid junction, in the descending and at the hepatic flexure (tubular adenomas) removed. Multiple diminutive polyps in the sigmoid colon. (Hyperplastic) one 3
mm polyp in the cecum (tubular adenoma) internal hemorrhoids.
08/15/2023 labs: BUN 6, creatinine 0.69, sodium 143, potassium 4.6, albumin 3.8, bilirubin 0.5, AST 17, ALT 9, alk phos 72, WBC 5.5, hemoglobin 14.9, hematocrit 45.3, platelets 191, celiac panel negative, iron 78, iron saturation 21, TIBC 379,
ferritin 47
11/2022 Labs: WBC 5.4, hemoglobin 13.2, hematocrit 39.7, platelets 223, sodium 139, potassium 4.4, BUN 10, creatinine 0.67, glucose 100, total bilirubin 0.8, AST 18, ALT 14, alk phos 151, albumin 4.1
08/2022 Labs: Alpha-fetoprotein 2.0, ammonia 60, PT 13.6, INR 1.02
06/2022 MRI/MRCP at [facility] with findings of chronic liver disease without ascites or liver lesions. He had gallstones.
09/[address] Newell no varices, regular Zline, gastric erythema, normal duodenum. Recall 2-3yrs for FU variceal screening, sooner if decompensates
05/2021 Abd US gallstones with mild dilation of CBD 8mm, no nodularity to liver.
05/2020 EGD - Two columns of Grade I EV and one column of G2 EV. Moderate PHG. Bx negative for HP. Recall 1yr.
06/2020 Abd US no sonographic evidence for abdominal ascites
06/2020- DEXA Bone mineral density within normal limits
Previous work-up negative for viral hepatitis, autoimmune liver disease, celiac disease, with normal ceruloplasmin and A1-AT. 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
07/2014 Colonoscopy-Dr. Preez. adrienne prep. 5 polyps resected. Three Tubular Adenomas. Recall 5yrs
05/2014- EGD Grade II EV. PHG. Gastritis.
02/15 Daryl ERCP
- The major papilla was located entirely within a
diverticulum.
- A bile leak was found.
- A biliary sphincterotomy was performed.
- One plastic stent was placed into the common bile
duct.
Assessment / Plan
-
Pt is a 74-year-old male with past medical history of alcoholic cirrhosis with history of remote varices and ascites with last paracentesis in 2014 with history of iron overload, last iron studies within normal limits. He has followed up with
Luz Maria as he is C2 83Y heterozygous. Her recommendation is to have donation to the [facility] once a year at this point Which he has not recently needed. . He quit drinking alcohol completely in September and has been followed in GI office for chronic
liver disease. . He is continuing on nadolol 40 mg daily as well as spironolactone 100 mg daily, He had a cholecystectomy with Dr. Gabriel in October with ioc, complex case given portal htn and fibrotic tissue obscuring cystic triangle . On routine
ultrasound for HCC surveillance and some RUQ pain it was noted that he had a biloma within the gallbladder fossa. This was confirmed on CT of the abdomen and pelvis. This is measuring up to 5.7 cm. Pt was seen by IR for drainage and with continue
pain saw Dr. Gabriel last week with recommended.GI evaluation for internalizing drain and stenting. He was admitted last week but no ERCP availability and patient was set up for ERCP and stenting 02/15. He completed ERCP with noted papilla in
diverticulum, bile leak found, biliary sphincterotomy completed and stent placed in CBD. On return home noted feeling out of it with shaking chills. On return noted with WBC 16,200 without fever. LFT's with bili 1.7 otherwise normal with normal
lipase. Ct on admission with concern for acute perforated duodenal diverticulum with small periduodenal diverticular abscess. Stent in place without obstruction.
-shaking chills/leukocytosis post ERCP
-biloma s/p IR drainage with persistent leak s/p ERCP with stent 02/15
-CT with concern for duodenal perf and small abscess with stent in good placement
-leukocytosis
-s/p complicated rodriguez October 2023
-abdominal distention/hx ascites(no ascites on US 11/8)
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
- iron overload with [id number] heterozygote with therapeutic phlebotomy
-PE
-PAD
- colon polyps
PLAN:
s/p ERCP 02/15 for internalizing drain for bile leak with post procedure chill, leukocytosis
CT as noted with concern for duodenal perf and small abscess with stent in good placement
will review CT with Dr. Brito
no change in pain since prior to procedure
await surgical input for CT and plan for biliary drain
no fever overnight
await blood cultures
NPO til CT reviewed
cont abx
LFT's stable bili 2 otherwise normal
add INR for AM to calculate MELD
will review diuretic regiment with Dr. St on Spironolactone only 100mg daily
pt has been has had ETOH abstinence several years since cirrhosis diagnosis
OP follows with Dr. Lopez and Светлана Denton for chronic liver disease
Pt will need 4 week follow up with Dr. Brito office visit for stent management
-
-
-
Thank you for consultation and allowing me to participate in the patient's care. Please call the electric motors salesperson GI physician during the after hours with any questions or concerns.
[2024-02-17 07:16] LABS: Hematocrit 38.5 % (39.0-52.0); Hemoglobin 13.3 g/dL (13.0-18.0); Mean Corp Hgb Conc. 34.5 g/dL (33.0-37.0); Mean Corpuscular Hgb 31.8 pg (27.0-31.0); Mean Corpuscular Volume 92.1 fL (80.0-94.0); Mean Platelet Volume 9.2 fL (7.4-10.4); Platelet Count 196 10^3/uL (130-400); Red Blood Cell Count 4.18 10^6/uL (4.70-6.10); Red Cell Dist. Width 12.5 % (11.5-14.5); White Blood Cell Count 15.1 10^3/uL (4.8-10.8)
[2024-02-17 07:46] LABS: ALT (SGPT) 18 U/L (0-50); AST (SGOT) 23 U/L (17-59); Albumin 3.4 g/dl (3.5-5.0); Alkaline Phosphatase 60 U/L (38-126); Blood Urea Nitrogen 15 mg/dl (9-20); Calcium 8.8 mg/dl (8.4-10.2); Carbon Dioxide 24 mmol/L (22-30); Chloride 103 mmol/L (98-107); Direct Bilirubin 0.3 mg/dl (0.0-0.4); Estimated Creatinine Clearance 117 ml/min; Glucose 106 mg/dl (70-99); Sodium 138 mmol/L (135-145); Total Protein 5.8 g/dl (6.3-8.2); eGFR > 60.00
[2024-02-17] MEDS: LOW STRENGTH ASPIRIN 81 MG PO (08:11)
[2024-02-17] MEDS: NSS (PRESERVATIVE FREE) 10 ML IV (08:12)
[2024-02-17] MEDS: PROTONIX IV 40 MG IV (08:12)
--- NOTE | 2024-02-17 08:31 | W.PN.HOSP.TC ---
Today's Communication/Plan
-
See PN
Assessment / Plan
Assessment / Plan
74yo M with PMhx alcoholic liver cirrhosis, b/l TKA, spinal laminectomy, iron overload, ASCVD, PAD s/p stent, Hx of symptomatic cholelithiasis, s/p laparoscopic rodriguez in October 2023, the FRANKLIN drain 2/2 biloma on 01/30/24 and ERCP with biliary stent on
02/16/24 came with chills, fevers and weakness started after the procedure. CT showed perforated diverticulum with periduodenal abscess
A/P:
#Sepsis (fever, weakness) 2/2 duodenal diverticular perforation
NPO
GenSx eval - message sent
Zosyn
Bcx pending
no respiratory symp[toms and no dysuria reported
#Hx of bile leak s/p cholecystectomy
with FRANKLIN norman - properly positioned as per CT
s/p ERCP with biliary stent - properly positioned as per ERCP
GI consult
follow LFT
#Liver cirrhosis with portal HTN
#GERD
#PAD s/p stent
#ASCVD
#Hx of spinal fusion and laminectomy
#DJD
#BPH
Watch for urinary retention
cont home meds and established follow up
DVT ppx SCDs
Full code
I have spent at least 59min reviewing
Anticipated Discharge: > 48 hours
Subjective/Interval History
-
Date of Service: February 17, 2024
Objective Data
-
Labs:
Laboratory Results
02/16/24 02/16/24 02/16/24
22:27 22:45 22:59
WBC 16.2 H
Hgb 14.5
Hct 40.6
Plt Count 200
Sodium Cancelled Cancelled 140
Potassium Cancelled Cancelled 4.4
Chloride Cancelled Cancelled 104
Carbon Dioxide Cancelled Cancelled 22
BUN Cancelled Cancelled 17
Creatinine Cancelled Cancelled 0.7
Glucose Cancelled Cancelled 120 H
Calcium Cancelled Cancelled 9.2
Total Bilirubin Cancelled Cancelled 1.7 H
AST Cancelled Cancelled 31
ALT Cancelled Cancelled 22
Alkaline Phosphatase Cancelled Cancelled 65
02/17/24
05:50
WBC 15.1 H
Hgb 13.3
Hct 38.5 L
Plt Count 196
Sodium 138
Potassium 4.0
Chloride 103
Carbon Dioxide 24
BUN 15
Creatinine 0.7
Glucose 106 H
Calcium 8.8
Total Bilirubin 2.0 H
AST 23
ALT 18
Alkaline Phosphatase 60
Vital Signs:
Vital Signs
Temp Pulse Resp BP Pulse Ox
97.6 F 67 18 113/61 97
02/17/24 07:40 02/17/24 07:40 02/17/24 07:40 02/17/24 07:40 02/17/24 07:40
Review of Systems
-
History Source: Patient
All other systems: Reviewed and negative
Constitutional: Reports Fever, Chills and Weakness
Abdomen/GI: Reports Abdominal Pain
Physical Exam
-
General: Comfortable
HEENT: Moist Mucous Membranes
Respiratory: Clear to Auscultation
Cardiac: Regular Rhythm
GI: Soft, Tender and Distended
Musculoskeletal: No Clubbing, No Cyanosis, Edema, Right Lower Extrem and Edema, Left Lower Extrem
Skin: Warm
Neuro: Awake, Alert, Oriented and AO x 3
Psych: Calm
[2024-02-17 08:53] LABS: Urine Albumin Trace (Neg - Trace); Urine Bilirubin Negative (Negative); Urine Character Clear (Clear); Urine Color Yellow; Urine Glucose Negative (Negative); Urine Ketone Negative (Negative); Urine Leukocyte Negative (Negative); Urine Nitrite Negative (Negative); Urine Occult Blood Negative (Negative); Urine Urobilinogen Negative (Neg - 1+)
--- NOTE | 2024-02-17 09:02 | CON.GS ---
Addendum entered and electronically signed by Dread Gabriel MD 02/17/24 15:00:
Patient seen in follow-up this afternoon with nurse practitioner.
Presenting symptoms improved. No more fevers/chills or rigors. Epigastric and right upper quadrant pain persists but improved from time of initial presentation. Still feels distended/bloated.
AFVSS
NAD AAOx3
ABD: Softly distended and tympanitic, mild tenderness palpation but no rebound, rigidity or guarding
IR drain with scant bilious tinged drainage
Assessment/plan: 74-year-old male with known history of delayed cystic duct stump leak and biloma status post IR drainage. Postprocedural day 1 status post ERCP and stent placement for management of cystic duct stump leak. Challenging ERCP due to
duodenal diverticulum. Presenting with bacteremia and possible contained microperforation at duodenal diverticulum but no free perforation, remote free air, no peritonitis is clinically stable.
Lengthy discussions with patient and his reviewing treatment to date and overnight events as well as follow-up CT imaging. Diagram provided at bedside to help review pertinent anatomy for understanding.
Given clinical stability and no radiographic evidence of free perforation recommend continued medical management
N.p.o. except ice chips for comfort
Empiric antibiotic coverage with Zosyn
Follow labs in the a.m.
Must maintain IR drain for at least another week
Continue current biliary drainage through internal stent placed yesterday at ERCP
Discussed with Dr. Brito GI
Original Note:
Consultation
-
Date/Time Consultation Requested: 02/17/24 041
Requesting Provider: Mack
Reason for Consultation: fever s/p ERCP, bile leak s/p rodriguez
Medical History
-
Chief Complaint: chills
History of Present Illness:
Mr Leonard is a 74 yo male with a h/o etoh cirrohosis, gerd, PAD, PE in 2009 and htn who is s/p cholecystectomy with IOC (given portal htn and fibrotic tissue obscuring cystic triangle) in October of 2023 who subsequently developed a perihepatic fluid
collection around the surgical site with a percutaneous drain placed in IR for collection on 01/30/24 with bile noted. He was admitted briefly for pain control with outpatient follow up arranged for ERCP with gastroenterology which took place on
02/16/24. During the study, bile leak was identified and biliary sphincterotomy was preformed with plastic stent placement into the CBD. He was discharged to home following the procedure but notes that over the course of the evening he developed
chills and a temperature of 100 with body aches and presented through the ED for evaluation. He has discomfort near the drain and to the RUQ with mild tenderness on exam. The abdomen is soft but distended. He notes that his last BM was yesterday.
Past Medical History
Past Medical History: Cancer (skin), GERD, HTN and Other (PE 2009, PAD, Alcoholic cirrhoisis)
Past Surgical History: Cholecystectomy (october 2023), Hernia Repair (UHR ), Orthopedic (BL TKR, Lumbar laminectomy and fusion) and Other (MOHs, RLE angioplasty and stent)
Social History
Tobacco: Non-Smoker
Alcohol: Former (quit August 2023)
Family History
Family History: Reviewed & Not Pertinent
Allergies / Home Medications
Allergy/AdvReac Type Severity Reaction Status Date / Time
No Known Allergies Allergy Verified 02/16/24 07:42
�Medication �Instructions �Recorded �Confirmed �Type
spironolactone 100 mg tablet 100 mg PO DAILY Fluid 10/23/20 02/17/24 History
Retention/Swelling
nadolol 40 mg tablet 40 mg PO HS Heart Disease/Condition 10/29/20 02/17/24 History
milk thistle 150 mg capsule 150 mg PO DAILY 08/18/22 02/16/24 History
aspirin 81 mg chewable tablet 81 mg PO DAILY #90 tabs 09/01/22 02/17/24 Rx
omeprazole 40 mg capsule,delayed 40 mg PO DAILY Gastrointestinal 09/01/22 02/17/24 History
release Issue
biotin 1 mg tablet 1 mg PO DAILY Supplement 02/09/24 02/16/24 History
cyanocobalamin (vitamin B-12) 1,000 mcg PO DAILY Supplement 02/09/24 02/16/24 History
1,000 mcg tablet
fluticasone propionate 50 1 spray intranasal DAILYPRN PRN 02/09/24 02/16/24 History
mcg/actuation nasal congestion
spray,suspension
peg 400-propylene glycol (PF) 0.4 1 drp BOTH EYES Q4HPRN PRN dry eyes 02/09/24 02/16/24 History
%-0.3 % eye drops in a dropperette
(Systane (PF))
pyridoxine (vitamin B6) 100 mg 100 mg PO DAILY Supplement 02/09/24 02/16/24 History
tablet
sildenafil 100 mg tablet 100 mg PO DAILYPRN PRN ed 02/09/24 02/16/24 History
zinc sulfate 50 mg zinc (220 mg) 50 mg PO DAILY Supplement 02/09/24 02/16/24 History
tablet
acetaminophen 325 mg tablet 650 mg (2 x 325 mg) PO Q4HPRN PRN 02/10/24 02/16/24 Rx
mild pain #1 tab
ibuprofen 200 mg tablet 400 - 600 mg (2 - 3 x 200 mg) PO 02/10/24 02/16/24 Rx
Q6HPRN PRN moderate pain #1 tab
Review of Systems
-
History Source: Patient
All other systems: Negative unless noted
A 10 point review of systems was completed, and was negative except as per HPI.
Physical Exam
Vital Signs
Temp Pulse Resp BP Pulse Ox
97.6 F 67 18 113/61 97
02/17/24 07:40 02/17/24 07:40 02/17/24 07:40 02/17/24 07:40 02/17/24 07:40
02/16/24 02/17/24 02/18/24
06:59 06:59 06:59
Actual Weight 103.737 kg
Body Mass Index (BMI) 31.0
Lab Results
02/17/24 05:50
02/17/24 05:50
WBC 15.1 10^3/uL (4.8-10.8) H 02/17/24 05:50
Hgb 13.3 g/dL (13.0-18.0) 02/17/24 05:50
Hct 38.5 % (39.0-52.0) L 02/17/24 05:50
Plt Count 196 10^3/uL (130-400) 02/17/24 05:50
Abs Immat Gran (auto) 0.1 10^3/uL (0-0.05) H 02/16/24 22:27
Neutrophils % 87.8 % (42.2-75.2) H 02/16/24 22:27
Physical Exam
General: Well Developed and Well Nourished
HEENT: Moist Mucous Membranes
Respiratory: Non Labored Respirations
GI: Soft, Tender (ruq mild), Distended and Other (no rebound, guarding or rigidity. RUQ percutaneous drain to gravity drainage with light colored bilious fluid noted)
Skin: Warm and Dry
Neuro: Awake, Alert and AO x 3
Data Reviewed
-
CT Scan: Image Personally Visualized and interpreted, Report Reviewed by me, Discussed with Physician and Discussed with Patient
Labs: Labs Reviewed by me, Discussed with Physician and Discussed with Patient
Old Records: Reviewed
Assessment / Plan
-
Mr Leonard is a 74 yo male who underwent cholecystectomy October 21, 2023 with subsequent development of biloma with perihepatic drain placed 01/30/24 now s/p ERCP with stent placement for bile leak on 02/16/24 who presents with chills and malaise/body
aches s/p procedure with tmax of 100 at home. Drain with bile tinged serous drainage noted. Leukocytosis present but trending down with ABX. Afebrile with stable vital signs currently. CT imaging reviewed with fluid/air noted near the pancreatic
head likely secondary to procedure, stent in good position as is IR drain. Feeling better overall on IV abx.
--continue NPO for now
--continue IR drain
--continue with IV abx
--Trend labs/exam
--Gastroenterology following with us
[2024-02-17] MEDS: TYLENOL 650 MG PO (17:21)
[2024-02-17] MEDS: OCEAN, SALINE MIST 2 SPRAYS NASAL (20:24)
[2024-02-17] MEDS: CORGARD 40 MG PO (23:15)
[2024-02-18] MEDS: LR 1000 IV (02:46)
[2024-02-18 06:00] VITALS: BMI 30.7
[2024-02-18] MEDS: ZOSYN 50 IV ×4 (06:09→23:55)
[2024-02-18] MEDS: FLUSH (NSS) 2 FLUSH IV ×2 (06:10→23:56)
[2024-02-18 07:50] VITALS: BP 105/54
[2024-02-18 07:56] LABS: % Basophils 0.5 % (0-2); % Eosinophils 2.3 % (0-6); % Immature Granulocytes 0.3 % (0-0.5); % Lymphocytes 7.7 % (20.5-51.1); % Monocytes 7.5 % (1.7-9.3); % Neutrophils 81.7 % (42.2-75.2); Absolute Basophils 0.1 10^3/uL (0-0.2); Absolute Eosinophils 0.2 10^3/uL (0-0.7); Absolute Lymphocytes 0.8 10^3/uL (1.2-3.4); Absolute Monocytes 0.8 10^3/uL (0.1-0.6); Absolute Neutrophils 8.7 10^3/uL (1.4-6.5); Hematocrit 37.2 % (39.0-52.0); Hemoglobin 12.6 g/dL (13.0-18.0); Mean Corp Hgb Conc. 33.9 g/dL (33.0-37.0); Mean Corpuscular Hgb 31.8 pg (27.0-31.0); Mean Corpuscular Volume 93.9 fL (80.0-94.0); Mean Platelet Volume 8.9 fL (7.4-10.4); Nucleated Red Blood Cells % 0 % (-); Platelet Count 188 10^3/uL (130-400); Red Blood Cell Count 3.96 10^6/uL (4.70-6.10); Red Cell Dist. Width 12.5 % (11.5-14.5); White Blood Cell Count 10.6 10^3/uL (4.8-10.8)
[2024-02-18 07:58] LABS: INR 1.17; PT 15.2 Sec (11.4-14.6)
--- NOTE | 2024-02-18 08:15 | W.PN.HOSP.TC ---
Today's Communication/Plan
-
cont NPO
decrease IVF
cont Abx
start chem DVT PPX since no Sx planned
Assessment / Plan
Assessment / Plan
74yo M with PMhx alcoholic liver cirrhosis, b/l TKA, spinal laminectomy, iron overload, ASCVD, PAD s/p stent, Hx of symptomatic cholelithiasis, s/p laparoscopic rodrgiuez in October 2023, the FRANKLIN drain 2/2 biloma on 01/30/24 and ERCP with biliary stent on
02/16/24 came with chills, fevers and weakness started after the procedure. CT showed perforated diverticulum with possible periduodenal abscess that GEn[facility]x managing conservatively
A/P:
#Sepsis (fever, weakness) 2/2 contained duodenal diverticular perforation with bacteremia
NPO
GenSx eval - conservative mgmt, NPO, Abx, maintain drain for at least 1 week
Zosyn
Bcx Klebsiela Oxitoca pending sensitivities
Repeated Bcx NTD
#Hx of bile leak s/p cholecystectomy
with FRANKLIN norman - properly positioned as per CT
s/p ERCP with biliary stent - properly positioned as per ERCP
GI consult
follow LFT
#Liver cirrhosis with portal HTN
#GERD
#PAD s/p stent
#ASCVD
#Hx of spinal fusion and laminectomy
#DJD
#BPH
Watch for urinary retention
cont home meds and established follow up
#R buttocks ingrown hair, with draining folliculitis
already on Abx
monitor for resolution
DVT ppx Hep
Full code
I have spent at least 39min reviewing
Anticipated Discharge: > 48 hours
Subjective/Interval History
-
Date of Service: February 18, 2024
Objective Data
-
Labs:
Laboratory Results
02/18/24
07:32
WBC 10.6
Hgb 12.6 L
Hct 37.2 L
Plt Count 188
PT Pending
INR Pending
Sodium Pending
Potassium Pending
Chloride Pending
Carbon Dioxide Pending
BUN Pending
Creatinine Pending
Glucose Pending
Calcium Pending
Total Bilirubin Pending
AST Pending
ALT Pending
Alkaline Phosphatase Pending
Vital Signs:
Vital Signs
Temp Pulse Resp BP Pulse Ox
98.5 F 70 18 119/57 98
02/17/24 23:14 02/17/24 23:14 02/17/24 23:14 02/17/24 23:14 02/17/24 23:14
I&O
02/17/24 02/18/24 02/19/24
06:59 06:59 06:59
Intake Total 1100 / 1100 1200 / 1200
Output Total 0 / 0 800 / 800
Balance 1100 / 1100 400 / 400
Review of Systems
-
History Source: Patient
All other systems: Reviewed and negative
Physical Exam
-
General: No Apparent Distress
HEENT: Normocephalic
Cardiac: Regular Rhythm
GI: Soft, Nondistended and Tender (paraumbilical)
Musculoskeletal: No Clubbing, No Cyanosis and No Edema
Neuro: Awake, Alert, Oriented and AO x 3
Psych: Calm
--- NOTE | 2024-02-18 08:16 | W.PN.GI.CBS2 ---
Today's Communication / Plan
-
Slow titration of clear liquids, sent [place] text to nurse
Assessment / Plan
-
Pt is a 74-year-old male with past medical history of alcoholic cirrhosis with history of remote varices and ascites with last paracentesis in 2014 with history of iron overload, last iron studies within normal limits. He has followed up with
[facility] as he is C2 82Y heterozygous. Her recommendation is to have donation to the [facility] once a year at this point Which he has not recently needed. . He quit drinking alcohol completely in September and has been followed in GI office for chronic
liver disease. . He is continuing on nadolol 40 mg daily as well as spironolactone 100 mg daily, He had a cholecystectomy with Dr. Gabriel in October with ioc, complex case given portal htn and fibrotic tissue obscuring cystic triangle . On routine
ultrasound for HCC surveillance and some RUQ pain it was noted that he had a biloma within the gallbladder fossa. This was confirmed on CT of the abdomen and pelvis. This is measuring up to 5.7 cm. Pt was seen by IR for drainage and with continue
pain saw Dr. Gabriel last week with recommended.GI evaluation for internalizing drain and stenting. He was admitted last week but no ERCP availability and patient was set up for ERCP and stenting 02/15. He completed ERCP with noted papilla in
diverticulum, bile leak found, biliary sphincterotomy completed and stent placed in CBD. On return home noted feeling out of it with shaking chills. On return noted with WBC 16,200 without fever. LFT's with bili 1.7 otherwise normal with normal
lipase. Ct on admission with concern for acute perforated duodenal diverticulum with small periduodenal diverticular abscess. Stent in place without obstruction.
-shaking chills/leukocytosis post ERCP
-biloma s/p IR drainage with persistent leak s/p ERCP with stent 02/15
-CT with concern for duodenal perf and small abscess with stent in good placement
-leukocytosis
-s/p complicated rodriguez October 2023
-abdominal distention/hx ascites(no ascites on US 02/09)
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
- iron overload with [id number] heterozygote with therapeutic phlebotomy
-PE
-PAD
- colon polyps
PLAN:
s/p ERCP 02/15 for stent placement for bile leak
CT as noted with concern for Small contained micro duodenal perf and small abscess with stent in good placement
Clinically improved today with less bloating, less epigastric discomfort. His discomfort is mainly around his percutaneous drain
Per surgery will continue biliary drain for at least another week
Discussed with surgery and will slowly advance to clears but no more than clears over the weekend
no fever overnight, improved leukocytosis
Continue antibiotics in the setting of small abscess on imaging with leukocytosis and contained microperforation
Blood cultures from 02/16/2024 1 negative and 1 with Klebsiella oxytoca
LFTs are pending
LFT's stable bili 2 otherwise normal
pt has been has had ETOH abstinence several years since cirrhosis diagnosis
OP follows with Dr. Lopez and Светлана [place] for chronic liver disease
Pt will need 4 week follow up with Dr. Brito office visit for stent management
-
Subjective
Subjective
Date of Service: February 18, 2024
Less bloating and discomfort.
Objective
Data Reviewed
Laboratory Data:
Laboratory Results
02/18/24 07:32
Laboratory Results
Total Bilirubin 2.0 mg/dl (0.2-1.3) H 02/17/24 05:50
AST 23 U/L (17-59) 02/17/24 05:50
ALT 18 U/L (0-50) 02/17/24 05:50
Alkaline Phosphatase 60 U/L (38-126) 02/17/24 05:50
Lipase 143 U/L (23-300) 02/16/24 22:59
Vital Signs and I&O:
Vital Signs
Temp Pulse Resp BP Pulse Ox
98.5 F 70 18 119/57 98
02/17/24 23:14 02/17/24 23:14 02/17/24 23:14 02/17/24 23:14 02/17/24 23:14
I&O
02/17/24 02/18/24 02/19/24
06:59 06:59 06:59
Intake Total 1100 / 1100 1200 / 1200
Output Total 0 / 0 800 / 800
Balance 1100 / 1100 400 / 400
Physical Exam
Physical Exam
HEENT: Anicteric
GI: Soft and Tender (Less tenderness today. Appropriate tenderness over the percutaneous drain)
Extremities: No Edema
Neuro: Non Focal
[2024-02-18 08:20] LABS: ALT (SGPT) 15 U/L (0-50); AST (SGOT) 19 U/L (17-59); Albumin 3.1 g/dl (3.5-5.0); Alkaline Phosphatase 67 U/L (38-126); Blood Urea Nitrogen 9 mg/dl (9-20); Calcium 8.9 mg/dl (8.4-10.2); Carbon Dioxide 24 mmol/L (22-30); Chloride 104 mmol/L (98-107); Estimated Creatinine Clearance 116 ml/min; Glucose 92 mg/dl (70-99); Potassium 4.1 mmol/L (3.5-5.1); Sodium 138 mmol/L (135-145); Total Bilirubin 1.4 mg/dl (0.2-1.3); Total Protein 5.5 g/dl (6.3-8.2); eGFR > 60.00
[2024-02-18] MEDS: LOW STRENGTH ASPIRIN 81 MG PO (08:49)
[2024-02-18] MEDS: PROTONIX IV 40 MG IV (08:49)
[2024-02-18] MEDS: NSS (PRESERVATIVE FREE) 10 ML IV (08:50)
[2024-02-18] MEDS: D5/0.9% SODIUM CHLORIDE 1000 IV ×2 (08:51→22:14)
--- NOTE | 2024-02-18 11:30 | W.PN.GS2 ---
Addendum entered and electronically signed by Edson Monroy MD 02/18/24 13:28:
I saw and examined the patient.
The MANAGER PEST's note was reviewed and I agree with the note.
Comment:
No overnight events. Pain controlled. Passing flatus, no BMs.
AFVSS, ABD soft, mildly distended, not tympanitic, mildly tender in the RUQ, no rebound or guarding; RUQ drain�minimal light bilious
WBC 10.6 from 15.1, Hb 12.6 from 13.3, T. bili 1.4 from 2.0
Continue IR drain to gravity
Okay for clears; will go slow due to microperforation
Recommend DVT PPx
Continue antibiotics with IV Zosyn
Continue pain control with Tylenol and Dilaudid as needed
Original Note:
Today's Communication / Plan
-
Clears only
Continue drain
Assessment / Plan
-
Assessment/plan: 74-year-old male with known history of delayed cystic duct stump leak and biloma status post IR drainage. Postprocedural day 2 status post ERCP and stent placement for management of cystic duct stump leak. Challenging ERCP due to
duodenal diverticulum. Presenting with bacteremia and possible contained microperforation at duodenal diverticulum but no free perforation, remote free air, no peritonitis is clinically stable.
Given clinical stability and no radiographic evidence of free perforation recommend continued medical management
AFVSS
Leukocytosis resolved
minimal outputs now present from IR drain as expected given recent stent placement
Advanced to CLD this am by GI team, would hold on clears for now and not advance further
Antibiotic coverage with Zosyn, await sensitivities from blood cx
Follow labs
Must maintain IR drain for at least another week
Continue current biliary drainage through internal stent placed yesterday at ERCP
VTE ppx with sq lovenox
Subjective Data
-
Date of Service: February 18, 2024
Patient seen and examined at bedside with Dr. Monroy. Denies n/v. Pain still present to RUQ. Feels washed out and fatigued.
Objective Data
-
Intake and Output
02/17/24 02/18/24 02/19/24
06:59 06:59 06:59
Intake Total 1100 / 1100 1200 / 1200
Output Total 0 / 0 800 / 800
Balance 1100 / 1100 400 / 400
Intake:
Oral fluids 0 / 0
Amount of oral supplement(s) 0 / 0
consumed
IV fluids (Total) 1000 / 1000 1100 / 1100
IV piggybacks 100 / 100 100 / 100
Output:
Drain Output (Total) 0 / 0
Right Upper Abdomen Biliary 0 / 0
Urine, Voided 800 / 800
Other:
Number of approximated MODERATE 1
amounts of urine
How many times incontinent 1
MODERATE amount urine
Vital Signs
Temp Pulse Resp BP Pulse Ox
98.7 F 66 16 105/54 96
02/18/24 07:50 02/18/24 07:50 02/18/24 07:50 02/18/24 07:50 02/18/24 10:37
Lab Results
02/18/24 07:32
02/18/24 07:32
Calcium 8.9 mg/dl (8.4-10.2) 02/18/24 07:32
Total Bilirubin 1.4 mg/dl (0.2-1.3) H 02/18/24 07:32
Direct Bilirubin 0.3 mg/dl (0.0-0.4) 02/17/24 05:50
AST 19 U/L (17-59) 02/18/24 07:32
ALT 15 U/L (0-50) 02/18/24 07:32
Alkaline Phosphatase 67 U/L (38-126) 02/18/24 07:32
Total Protein 5.5 g/dl (6.3-8.2) L 02/18/24 07:32
Albumin 3.1 g/dl (3.5-5.0) L 02/18/24 07:32
Physical Exam
-
NAD
ABD softly distended, RUQ tenderness, MANAGER PEST
Perc drain with minimal bile stained output
[2024-02-18 11:36] VITALS: BMI 30.7
[2024-02-18 15:35] VITALS: BP 117/62
[2024-02-18] MEDS: LOVENOX 40 MG SC (17:05)
--- NOTE | 2024-02-18 18:34 | PTCARENOTE ---
Patient advanced to clear liquid diet by GI earlier in shift. Patient stating to this RN after clear liquid meal feeling 'band' around upper abdomen; denies pain or feeling of indigestion, says stomach feels 'full' after drinking liquids. GI made
aware, verbal order placed for NPO diet with meds, sips and ice chips.
[2024-02-18] MEDS: CORGARD 40 MG PO (22:10)
[2024-02-18 23:11] VITALS: BP 133/65
[2024-02-19] MEDS: TYLENOL 650 MG PO (04:07)
[2024-02-19 05:40] VITALS: BMI 30.7
[2024-02-19] MEDS: FLUSH (NSS) 2 FLUSH IV (05:43)
[2024-02-19] MEDS: ZOSYN 50 IV ×2 (05:43→11:44)
[2024-02-19 06:46] LABS: % Basophils 0.6 % (0-2); % Eosinophils 3.5 % (0-6); % Immature Granulocytes 0.4 % (0-0.5); % Lymphocytes 12.4 % (20.5-51.1); % Monocytes 7.2 % (1.7-9.3); % Neutrophils 75.9 % (42.2-75.2); Absolute Basophils 0.1 10^3/uL (0-0.2); Absolute Eosinophils 0.3 10^3/uL (0-0.7); Absolute Lymphocytes 1.1 10^3/uL (1.2-3.4); Absolute Monocytes 0.6 10^3/uL (0.1-0.6); Absolute Neutrophils 6.5 10^3/uL (1.4-6.5); Hematocrit 36.4 % (39.0-52.0); Hemoglobin 12.6 g/dL (13.0-18.0); Mean Corp Hgb Conc. 34.6 g/dL (33.0-37.0); Mean Corpuscular Hgb 31.3 pg (27.0-31.0); Mean Corpuscular Volume 90.3 fL (80.0-94.0); Mean Platelet Volume 9.2 fL (7.4-10.4); Nucleated Red Blood Cells % 0 % (-); Platelet Count 189 10^3/uL (130-400); Red Blood Cell Count 4.03 10^6/uL (4.70-6.10); Red Cell Dist. Width 12.3 % (11.5-14.5); White Blood Cell Count 8.6 10^3/uL (4.8-10.8)
[2024-02-19 07:21] LABS: ALT (SGPT) 13 U/L (0-50); AST (SGOT) 19 U/L (17-59); Albumin 3.1 g/dl (3.5-5.0); Alkaline Phosphatase 64 U/L (38-126); Blood Urea Nitrogen 6 mg/dl (9-20); Calcium 8.3 mg/dl (8.4-10.2); Carbon Dioxide 22 mmol/L (22-30); Chloride 107 mmol/L (98-107); Estimated Creatinine Clearance > 125 ml/min; Glucose 132 mg/dl (70-99); Potassium 3.9 mmol/L (3.5-5.1); Sodium 141 mmol/L (135-145); Total Bilirubin 1.3 mg/dl (0.2-1.3); Total Protein 5.6 g/dl (6.3-8.2); eGFR > 60.00
[2024-02-19 07:35] VITALS: BP 110/55
[2024-02-19] MEDS: LOW STRENGTH ASPIRIN 81 MG PO (08:00)
[2024-02-19] MEDS: NSS (PRESERVATIVE FREE) 10 ML IV (08:00)
[2024-02-19] MEDS: PROTONIX IV 40 MG IV (08:00)
--- NOTE | 2024-02-19 08:40 | W.PN.HOSP.TC ---
Addendum entered and electronically signed by Kulwinder Cortes MD 02/19/24 09:23:
Patient declined further telemetry. currently seen with PACs. EKG 12leads ordered
Original Note:
Today's Communication/Plan
-
Pending final Cx sensitivity and further plan by GenSx
Assessment / Plan
Assessment / Plan
74yo M with PMhx alcoholic liver cirrhosis, b/l TKA, spinal laminectomy, iron overload, ASCVD, PAD s/p stent, Hx of symptomatic cholelithiasis, s/p laparoscopic rodriguez in October 2023, the FRANKLIN drain 2/2 biloma on 01/30/24 and ERCP with biliary stent on
02/16/24 came with chills, fevers and weakness started after the procedure. CT showed perforated diverticulum with possible periduodenal abscess that GenSx managing conservatively
A/P:
#Sepsis (fever, weakness) 2/2 contained duodenal diverticular perforation with bacteremia
NPO
GenSx eval - conservative mgmt, advance diet, Abx, maintain drain for at least 1 week
Zosyn
Bcx Klebsiela Oxitoca pending sensitivities
Repeated Bcx NTD
#Hx of bile leak s/p cholecystectomy
with FRANKLIN norman - properly positioned as per CT
s/p ERCP with biliary stent - properly positioned as per ERCP
GI consult
follow LFT
#Liver cirrhosis with portal HTN
#GERD
#PAD s/p stent
#ASCVD
#Hx of spinal fusion and laminectomy
#DJD
#BPH
Watch for urinary retention
cont home meds and established follow up
#R buttocks ingrown hair, with draining folliculitis
already on Abx
monitor for resolution
DVT ppx Hep
Full code
I have spent at least 39min reviewing
Anticipated Discharge: 24 - 48 hours
Subjective/Interval History
-
Date of Service: February 19, 2024
Objective Data
-
Labs:
Laboratory Results
02/19/24
05:47
WBC 8.6
Hgb 12.6 L
Hct 36.4 L
Plt Count 189
Sodium 141
Potassium 3.9
Chloride 107
Carbon Dioxide 22
BUN 6 L
Creatinine 0.6 L
Glucose 132 H
Calcium 8.3 L
Total Bilirubin 1.3
AST 19
ALT 13
Alkaline Phosphatase 64
Vital Signs:
Vital Signs
Temp Pulse Resp BP Pulse Ox
97.8 F 54 16 110/55 96
02/19/24 07:35 02/19/24 07:35 02/19/24 07:35 02/19/24 07:35 02/19/24 07:35
I&O
02/18/24 02/19/24 02/20/24
06:59 06:59 06:59
Intake Total 1100 / 1100 3900 / 3900
Output Total 0 / 0 1725 / 1725
Balance 1100 / 1100 2175 / 2175
Review of Systems
-
History Source: Patient
All other systems: Reviewed and negative
Physical Exam
-
General: No Apparent Distress
HEENT: Normocephalic
Respiratory: Clear to Auscultation
Cardiac: Irregular Rhythm
GI: Soft, Nontender and Nondistended
Genito-urinary: No Costovertebral Tender
Musculoskeletal: No Clubbing, No Cyanosis and No Edema
Skin: Warm
Neuro: Awake, Alert, Oriented and AO x 3
Psych: Calm
--- NOTE | 2024-02-19 12:20 | W.PN.GS2 ---
Addendum entered and electronically signed by Edson Monroy MD 02/19/24 13:41:
I saw and examined the patient.
The BUSINESS DIRECTOR's note was reviewed and I agree with the note.
Comment:
No overnight events. Pain improved, controlled. Passing flatus, no BMs.
AFVSS, ABD soft, mildly distended, not tympanitic, minimally tender in the RUQ, no rebound or guarding; RUQ drain�minimal light bilious
WBC 8.6 from 10.6, Hb 12.6 from 12.6, T. bili 1.3 from 1.4
Continue IR drain to gravity
Continue clears; will go slow due to microperforation
Continue DVT PPx
Continue antibiotics with IV Zosyn
Continue pain control with Tylenol and Dilaudid as needed
Appreciate GI and hospitalist
Original Note:
Today's Communication / Plan
-
Continue drain
Continue clears
Assessment / Plan
-
Assessment/plan: 74-year-old male with known history of delayed cystic duct stump leak and biloma status post IR drainage.
Postprocedural day 3 status post ERCP and stent placement for management of cystic duct stump leak. Challenging ERCP due to duodenal diverticulum. Presenting with bacteremia and possible contained microperforation at duodenal diverticulum but no
free perforation, remote free air, no peritonitis is clinically stable.
Given clinical stability and no radiographic evidence of free perforation recommend continued medical management
AFVSS
Leukocytosis resolved
Tolerating clears
minimal outputs now present from IR drain as expected given recent stent placement
Continue on clears only
Anticipate UGI study tomorrow if pain continues to improve
Continue ABX
Follow labs
Must maintain IR drain for at least another week post ERCP
VTE ppx with sq lovenox
Subjective Data
-
Date of Service: February 19, 2024
Patient seen and examined at bedside with Dr. Monroy. Questions addressed. Pain gradually improving. A little more energy today. Hungry. Tolerating clears without nausea or vomiting.
Objective Data
-
Intake and Output
02/18/24 02/19/24 02/20/24
06:59 06:59 06:59
Intake Total 1100 / 1100 3900 / 3900
Output Total 0 / 0 1725 / 1725
Balance 1100 / 1100 2175 / 2175
Intake:
Oral fluids 0 / 0 900 / 900
Amount of oral supplement(s) 0 / 0
consumed
IV fluids (Total) 1000 / 1000 2700 / 2700
IV piggybacks 100 / 100 300 / 300
Output:
Drain Output (Total) 0 / 0
Right Upper Abdomen Biliary 0 / 0
Urine, Voided 1725 / 1725
Other:
Number of approximated MODERATE 4
amounts of urine
How many times incontinent 1
MODERATE amount urine
Vital Signs
Temp Pulse Resp BP Pulse Ox
97.8 F 54 16 110/55 96
02/19/24 07:35 02/19/24 07:35 02/19/24 07:35 02/19/24 07:35 02/19/24 07:35
Lab Results
02/19/24 05:47
02/19/24 05:47
Calcium 8.3 mg/dl (8.4-10.2) L 02/19/24 05:47
Total Bilirubin 1.3 mg/dl (0.2-1.3) 02/19/24 05:47
Direct Bilirubin 0.3 mg/dl (0.0-0.4) 02/17/24 05:50
AST 19 U/L (17-59) 02/19/24 05:47
ALT 13 U/L (0-50) 02/19/24 05:47
Alkaline Phosphatase 64 U/L (38-126) 02/19/24 05:47
Total Protein 5.6 g/dl (6.3-8.2) L 02/19/24 05:47
Albumin 3.1 g/dl (3.5-5.0) L 02/19/24 05:47
Physical Exam
-
NAD
ABD softly distended, RUQ tenderness, BUSINESS DIRECTOR
Perc drain with minimal bile stained output
[2024-02-19] MEDS: D5/0.9% SODIUM CHLORIDE 1000 IV (12:55)
--- NOTE | 2024-02-19 13:46 | CON.ID ---
Consultation
-
Date/Time Consultation Requested: February 19, 2024 1008
Date/Time Consultation Performed: February 19, 2024 1350
Requesting Provider: Dr. Kulwinder Cortes
Performing Provider: Dr. Elenita Uribe
Reason for Consultation: Antibiotic duration
Chief Complaint / Past History
History of Present Illness
74-year-old male with history of alcohol cirrhosis, iron overload, symptomatic chronic calculus cholecystitis recently underwent laparoscopic cholecystectomy October 2023. January 12 routine hepatic cancer screening abdominal ultrasound showed complex
fluid collection within the gallbladder fossa. January 18 CAT scan of the abdomen and pelvis showed fluid collection 5.7 cm in the fossa. January 29, he underwent IR percutaneous drain placement, culture negative. On February 15 he underwent ERCP
with placement of plastic stent in the common bile duct for the bile leak. Postprocedure he developed worsening abdominal pain and shaking chills. He presented to the ER February 16. CAT scan of the abdomen pelvis showed perforated duodenum with
contained abscess. Medical management advised. Patient is currently on Zosyn. Admission blood culture positive for Klebsiella. He is feeling much better today. No further chills. Abdominal pain is minimal. No diarrhea. He is on the liquid
diet.
Past History
Additional Past Medical History:
Hypertension
Dyslipidemia
Alcohol cirrhosis with ascites
GERD
Iron overload, therapeutic phlebotomies
history of PE
PAD status post RLE popliteal stent
History of cholecystectomy 10/2023
Lumbar laminectomy/lumbar fusion
Bilateral total knee replacement
umbilical hernia repair
MOHs skin cancer
Allergy History:
No Known Allergies Allergy (Verified 02/16/24 07:42)
Medications Reviewed: Yes
Current Antibiotics:
Zosyn day #4
Social History
Tobacco: Non-Smoker
Alcohol: Former
Drug: None
Personal:
Family History
Family History: Not Pertinent
Review of Systems
Review of Systems
HEENT: Negative Sinus Problems, Headache or Pharyngitis
Cardiovascular: Negative Chest Pain
Respiratory: Negative Dyspnea or Cough
Gasteroenterology: Negative Nausea, Vomiting or Diarrhea
Genital / Urological: Negative Dysuria or Flank Pain
Skin / Hair / Nails: Negative Rash
Neurological: Negative Dizziness
All systems: All other systems were reviewed and were negative
Vital Signs
Temp Pulse Resp BP Pulse Ox
97.8 F 54 16 110/55 96
02/19/24 07:35 02/19/24 07:35 02/19/24 07:35 02/19/24 07:35 02/19/24 07:35
Physical Exam
Physical Exam
Constitutional: No Acute Distress and Comfortable
Eyes: No Conjunctival Hemorrhage and Sclera Anicteric
Cardiovascular: Regular Rate and S1/S2
Pulmonary: Clear
Gastrointestinal: Soft, Non Tender, Non Distended, Decreased Bowel Sounds and Other (Perc rodriguez drain with scant bile.)
Extremities: Negative Edema
Neurological: AO x 3
Lab / Diagnostic Study Results
02/19/24 05:47
02/19/24 05:47
Abs Immat Gran (auto) 0.0 10^3/uL (0-0.05) 02/19/24 05:47
Absolute Neuts (auto) 6.5 10^3/uL (1.4-6.5) 02/19/24 05:47
Absolute Lymphs (auto) 1.1 10^3/uL (1.2-3.4) L 02/19/24 05:47
Absolute Monos (auto) 0.6 10^3/uL (0.1-0.6) 02/19/24 05:47
Absolute Basos (auto) 0.1 10^3/uL (0-0.2) 02/19/24 05:47
Immature Gran % 0.4 % (0-0.5) 02/19/24 05:47
Neutrophils % 75.9 % (42.2-75.2) H 02/19/24 05:47
Lymphocytes % 12.4 % (20.5-51.1) L 02/19/24 05:47
Monocytes % 7.2 % (1.7-9.3) 02/19/24 05:47
Eosinophils % 3.5 % (0-6) 02/19/24 05:47
Basophils % 0.6 % (0-2) 02/19/24 05:47
PT 15.2 Sec (11.4-14.6) H 02/18/24 07:32
INR 1.17 02/18/24 07:32
Lactic Acid 1.2 mmol/L (0.7-2.0) 02/16/24 22:27
Microbiology Results
Micro:
02/16/24 22:27 Blood Culture - Preliminary
Blood/Venous Klebsiella oxytoca
Gram Stain - Preliminary
02/16/24 22:30 Blood Culture - Preliminary
Blood/Venous No Growth in 48 hours- Final report to follow
02/17/24 14:29 Blood Culture - Preliminary
Blood/Venous No Growth in 24 hours- Final report to follow
02/17/24 13:54 Blood Culture - Preliminary
Blood/Venous No Growth in 24 hours- Final report to follow
02/16/24 22:27 Influenza Types A & B (LOVE) - Final
Nasal Swab Negative for Influenza A & B, NAAT
Negative results must be combined with clinical observations
and patient history.
Nucleic Acid Amplification test (NAAT)performed on the
[employer] platform.
Blood Culture Preliminary 02/19/24-1002
Positive for Klebsiella oxytoca by [employer]
Nucleic Acid Methodology.
Organism 1 Klebsiella oxytoca
1. Klebsiella oxytoca
M.I.C. RX
--------- ---
Amoxicillin/Potas. Clavulanate <=8/4 S
Ampicillin >16 R
Ampicillin/Sulbactam 8/4 S
Aztreonam <=4 S
Cefazolin 8 R
Cefepime <=2 S
Ceftazidime <=1 S
Ceftriaxone <=1 S
Ertapenem <=0.5 S
Ciprofloxacin <=0.25 S
Gentamicin <=2 S
Meropenem <=1 S
Piperacillin/Tazobactam <=8 S
Tetracycline <=4 S
Tobramycin <=2 S
Trimethoprim/Sulfamethoxazole <=2/38 S
02/17/24 CT a/p: ACUTE PERFORATED DUODENAL DIVERTICULUM along the medial wall of the 2nd portion of the duodenum with moderate surrounding edema and inflammation extending into the pancreatic head. Small 1.6 cm periduodenal/peridiverticular abscess.
Plastic biliary stent in place without evidence for obstruction. Percutaneous drain in the right subhepatic space at the site of previous cholecystectomy.
01/19/24 CT a/p: Thin-walled ovoid fluid collection in the gallbladder fossa measuring up to 5.7 cm. No surrounding inflammation. Findings likely represent a postoperative seroma or biloma.
Assessment / Plan
# Perforated duodenum with contained 1.6cm abscess
# Klebsiella bacteremia, GI source
# Post lap rodriguez bile leak s/p ERCP, CBD stent placement 02/16/24.
-UGI tomorrow
- Repeat blood cx's neg.
-Narrow Zosyn to Unasyn
- When able to take po transition to Augmentin 875mg po bid through 02/29/24.
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
Hypertension
Dyslipidemia
Alcohol cirrhosis with ascites
GERD
Iron overload, therapeutic phlebotomies
history of PE
PAD status post RLE popliteal stent
History of cholecystectomy 10/2023
Lumbar laminectomy/lumbar fusion
Bilateral total knee replacement
umbilical hernia repair
MOHs skin cancer
[2024-02-19 15:30] VITALS: BP 132/68
[2024-02-19] MEDS: LOVENOX 40 MG SC (17:24)
[2024-02-19] MEDS: UNASYN IV (17:24)
[2024-02-19] MEDS: CORGARD 40 MG PO (21:42)
[2024-02-19 23:05] VITALS: BP 123/68
[2024-02-20] MEDS: UNASYN IV ×5 (00:44→23:45)
[2024-02-20 05:50] VITALS: BMI 30.7
--- NOTE | 2024-02-20 07:18 | W.PN.HOSP.TC ---
Today's Communication/Plan
-
Continue antibiotics. UGI today.
Assessment / Plan
Assessment / Plan
Physical exam:
General: Well Developed, Well Nourished and No Apparent Distress
HEENT: Normocephalic, Atraumatic and Moist Mucous Membranes
Respiratory: Clear to Auscultation; Negative Wheezes, Rales or Rhonchi
Cardiac: Regular Rhythm and S1/S2
GI: Soft, Nontender and Nondistended
Musculoskeletal: No Clubbing, No Cyanosis and No Edema
Neuro: Awake, Alert and Oriented
Psych: Calm
A/P:
74yo M with PMhx alcoholic liver cirrhosis, b/l TKA, spinal laminectomy, iron overload, ASCVD, PAD s/p stent, Hx of symptomatic cholelithiasis, s/p laparoscopic rodriguez in October 2023, the FRANKLIN drain 2/2 biloma on 01/30/24 and ERCP with biliary stent on
02/16/24 came with chills, fevers and weakness started after the procedure. CT showed perforated diverticulum with possible periduodenal abscess that GenSx managing conservatively
A/P:
#Sepsis (fever, weakness) 2/2 contained duodenal diverticular perforation with bacteremia
NPO
GenSx eval - conservative mgmt, advance diet as tolerated but n.p.o. due to procedure, Abx, maintain drain for at least 1 week
Zosyn
Bcx Klebsiela Oxitoca on 02/15
Repeated Bcx NTD 02/16
Plan for upper GI series today
#Hx of bile leak s/p cholecystectomy
with FRANKLIN norman - properly positioned as per CT
s/p ERCP with biliary stent - properly positioned as per ERCP
GI consult
follow LFT
#Liver cirrhosis with portal HTN
#GERD
#PAD s/p stent
#ASCVD
#Hx of spinal fusion and laminectomy
#DJD
#BPH
Watch for urinary retention
cont home meds and established follow up
#R buttocks ingrown hair, with draining folliculitis
already on Abx
monitor for resolution
DVT ppx Hep
Full code
Anticipated Discharge: Within 24 hours
Subjective/Interval History
-
Date of Service: February 20, 2024
Patient denies abdominal pain nausea vomiting today. Afebrile
Objective Data
-
Labs:
Laboratory Results
02/20/24
07:13
WBC Pending
Hgb Pending
Hct Pending
Plt Count Pending
Sodium Pending
Potassium Pending
Chloride Pending
Carbon Dioxide Pending
BUN Pending
Creatinine Pending
Glucose Pending
Calcium Pending
Total Bilirubin Pending
AST Pending
ALT Pending
Alkaline Phosphatase Pending
Vital Signs:
Vital Signs
Temp Pulse Resp BP Pulse Ox
97.4 F 59 16 123/68 98
02/19/24 23:05 02/19/24 23:05 02/19/24 23:05 02/19/24 23:05 02/19/24 23:05
I&O
02/19/24 02/20/24 02/21/24
06:59 06:59 06:59
Intake Total 3900 / 3900 2130 / 2130
Output Total 1725 / 1725 625 / 625
Balance 2175 / 2175 1505 / 1505
[2024-02-20 07:33] LABS: % Basophils 0.6 % (0-2); % Eosinophils 4.5 % (0-6); % Immature Granulocytes 0.4 % (0-0.5); % Lymphocytes 10.6 % (20.5-51.1); % Monocytes 6.9 % (1.7-9.3); Absolute Basophils 0.1 10^3/uL (0-0.2); Absolute Eosinophils 0.4 10^3/uL (0-0.7); Absolute Lymphocytes 0.8 10^3/uL (1.2-3.4); Absolute Monocytes 0.6 10^3/uL (0.1-0.6); Absolute Neutrophils 6.1 10^3/uL (1.4-6.5); Hematocrit 39.4 % (39.0-52.0); Hemoglobin 13.3 g/dL (13.0-18.0); Mean Corp Hgb Conc. 33.8 g/dL (33.0-37.0); Mean Corpuscular Hgb 31.4 pg (27.0-31.0); Mean Corpuscular Volume 92.9 fL (80.0-94.0); Mean Platelet Volume 8.8 fL (7.4-10.4); Nucleated Red Blood Cells % 0 % (-); Platelet Count 189 10^3/uL (130-400); Red Blood Cell Count 4.24 10^6/uL (4.70-6.10); Red Cell Dist. Width 12.3 % (11.5-14.5); White Blood Cell Count 7.9 10^3/uL (4.8-10.8)
[2024-02-20 07:35] VITALS: BP 120/69
[2024-02-20] MEDS: PROTONIX IV 40 MG IV (07:59)
[2024-02-20] MEDS: NSS (PRESERVATIVE FREE) 10 ML IV (07:59)
[2024-02-20] MEDS: LOW STRENGTH ASPIRIN 81 MG PO (07:59)
[2024-02-20 08:01] LABS: ALT (SGPT) 15 U/L (0-50); AST (SGOT) 19 U/L (17-59); Albumin 3.1 g/dl (3.5-5.0); Alkaline Phosphatase 67 U/L (38-126); Blood Urea Nitrogen 4 mg/dl (9-20); Calcium 8.6 mg/dl (8.4-10.2); Carbon Dioxide 26 mmol/L (22-30); Chloride 105 mmol/L (98-107); Estimated Creatinine Clearance > 125 ml/min; Glucose 112 mg/dl (70-99); Potassium 4.1 mmol/L (3.5-5.1); Sodium 141 mmol/L (135-145); Total Bilirubin 1.1 mg/dl (0.2-1.3); Total Protein 5.7 g/dl (6.3-8.2); eGFR > 60.00
--- NOTE | 2024-02-20 09:35 | W.PN.ID1 ---
Date of Service
Date of Service: February 20, 2024
Today's Communication
When able to take po transition to Augmentin 875mg po bid through 02/29/24.
Assessment / Plan
# Perforated duodenum with contained 1.6cm abscess
# Klebsiella bacteremia, GI source
# Post-lap rodriguez c/b bile leak s/p ERCP, CBD stent placement 02/16/24.
-UGI today
- Repeat blood cx's neg.
-Continue Unasyn
- When able to take po transition to Augmentin 875mg po bid through 02/29/24.
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
Hypertension
Dyslipidemia
Alcohol cirrhosis with ascites
GERD
Iron overload, therapeutic phlebotomies
history of PE
PAD status post RLE popliteal stent
History of cholecystectomy 10/2023
Lumbar laminectomy/lumbar fusion
Bilateral total knee replacement
umbilical hernia repair
MOHs skin cancer
Chief Complaint
-: Bacteremia
Subjective / Review of Systems
feels well today.
Vital Signs / Physical Exam
Vital Signs
Vital Signs
Temp Pulse Resp BP Pulse Ox
97.8 F 57 16 120/69 98
02/20/24 07:35 02/20/24 07:35 02/20/24 07:35 02/20/24 07:35 02/20/24 07:35
Physical Exam
Constitutional: No Acute Distress
Cardiovascular: Regular Rate and S1/S2
Pulmonary: Clear
Gastrointestinal: Non Tender, Non Distended, Normal Bowel Sounds and Other (perc rodriguez tube - empty)
Extremities: Negative Edema
Neurological: AO x 3
Objective Data
Lab Data
Lab Results
02/20/24 07:13
02/20/24 07:13
PT 15.2 Sec (11.4-14.6) H 02/18/24 07:32
INR 1.17 02/18/24 07:32
Estimated Creat Clear > 125 ml/min 02/20/24 07:13
Lactic Acid 1.2 mmol/L (0.7-2.0) 02/16/24 22:27
Total Bilirubin 1.1 mg/dl (0.2-1.3) 02/20/24 07:13
AST 19 U/L (17-59) 02/20/24 07:13
ALT 15 U/L (0-50) 02/20/24 07:13
Alkaline Phosphatase 67 U/L (38-126) 02/20/24 07:13
Most recent labs reviewed.
Micro Results:
02/16/24 22:30 Blood Culture - Preliminary
Blood/Venous No Growth in 72 hours- Final report to follow
02/17/24 14:29 Blood Culture - Preliminary
Blood/Venous No Growth in 48 hours- Final report to follow
02/17/24 13:54 Blood Culture - Preliminary
Blood/Venous No Growth in 48 hours- Final report to follow
02/16/24 22:27 Blood Culture - Preliminary
Blood/Venous Klebsiella oxytoca
Gram Stain - Preliminary
02/16/24 22:27 Influenza Types A & B (LOVE) - Final
Nasal Swab Negative for Influenza A & B, NAAT
Negative results must be combined with clinical observations
and patient history.
Nucleic Acid Amplification test (NAAT)performed on the
[employer] platform.
Blood Culture Preliminary 02/19/24-1002
Positive for Klebsiella oxytoca by [employer]
Nucleic Acid Methodology.
Organism 1 Klebsiella oxytoca
1. Klebsiella oxytoca
M.I.C. RX
--------- ---
Amoxicillin/Potas. Clavulanate <=8/4 S
Ampicillin >16 R
Ampicillin/Sulbactam 8/4 S
Aztreonam <=4 S
Cefazolin 8 R
Cefepime <=2 S
Ceftazidime <=1 S
Ceftriaxone <=1 S
Ertapenem <=0.5 S
Ciprofloxacin <=0.25 S
Gentamicin <=2 S
Meropenem <=1 S
Piperacillin/Tazobactam <=8 S
Tetracycline <=4 S
Tobramycin <=2 S
Trimethoprim/Sulfamethoxazole <=2/38 S
02/17/24 CT a/p: ACUTE PERFORATED DUODENAL DIVERTICULUM along the medial wall of the 2nd portion of the duodenum with moderate surrounding edema and inflammation extending into the pancreatic head. Small 1.6 cm periduodenal/peridiverticular abscess.
Plastic biliary stent in place without evidence for obstruction. Percutaneous drain in the right subhepatic space at the site of previous cholecystectomy.
01/19/24 CT a/p: Thin-walled ovoid fluid collection in the gallbladder fossa measuring up to 5.7 cm. No surrounding inflammation. Findings likely represent a postoperative seroma or biloma.
--- NOTE | 2024-02-20 11:33 | W.PN.GS2 ---
Addendum entered and electronically signed by Figueroa Hill MD 02/20/24 15:58:
I saw and examined the patient independently.
The Emergency Services Director's note was reviewed and I agree with the note, assessment and plan except where noted below.
Comment: This is a 74-year-old male with known history of cirrhosis status post complicated laparoscopic cholecystectomy in October that was complicated by development of a biloma now status post IR drain on 01/29 and more recently ERCP on 02/15 with
confirmation of a cystic duct stump leak now managed with a stent. The patient then read presented to the hospital on 02/16 with a abdominal pain and found to have contained perforated duodenal diverticulum on CT scan without oral contrast. This
was reconfirmed on an upper GI today. Clinically the patient is improving well.
Will continue nonoperative management of the perforated diverticulum.
Okay for full liquid diet, expect to be on this for about a week.
Continue antibiotics, appreciate ID recommendations.
PPI.
Continue trending CMP and CBC, check lipase in the morning.
Will likely repeat CT scan with oral contrast in about a week.
Three-way stopcock added to his IR drain, flushes ordered. He will need drain care teaching for home.
General surgery will continue to follow. Patient and agreeable to plan of care above.
Original Note:
Today's Communication / Plan
-
UGI
Assessment / Plan
-
Assessment/plan: 74-year-old male with known history of delayed cystic duct stump leak and biloma status post IR drainage.
Postprocedural day 4 status post ERCP and stent placement for management of cystic duct stump leak. Challenging ERCP due to duodenal diverticulum.
Presenting with bacteremia and possible contained microperforation at duodenal diverticulum but no free perforation, remote free air, no peritonitis is clinically stable.
Given clinical stability and no radiographic evidence of free perforation will continue with medical management
AFVSS
Leukocytosis resolved
Tolerating clears
minimal outputs now present from IR drain as expected given recent stent placement
Plan:
NPO for testing
UGI in radiology today
Continue ABX
Follow labs
Must maintain IR drain for at least another week post ERCP, will add a daily flush to ensure drain patency
VTE ppx with sq lovenox
Subjective Data
-
Date of Service: February 20, 2024
Patient seen and examined at bedside with Dr. Hill. Reports he continues to feel better. Denies pain. Denies n/v. No chills.
Objective Data
-
Intake and Output
02/19/24 02/20/24 02/21/24
06:59 06:59 06:59
Intake Total 3900 / 3900 2130 / 2130
Output Total 1725 / 1725 625 / 625
Balance 2175 / 2175 1505 / 1505
Intake:
Oral fluids 900 / 900 2130 / 2130
IV fluids (Total) 2700 / 2700
IV piggybacks 300 / 300
Output:
Urine, Voided 1725 / 1725 625 / 625
Other:
Number of approximated MODERATE 4 6
amounts of urine
Vital Signs
Temp Pulse Resp BP Pulse Ox
97.8 F 57 16 120/69 98
02/20/24 07:35 02/20/24 07:35 02/20/24 07:35 02/20/24 07:35 02/20/24 07:35
Lab Results
02/20/24 07:13
02/20/24 07:13
Calcium 8.6 mg/dl (8.4-10.2) 02/20/24 07:13
Total Bilirubin 1.1 mg/dl (0.2-1.3) 02/20/24 07:13
Direct Bilirubin 0.3 mg/dl (0.0-0.4) 02/17/24 05:50
AST 19 U/L (17-59) 02/20/24 07:13
ALT 15 U/L (0-50) 02/20/24 07:13
Alkaline Phosphatase 67 U/L (38-126) 02/20/24 07:13
Total Protein 5.7 g/dl (6.3-8.2) L 02/20/24 07:13
Albumin 3.1 g/dl (3.5-5.0) L 02/20/24 07:13
Physical Exam
-
NAD
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
Perc drain with minimal bile stained output
[2024-02-20 11:55] VITALS: BP 107/59
--- NOTE | 2024-02-20 12:26 | CM ---
CM met with pt and his fiance/Jeanette
They reside at her residence at [address] [place]
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
Pt is independent with his ADLs, SPC for use if needed, drives+
Pt has a drain and has been self managing at home independently for the past few years
Denies financial insecurities
Rx coverage through secondary plan, [employer]
Son/Yoseph is POA and primary contact
PCP- Surinder Cornelius
Rx- Екатерина [place]
Pt notes if daily drain flush on dc, he will be able to to self manage
Pt had ERCP on 02/05
ID following with PO recs at this time
Plan for UGI today
Discharge Disposition- home, no needs anticipated
--- NOTE | 2024-02-20 13:08 | W.PN.GI.CBS2 ---
Addendum entered and electronically signed by Gin St DO 02/24/24 14:48:
CDI request:
the microperforation/abscess occurred around the 2nd portion diverticulum and was potentially a possible complication of the ERCP.
Infectious complications are more common in cirrhotics.
Original Note:
Today's Communication / Plan
-
-- await UGI series
Assessment / Plan
-
Pt is a 74-year-old male with past medical history of alcoholic cirrhosis with history of remote varices and ascites with last paracentesis in 2014 with history of iron overload, last iron studies within normal limits. He has followed up with
[facility] as he is C2 82Y heterozygous. Her recommendation is to have donation to the ICU [facility] once a year at this point Which he has not recently needed. . He quit drinking alcohol completely in September and has been followed in GI office for chronic
liver disease. . He is continuing on nadolol 40 mg daily as well as spironolactone 100 mg daily, He had a cholecystectomy with Dr. Gabriel in October with ioc, complex case given portal htn and fibrotic tissue obscuring cystic triangle . On routine
ultrasound for HCC surveillance and some RUQ pain it was noted that he had a biloma within the gallbladder fossa. This was confirmed on CT of the abdomen and pelvis. This is measuring up to 5.7 cm. Pt was seen by IR for drainage and with continue
pain saw Dr. Gabriel last week with recommended.GI evaluation for internalizing drain and stenting. He was admitted last week but no ERCP availability and patient was set up for ERCP and stenting 02/15. He completed ERCP with noted papilla in
diverticulum, bile leak found, biliary sphincterotomy completed and stent placed in CBD. On return home noted feeling out of it with shaking chills. On return noted with WBC 16,200 without fever. LFT's with bili 1.7 otherwise normal with normal
lipase. Ct on admission with concern for acute perforated duodenal diverticulum with small periduodenal diverticular abscess. Stent in place without obstruction.
-shaking chills/leukocytosis post ERCP
-biloma s/p IR drainage with persistent leak s/p ERCP with stent 02/15
-CT with concern for duodenal perf and small abscess with stent in good placement
-leukocytosis
-s/p complicated rodriguez October 2023
-abdominal distention/hx ascites(no ascites on US 02/09)
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
- iron overload with [id number] heterozygote with therapeutic phlebotomy
-PE
-PAD
- colon polyps
02/20/24 PLAN:
s/p ERCP 02/15 for stent placement for bile leak - bilirubin is now normalized
CT as noted with concern for Small contained micro duodenal perf and small abscess with stent in good placement
Clinically improved today with less bloating, less epigastric discomfort. His discomfort is mainly around his percutaneous drain
Per surgery will to manage the biliary drain
. Upper GI series today to look for any persistent microperf
Continue antibiotics in the setting of small abscess on imaging with leukocytosis and contained microperforation
Blood cultures from 02/16/2024 1 negative and 1 with Klebsiella oxytoca; now improving
pt has been has had ETOH abstinence several years since cirrhosis diagnosis
OP follows with Dr. Lopez and Светлана D[place] for chronic liver disease
Pt will need 4 week follow up with Dr. Brito office visit for stent management - office aware and called him once
-
Subjective
Subjective
Date of Service: February 20, 2024
patient is improving. still some bloating. tolerating clears well. c/o drain discomfort
Objective
Data Reviewed
Laboratory Data:
Laboratory Results
02/20/24 07:13
02/20/24 07:13
Laboratory Results
PT 15.2 Sec (11.4-14.6) H 02/18/24 07:32
INR 1.17 02/18/24 07:32
Total Bilirubin 1.1 mg/dl (0.2-1.3) 02/20/24 07:13
AST 19 U/L (17-59) 02/20/24 07:13
ALT 15 U/L (0-50) 02/20/24 07:13
Alkaline Phosphatase 67 U/L (38-126) 02/20/24 07:13
Lipase 143 U/L (23-300) 02/16/24 22:59
Vital Signs and I&O:
Vital Signs
Temp Pulse Resp BP Pulse Ox
98.4 F 63 16 107/59 98
02/20/24 11:55 02/20/24 11:55 02/20/24 11:55 02/20/24 11:55 02/20/24 11:55
I&O
02/19/24 02/20/24 02/21/24
06:59 06:59 06:59
Intake Total 3900 / 3900 2130 / 2130
Output Total 1725 / 1725 625 / 625
Balance 2175 / 2175 1505 / 1505
Physical Exam
Physical Exam
HEENT: Anicteric
Pulmonary: Clear
GI: Soft and Non Tender (improved tenderness, very mild)
Extremities: No Edema
Neuro: Non Focal
[2024-02-20 15:30] VITALS: BP 118/67
[2024-02-20] MEDS: LOVENOX 40 MG SC (18:00)
[2024-02-20 19:35] VITALS: BP 132/59
[2024-02-20] MEDS: CORGARD 40 MG PO (22:04)
[2024-02-20 23:45] VITALS: BP 116/64
[2024-02-21] MEDS: UNASYN IV ×2 (05:59→11:19)
[2024-02-21 06:00] VITALS: BMI 30.5
[2024-02-21 06:44] LABS: % Basophils 0.7 % (0-2); % Eosinophils 5.5 % (0-6); % Immature Granulocytes 0.9 % (0-0.5); % Lymphocytes 11.7 % (20.5-51.1); % Monocytes 7.6 % (1.7-9.3); % Neutrophils 73.6 % (42.2-75.2); Absolute Basophils 0.1 10^3/uL (0-0.2); Absolute Eosinophils 0.5 10^3/uL (0-0.7); Absolute Immature Granulocytes 0.1 10^3/uL (0-0.05); Absolute Monocytes 0.6 10^3/uL (0.1-0.6); Absolute Neutrophils 6.1 10^3/uL (1.4-6.5); Hematocrit 37.6 % (39.0-52.0); Hemoglobin 12.7 g/dL (13.0-18.0); Mean Corp Hgb Conc. 33.8 g/dL (33.0-37.0); Mean Corpuscular Hgb 30.8 pg (27.0-31.0); Mean Platelet Volume 8.9 fL (7.4-10.4); Nucleated Red Blood Cells % 0 % (-); Platelet Count 201 10^3/uL (130-400); Red Blood Cell Count 4.13 10^6/uL (4.70-6.10); Red Cell Dist. Width 12.2 % (11.5-14.5); White Blood Cell Count 8.2 10^3/uL (4.8-10.8)
[2024-02-21 07:14] LABS: ALT (SGPT) 16 U/L (0-50); AST (SGOT) 20 U/L (17-59); Albumin 3.1 g/dl (3.5-5.0); Alkaline Phosphatase 68 U/L (38-126); Blood Urea Nitrogen 5 mg/dl (9-20); Calcium 8.6 mg/dl (8.4-10.2); Carbon Dioxide 27 mmol/L (22-30); Chloride 105 mmol/L (98-107); Estimated Creatinine Clearance > 125 ml/min; Glucose 109 mg/dl (70-99); Lipase 48 U/L (23-300); Potassium 3.9 mmol/L (3.5-5.1); Sodium 140 mmol/L (135-145); Total Bilirubin 0.8 mg/dl (0.2-1.3); Total Protein 5.6 g/dl (6.3-8.2); eGFR > 60.00
[2024-02-21 08:00] VITALS: BP 119/65
[2024-02-21] MEDS: LOW STRENGTH ASPIRIN 81 MG PO (08:09)
[2024-02-21] MEDS: NSS (PRESERVATIVE FREE) 10 ML IV (08:09)
[2024-02-21] MEDS: PROTONIX IV 40 MG IV (08:10)
--- NOTE | 2024-02-21 08:26 | W.PN.GS2 ---
Today's Communication / Plan
-
-- Soft food diet
-- Continue ABX
-- Must maintain IR drain for at least another week post ERCP, will add a daily flush to ensure drain patency
-- Outpatient follow-up with [facility] after Le[facility] (2 weeks)
Assessment / Plan
-
Assessment/plan: 74-year-old male with known history of delayed cystic duct stump leak and biloma status post IR drainage.
Postprocedural day 5 status post ERCP and stent placement for management of cystic duct stump leak. Challenging ERCP due to duodenal diverticulum.
Presenting with bacteremia and possible contained microperforation at duodenal diverticulum but no free perforation, remote free air, no peritonitis is clinically stable.
Given clinical stability and no radiographic evidence of free perforation will continue with medical management
AFVSS
Leukocytosis resolved
Tolerating clears
Minimal outputs now present from IR drain as expected given recent stent placement
UGI reviewed and no clear evidence of a leak, contrast appears to fill diverticulum, no stricture or obstruction
Plan:
-- Soft food diet
-- Continue ABX
-- Follow labs
-- Must maintain IR drain for at least another week post ERCP, will add a daily flush to ensure drain patency
-- VTE ppx with SQ Lovenox
-- Outpatient follow-up with [facility] Castaneda (2 weeks)
Subjective Data
-
Date of Service: February 21, 2024
No complaints. Denies worsening pain. No nausea or vomiting. No fevers.
Objective Data
-
Intake and Output
02/20/24 02/21/24 02/22/24
06:59 06:59 06:59
Intake Total 2129 / 2129 910 / 910 480 / 480
Output Total 625 / 625 0 / 0
Balance 1505 / 1505 910 / 910 480 / 480
Intake:
Oral fluids 2129 900 / 900 240 / 240
IV piggybacks 240 / 240
Amount instilled into Drain (
Total)
Right Upper Abdomen Biliary
Output:
Drain Output (Total) 0 / 0
Right Upper Abdomen Biliary 0 / 0
Urine, Voided 625 / 625
Other:
Number of approximated MODERATE 6 5 3
amounts of urine
Vital Signs
Temp Pulse Resp BP Pulse Ox
97.6 F 54 14 119/65 98
02/21/24 08:00 02/21/24 08:00 02/21/24 08:00 02/21/24 08:00 02/21/24 08:00
Lab Results
02/21/24 06:32
02/21/24 06:32
Calcium 8.6 mg/dl (8.4-10.2) 02/21/24 06:32
Total Bilirubin 0.8 mg/dl (0.2-1.3) 02/21/24 06:32
Direct Bilirubin 0.3 mg/dl (0.0-0.4) 02/17/24 05:50
AST 20 U/L (17-59) 02/21/24 06:32
ALT 16 U/L (0-50) 02/21/24 06:32
Alkaline Phosphatase 68 U/L (38-126) 02/21/24 06:32
Total Protein 5.6 g/dl (6.3-8.2) L 02/21/24 06:32
Albumin 3.1 g/dl (3.5-5.0) L 02/21/24 06:32
Physical Exam
-
Gen: NAD
Abd: soft, NT, ND, non-peritoneal, incisions well healed, IR drain bilious
--- NOTE | 2024-02-21 08:39 | W.PN.HOSP.TC ---
Today's Communication/Plan
-
Discharge planning today
Assessment / Plan
Assessment / Plan
Physical exam:
General: Well Developed, Well Nourished and No Apparent Distress
HEENT: Normocephalic, Atraumatic and Moist Mucous Membranes
Respiratory: Clear to Auscultation; Negative Wheezes, Rales or Rhonchi
Cardiac: Regular Rhythm and S1/S2
GI: Soft, Nontender and Nondistended
Musculoskeletal: No Clubbing, No Cyanosis and No Edema
Neuro: Awake, Alert and Oriented
Psych: Calm
A/P:
74yo M with PMhx alcoholic liver cirrhosis, b/l TKA, spinal laminectomy, iron overload, ASCVD, PAD s/p stent, Hx of symptomatic cholelithiasis, s/p laparoscopic rodriguez in October 2023, the FRANKLIN drain 2/2 biloma on 01/30/24 and ERCP with biliary stent on
02/16/24 came with chills, fevers and weakness started after the procedure. CT showed perforated diverticulum with possible periduodenal abscess that GenSx managing conservatively
A/P:
#Sepsis (fever, weakness) 2/2 contained duodenal diverticular perforation with bacteremia
NPO
GenSx eval - conservative mgmt, advance diet as tolerated but n.p.o. due to procedure, Abx, maintain drain for at least 1 week
Zosyn
Bcx Klebsiela Oxitoca on 02/15
Repeated Bcx NTD 02/16
Upper GI series unremarkable
Discussed with surgery and he is cleared for discharge today
#Hx of bile leak s/p cholecystectomy
with FRANKLIN norman - properly positioned as per CT
s/p ERCP with biliary stent - properly positioned as per ERCP
GI consult
follow LFT
#Liver cirrhosis with portal HTN
#GERD
#PAD s/p stent
#ASCVD
#Hx of spinal fusion and laminectomy
#DJD
#BPH
Watch for urinary retention
cont home meds and established follow up
#R buttocks ingrown hair, with draining folliculitis
already on Abx
monitor for resolution
DVT ppx Hep
Full code
Anticipated Discharge: Today
Subjective/Interval History
-
Date of Service: February 21, 2024
No new complaints
Objective Data
-
Labs:
Laboratory Results
02/21/24
06:32
WBC 8.2
Hgb 12.7 L
Hct 37.6 L
Plt Count 201
Sodium 140
Potassium 3.9
Chloride 105
Carbon Dioxide 27
BUN 5 L
Creatinine 0.6 L
Glucose 109 H
Calcium 8.6
Total Bilirubin 0.8
AST 20
ALT 16
Alkaline Phosphatase 68
Vital Signs:
Vital Signs
Temp Pulse Resp BP Pulse Ox
97.6 F 54 14 119/65 98
02/21/24 08:00 02/21/24 08:00 02/21/24 08:00 02/21/24 08:00 02/21/24 08:00
I&O
02/20/24 02/21/24 02/22/24
06:59 06:59 06:59
Intake Total 2130 / 2130 910 / 910 480 / 480
Output Total 625 / 625 0 / 0
Balance 1505 / 1505 910 / 910 480 / 480
--- NOTE | 2024-02-21 11:04 | W.PN.GI.CBS2 ---
Addendum entered and electronically signed by Roger Smith MD 02/21/24 12:29:
I saw and examined the patient.
The [employer]'s note was reviewed and I agree with the note.
denies any abdominal pain. IR drain minimal output. Surgical note reviewed
-Okay to advance diet as per surgery
-Antibiotics as per ID
-Follow-up with surgery as outpatient
-Follow-up with Dr. Briot as outpatient-repeat ERCP with stent removal to be scheduled
-Continue follow-up with GI as outpatient. Will sign off
Original Note:
Today's Communication / Plan
-
Follow up with Dr. Brito 03/19/24 at 7:30 am
Diet as per surgery
Assessment / Plan
-
Pt is a 74-year-old male with past medical history of alcoholic cirrhosis with history of remote varices and ascites with last paracentesis in 2014 with history of iron overload, last iron studies within normal limits. He has followed up with
[facility] as he is C2 82Y heterozygous. Her recommendation is to have donation to the [facility] once a year at this point Which he has not recently needed. . He quit drinking alcohol completely in September and has been followed in GI office for chronic
liver disease. . He is continuing on nadolol 40 mg daily as well as spironolactone 100 mg daily, He had a cholecystectomy with Dr. Gabriel in October with ioc, complex case given portal htn and fibrotic tissue obscuring cystic triangle . On routine
ultrasound for HCC surveillance and some RUQ pain it was noted that he had a biloma within the gallbladder fossa. This was confirmed on CT of the abdomen and pelvis. This is measuring up to 5.7 cm. Pt was seen by IR for drainage and with continue
pain saw Dr. Gabriel last week with recommended.GI evaluation for internalizing drain and stenting. He was admitted last week but no ERCP availability and patient was set up for ERCP and stenting 02/15. He completed ERCP with noted papilla in
diverticulum, bile leak found, biliary sphincterotomy completed and stent placed in CBD. On return home noted feeling out of it with shaking chills. On return noted with WBC 16,200 without fever. LFT's with bili 1.7 otherwise normal with normal
lipase. Ct on admission with concern for acute perforated duodenal diverticulum with small periduodenal diverticular abscess. Stent in place without obstruction.
-shaking chills/leukocytosis post ERCP
-biloma s/p IR drainage with persistent leak s/p ERCP with stent 02/15
-CT with concern for duodenal perf and small abscess with stent in good placement
-leukocytosis
-s/p complicated rodriguez October 2023
-abdominal distention/hx ascites(no ascites on US 02/09)
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
- iron overload with [id number] heterozygote with therapeutic phlebotomy
-PE
-PAD
- colon polyps
PLAN:
s/p ERCP 02/15 for stent placement for bile leak - bilirubin is now normalized
CT as noted with concern for Small contained micro duodenal perf and small abscess with stent in good placement
Per surgery will to manage the biliary drain
Continue antibiotics in the setting of small abscess on imaging with leukocytosis and contained microperforation
Blood cultures from 02/16/2024 1 negative and 1 with Klebsiella oxytoca; now improving
tolerating diet, advanced to soft diet per surgery.
OP follows with Dr. Lopez and Светлана [place] for chronic liver disease
Follow up scheduled with Dr. Brito 03/19/24 7:30 am. Patient aware. Card given, in DC instructions.
Subjective
Subjective
Date of Service: February 21, 2024
Patient feeling well. No abdominal pain. Diet advanced to soft. Discussed choices at length with patient. Had loose stool, however did not have BMs until Tuesday after not having BM since last Tuesday. Told to report with any continued loose stools
or diarrhea. IR drain with scant bilious drainage.
Objective
Data Reviewed
Laboratory Data:
Laboratory Results
02/21/24 06:32
02/21/24 06:32
Laboratory Results
PT 15.2 Sec (11.4-14.6) H 02/18/24 07:32
INR 1.17 02/18/24 07:32
Total Bilirubin 0.8 mg/dl (0.2-1.3) 02/21/24 06:32
AST 20 U/L (17-59) 02/21/24 06:32
ALT 16 U/L (0-50) 02/21/24 06:32
Alkaline Phosphatase 68 U/L (38-126) 02/21/24 06:32
Lipase 48 U/L (23-300) 02/21/24 06:32
Vital Signs and I&O:
Vital Signs
Temp Pulse Resp BP Pulse Ox
97.6 F 54 14 119/65 98
02/21/24 08:00 02/21/24 08:00 02/21/24 08:00 02/21/24 08:00 02/21/24 08:00
I&O
02/20/24 02/21/24 02/22/24
06:59 06:59 06:59
Intake Total 2130 / 2130 910 / 910 490 / 490
Output Total 625 / 625 0 / 0
Balance 1505 / 1505 910 / 910 490 / 490
Physical Exam
Physical Exam
HEENT: Anicteric
Cardiology: Normal Sinus Rhythm
Pulmonary: Clear (anterior)
GI: Soft, Non Distended, Non Tender, Normal Bowel Sounds and Other (IR drain RUQ scant bilious drainage)
Extremities: Edema (trace B/L MANDY)
Neuro: Non Focal
--- NOTE | 2024-02-21 11:56 | W.PN.ID1 ---
Date of Service
Date of Service: February 21, 2024
Today's Communication
Continue Augmentin 875mg po bid through 02/29/24.
ID will sign off.
Assessment / Plan
# Perforated duodenum with contained 1.6cm abscess
# Klebsiella bacteremia, GI source
# Post-lap rodriguez c/b bile leak s/p ERCP, CBD stent placement 02/16/24.
- Repeat blood cx's neg.
- Continue Augmentin 875mg po bid through 02/29/24.
#Conditions [employer]
Hypertension
Dyslipidemia
Alcohol cirrhosis with ascites
GERD
Iron overload, therapeutic phlebotomies
history of PE
PAD status post RLE popliteal stent
History of cholecystectomy 10/2023
Lumbar laminectomy/lumbar fusion
Bilateral total knee replacement
umbilical hernia repair
MOHs skin cancer
Chief Complaint
-: Bacteremia
Subjective / Review of Systems
Feels well.
Tolerating soft diet.
Vital Signs / Physical Exam
Vital Signs
Vital Signs
Temp Pulse Resp BP Pulse Ox
97.6 F 54 14 119/65 98
02/21/24 08:00 02/21/24 08:00 02/21/24 08:00 02/21/24 08:00 02/21/24 08:00
Physical Exam
Constitutional: No Acute Distress and Comfortable
Cardiovascular: Regular Rate and S1/S2
Pulmonary: Clear
Gastrointestinal: Soft, Non Tender and Non Distended
Neurological: AO x 3
Objective Data
Lab Data
Lab Results
02/21/24 06:32
02/21/24 06:32
PT 15.2 Sec (11.4-14.6) H 02/18/24 07:32
INR 1.17 02/18/24 07:32
Estimated Creat Clear > 125 ml/min 02/21/24 06:32
Lactic Acid 1.2 mmol/L (0.7-2.0) 02/16/24 22:27
Total Bilirubin 0.8 mg/dl (0.2-1.3) 02/21/24 06:32
AST 20 U/L (17-59) 02/21/24 06:32
ALT 16 U/L (0-50) 02/21/24 06:32
Alkaline Phosphatase 68 U/L (38-126) 02/21/24 06:32
Most recent labs reviewed.
Micro Results:
02/16/24 22:30 Blood Culture - Preliminary
Blood/Venous No Growth in 4 days- Final report to follow
02/17/24 14:29 Blood Culture - Preliminary
Blood/Venous No Growth in 72 hours- Final report to follow
02/17/24 13:54 Blood Culture - Preliminary
Blood/Venous No Growth in 72 hours- Final report to follow
02/16/24 22:27 Blood Culture - Preliminary
Blood/Venous Klebsiella oxytoca
Gram Stain - Preliminary
02/16/24 22:27 Influenza Types A & B (LOVE) - Final
Nasal Swab Negative for Influenza A & B, NAAT
Negative results must be combined with clinical observations
and patient history.
Nucleic Acid Amplification test (NAAT)performed on the
[employer] platform.
Blood Culture Preliminary 02/19/24-1001
Positive for Klebsiella oxytoca by [employer]
Nucleic Acid Methodology.
Organism 1 Klebsiella oxytoca
1. Klebsiella oxytoca
M.I.C. RX
--------- ---
Amoxicillin/Potas. Clavulanate <=8/4 S
Ampicillin >16 R
Ampicillin/Sulbactam 8/4 S
Aztreonam <=4 S
Cefazolin 8 R
Cefepime <=2 S
Ceftazidime <=1 S
Ceftriaxone <=1 S
Ertapenem <=0.5 S
Ciprofloxacin <=0.25 S
Gentamicin <=2 S
Meropenem <=1 S
Piperacillin/Tazobactam <=8 S
Tetracycline <=4 S
Tobramycin <=2 S
Trimethoprim/Sulfamethoxazole <=2/38 S
02/17/24 CT a/p: ACUTE PERFORATED DUODENAL DIVERTICULUM along the medial wall of the 2nd portion of the duodenum with moderate surrounding edema and inflammation extending into the pancreatic head. Small 1.6 cm periduodenal/peridiverticular abscess.
Plastic biliary stent in place without evidence for obstruction. Percutaneous drain in the right subhepatic space at the site of previous cholecystectomy.
01/19/24 CT a/p: Thin-walled ovoid fluid collection in the gallbladder fossa measuring up to 5.7 cm. No surrounding inflammation. Findings likely represent a postoperative seroma or biloma.
02/20/24 UGI series: On initial imaging, there is predominantly homogeneous activity seen throughout the duodenum. On delayed imaging, just lateral and adjacent to a biliary stent there is small volume extension of contrast material which appears to
be beyond the wall of the medial duodenum extending slightly superiorly, suspicious for small volume duodenal perforation.
--- NOTE | 2024-02-21 11:58 | W.DCSUMMARY ---
Discharge Summary
Discharge Data
Date of Admission: 02/17/24
Date of Discharge: 02/21/24
-
Pending Results: No
Hospital Course
Patient is 74 years old with history of alcohol cirrhosis, iron overload, symptomatic chronic calculus cholecystitis recently underwent laparoscopic cholecystectomy on October 2023 and January 12 for a hepatic cancer screening and an abdominal
ultrasound that showed complex fluid collection within the gallbladder fossa and on January 18 CAT scan of the abdomen shows collection 5.7 cm in the fourth so he underwent IR percutaneous drain placement on January 29 with culture negative and on
February 15 he underwent ERCP with placement of stent in the common bile duct for bile leak but unfortunately postprocedure he developed worsening abdominal pain and shaking chills and fevers and presented to the hospital on February 16. CAT scan
on admission showed perforated duodenum with contained abscess and he was kept n.p.o. IV fluids and antibiotics. Surgery and ID were consulted. Blood cultures were positive for Klebsiella. Follow-up blood cultures revealed clearance. His white
blood cell count came down to normal. Surgery felt that he had microperforation. He was continued on IR drain to gravity and on antibiotics and pain control. GI was also consulted. Patient did well rest of hospital stay. He was able to be
advanced to soft solid food diet. Surgery recommended maintain IR drain for another week post ERCP and daily flush to ensure drain patency. GI will follow-up as outpatient for repeat ERCP with stent removal to be scheduled as outpatient.
Antibiotics were able to be switched to oral. Otherwise, patient is hemodynamically stable and afebrile tolerating diet and abdominal pain-free. Surgery ID and GI have cleared him for discharge. He will be discharged in stable condition today.
Discharge duration: 35 minutes
Discharge Plan
-
Patient Disposition: Home (Routine Discharge)
Discharge Diagnosis/Procedures: Sepsis. Duodenal microperforation. Klebsiella bacteremia.
Diet: Other diet
Additional Diets: Soft bite sized diet.
Activity: As tolerated
Bathing Restrictions: OK to Shower
Blood Work: Please PCP to order CBC, CMP within 1 week
Activity Restrictions/Additional Instructions:
Change the dressing over your drain with a clean gauze sponge daily and as needed if soiled. Ok to remove for showers. Use sterile saline to flush the drain daily (5ml toward the body and 5ml toward the bag). Keep track of the drainage for your
follow up appointment with the surgeon.
Referrals:
Hernesto Brito MD [Active] - 03/19/24 7:30 am (4 week follow up with Dr. Brito for stent management )
Dread Gabriel MD [Active] - in two weeks
Surinder Cornelius CRNP [Family Provider] - in less than 1 week
Prescriptions:
New
sodium chloride 0.9 % (flush) [Normal Saline Flush] Syringe
10 ml intra-catheter DAILY Qty: 200 0RF
Rx Instructions:
flush drain daily 5ml toward the body and 5ml toward the bag
tramadol 50 mg tablet
50 mg PO BID PRN (Reason: severe pain) Qty: 10 0RF
amoxicillin-pot clavulanate 875-125 mg Tablet
1 tab PO Q12 9 Days Qty: 18 0RF
Continued
spironolactone 100 MG tablet
100 mg PO DAILY
nadolol 40 MG tablet
40 mg PO HS
omeprazole 40 mg Capsule,Delayed Release(Dr/Ec)
40 mg PO DAILY
cyanocobalamin (vitamin B-12) 1,000 mcg Tablet
1,000 mcg PO DAILY
sildenafil 100 mg Tablet
100 mg PO DAILYPRN PRN (Reason: ed)
zinc sulfate 50 mg zinc (220 mg) Tablet
50 mg PO DAILY
pyridoxine (vitamin B6) 100 mg Tablet
100 mg PO DAILY
fluticasone propionate 50 mcg/actuation [place],Suspension
1 spray INTRANASAL DAILYPRN PRN (Reason: congestion)
biotin 1 mg Tablet
1 mg PO DAILY
Systane (PF) 0.4-0.3 % [place]
1 drp BOTH EYES Q4HPRN PRN (Reason: dry eyes)
Discontinued
milk thistle 150 mg Capsule
150 mg PO DAILY
aspirin 81 mg Tablet,Chewable
81 mg PO DAILY Qty: 90 0RF
acetaminophen [acetaminophen] 325 mg tablet
650 mg PO Q4HPRN PRN (Reason: mild pain) Qty: 1 0RF
ibuprofen 200 mg tablet
400 - 600 mg PO Q6HPRN PRN (Reason: moderate pain) Qty: 1 0RF
Discharge Orders:
Discharge Patient (As Directed); Ordered 02/21/24
Ordered By: Toro Garrett
Discharge Date and Time
Discharge Date/Time: 02/21/24 15:01
Print Language: CITIZEN OF [place]
[2024-02-21 12:34] VITALS: BP 105/58
[2024-02-21] MEDS: AUGMENTIN 875 MG/125 MG 1 TABLET PO (12:36)
--- NOTE | 2024-02-22 08:12 | CM ---
Late entry: Patient left before CM was able to speak with the patient.
--- NOTE | 2024-02-23 11:21 | PN.CDI ---
CDI
- -
CDI:
Physician Documentation Request
Admit Date: 02/17/24 02:16
Dear Doctor Alma Rosa,
Please review the following and provide your response in the progress notes.
Clinical Indicators:
ED, 02/16
#Chief Complaint: Post Operative Problem(s)
PN,02/17
#Sepsis (fever, weakness) 2/2 duodenal diverticular perforation
#...Zosyn
#Hx of bile leak s/p cholecystectomy
#...with FRANKLIN norman - properly positioned as per CT
#s/p ERCP with biliary stent - properly positioned as per ERCP
GI, PN, 02/17
#s/p ERCP 02/15 for stent placement for bile leak
#...CT as noted with concern for Small contained micro duodenal perf
#...and small abscess with stent in good placement
#Continue antibiotics in the setting of small abscess on imaging
#...with leukocytosis and contained microperforation
Based on the above and your clinical assessment, please clarify the following:
Sepsis/duodenal perforation/abscess is a complication of the ERCP
Sepsis/duodenal perforation/abscess is unexpected but is NOT a complication of the ERCP
Sepsis/duodenal perforation/abscess is inherent to/unavoidable during the ERCP and is not a complication
Other(please specify)
Use of terms such as suspected, likely, concern for, or probable (associated with a specific diagnosis that is being evaluated, monitored, or treated as if it exists) are acceptable and can be coded in the inpatient setting, when documented at the
time of discharge.
Thank you,
Genevieve Baker RN BSN CCDS
CDI Specialist
please contact via tiger text
Please use your independent medical judgment in providing your response.
== END 2024-02-21 15:01 | disposition home or self-care (01) | DRG 862 ==
LOC: 2 NORTH 02:16
PROVIDERS: Internal Medicine; Nurse Practitioner Adult Health; Physician Assistant; ADMITTING PHYSICIAN Hospitalist; ATTENDING PHYSICIAN Hospitalist; CONSULT PHYSICIAN Internal Medicine; CONSULT PHYSICIAN Internal Medicine Infectious Disease; EMERGENCY PHYSICIAN Emergency Medicine; FAMILY PHYSICIAN Registered Nurse; OTHER PHYSICIAN Surgery
DX: T81.43XA Infection following a procedure, organ and space surgical site, initial encounter (principal); A41.59 Other Gram-negative sepsis; K65.1 Peritoneal abscess; K91.89 Other postprocedural complications and disorders of digestive system; K76.6 Portal hypertension; T81.44XA Sepsis following a procedure, initial encounter; K70.31 Alcoholic cirrhosis of liver with ascites; K21.9 Gastro-esophageal reflux disease without esophagitis; E78.00 Pure hypercholesterolemia, unspecified; I10 Essential (primary) hypertension; I25.10 Atherosclerotic heart disease of native coronary artery without angina pectoris; I73.9 Peripheral vascular disease, unspecified; Y83.8 Other surgical procedures as the cause of abnormal reaction of the patient, or of later complication, without mention of misadventure at the time of the procedure; Z96.89 Presence of other specified functional implants; Z98.1 Arthrodesis status; Z96.653 Presence of artificial knee joint, bilateral; Z90.49 Acquired absence of other specified parts of digestive tract; Z86.711 Personal history of pulmonary embolism; Z79.82 Long term (current) use of aspirin; Z79.899 Other long term (current) drug therapy; Z95.820 Peripheral vascular angioplasty status with implants and grafts; Z11.52 Encounter for screening for COVID-19
CPT/HCPCS: 74177; 74240; 74330; 76000; 80048; 80053; 80076; 81003; 83605; 83690; 85025; 85027; 85610; 87040; 87149; 87186; 87205; 87502; 87811; 93005; 96365; 96375; 99285; C1769; C2625; Q9967

== ENCOUNTER → 2024-03-06 09:36 | Outpatient (REF) | payer MEDICARE, BC, SELFPAY | LOC: RAD 09:36 | PROVIDERS: ATTENDING PHYSICIAN Surgery; FAMILY PHYSICIAN Registered Nurse | DX: K63.1 Perforation of intestine (nontraumatic) (principal) | CPT/HCPCS: 78226; A9537 ==

== ENCOUNTER 2024-04-11 06:25 | Day surgery (SDC) | payer OTHER, SELFPAY ==
[2024-04-11 09:55] VITALS: BMI 29.2
[2024-04-11 09:57] VITALS: BP 119/74
[2024-04-11 11:26] VITALS: BP 92/52
[2024-04-11 11:30] VITALS: BP 96/59
[2024-04-11 11:45] VITALS: BP 114/68
[2024-04-11 11:57] VITALS: BP 118/84
== END 2024-04-11 12:03 | disposition home or self-care (01) ==
LOC: SDS 06:25
PROVIDERS: ATTENDING PHYSICIAN Internal Medicine Gastroenterology
DX: K83.9 Disease of biliary tract, unspecified (principal); Z46.59 Encounter for fitting and adjustment of other gastrointestinal appliance and device
CPT/HCPCS: 43247

== ENCOUNTER → 2024-08-13 06:42 | Outpatient (REF) | payer OTHER, SELFPAY | LOC: RAD 06:42 | PROVIDERS: ATTENDING PHYSICIAN Surgery Vascular Surgery; FAMILY PHYSICIAN Registered Nurse | DX: I73.9 Peripheral vascular disease, unspecified (principal) | CPT/HCPCS: 93922; 93925 ==

== ENCOUNTER → 2025-02-19 07:11 | Outpatient (REF) | payer OTHER, SELFPAY | LOC: HWRAD 07:11 | PROVIDERS: ATTENDING PHYSICIAN Nurse Practitioner; FAMILY PHYSICIAN Registered Nurse | DX: K70.31 Alcoholic cirrhosis of liver with ascites (principal) | CPT/HCPCS: 76700 ==

== ENCOUNTER → 2025-03-04 07:01 | Outpatient (REF) | payer OTHER, SELFPAY | LOC: RAD 07:01 | PROVIDERS: ATTENDING PHYSICIAN Surgery Vascular Surgery | DX: I73.9 Peripheral vascular disease, unspecified (principal); I65.23 Occlusion and stenosis of bilateral carotid arteries | CPT/HCPCS: 93880; 93922; 93925 ==